=== PATIENT | female | born 1950 | race Caucasian/White ===

== ENCOUNTER 2024-01-27 11:14 | Outpatient (OUT) | payer MEDICARE, OTHER, SELFPAY ==
--- NOTE | 2024-01-27 11:30 | MM_ITS ---
Patient Name: SHANTLA DURAN MR#: [id number] : 1950 Exam Date: 01/27/2024 Ordering Doctor: DR Eddie Sandoval . RADIOLOGY REPORT PROCEDURE: MM TOMOSYNTHESIS SCREENING BI COMPARISON: MG MAMM SCREEN 3D VALERIANO CAD, 06/01/2021. MG MAMM SCREEN 3D VALERIANO CAD, 10/10/2022. INDICATIONS: screening Calculator Name NCI Breast Cancer Risk Assessment Tool 5 Year Breast Cancer Risk 2.40% Lifetime Breast Cancer Risk 5.50% Personal Breast Cancer No Personal Ovarian Cancer No Treatments None Family Cancers Father with hodgkins cancer at age 45; Brother with throat cancer at age 57. LOCATION: [facility] BREAST COMPOSITION: Heterogeneously dense,which may obscure small masses. FINDINGS: DIAGNOSTIC CATEGORY 2--BENIGN FINDING. NO CHANGE FROM COMPARISON. Scattered benign-appearing calcifications are present. Scattered benign-appearing lymph nodes are present. RIGHT BREAST: No significant suspicious finding. Microclip marker is stable LEFT BREAST: No significant suspicious finding. RECOMMENDATIONS: ROUTINE MAMMOGRAM AND CLINICAL EVALUATION IN 12 MONTHS. PLEASE NOTE: A NORMAL MAMMOGRAM DOES NOT EXCLUDE THE POSSIBILITY OF BREAST CANCER. A CLINICALLY SUSPICIOUS PALPABLE LUMP SHOULD BE BIOPSIED. Dictated by: Mathieu Combs MD on 01/27/2024 at 12:20 Approved by: Mathieu Combs MD on 01/27/2024 at 12:23
[2024-01-27 11:31] LABS: Basophils Absolute Auto 0.1 10^3/uL (0.0-0.1); Basophils Percent Auto 1.1 % (0.2-2.0); Eosinophils Absolute Auto 0.1 10^3/uL (0.0-0.7); Eosinophils Percent Auto 1.1 % (0.9-7.0); Hematocrit 44.8 % (36.0-48.0); Hemoglobin 14.1 g/dL (12.0-16.0); Immature Granulocytes Abs Auto 0.01 10^3/uL (0.00-0.03); Immature Granulocytes Pct Auto 0.1 % (0.0-0.5); Lymphocytes Absolute Auto 2.4 10^3/uL (1.2-3.8); Lymphocytes Percent Auto 32.7 % (20.5-60.0); Mean Corpuscular HGB Conc 31.5 g/dL (29.9-35.2); Mean Corpuscular Hemoglobin 28.3 pg (26.7-34.0); Mean Platelet Volume 9.6 fL (9.5-13.5); Monocytes Absolute Auto 0.5 10^3/uL (0.3-0.8); Monocytes Percent Auto 6.2 % (1.7-12.0); Neutrophils Absolute Auto 4.3 10^3/uL (1.4-6.5); Neutrophils Percent Auto 58.8 % (43.0-75.0); Platelet Count 329 10^3/uL (150-450); Red Blood Count 4.98 10^6/uL (4.20-5.40); Red Cell Distribution Width 14.6 % (11.0-15.0); White Blood Count 7.3 10^3/uL (4.0-11.0)
[2024-01-27 11:43] LABS: Estimated Average Glucose 134 mg/dL; Glycohemoglobin A1C 6.3 % (4.5-6.2)
[2024-01-27 11:48] LABS: Occult Blood Negative
[2024-01-27 12:09] LABS: Alanine Aminotransferase 37 U/L (14-59); Albumin Globulin Ratio 0.8; Albumin Level 3.4 g/dL (3.4-5.0); Alkaline Phosphatase 87 U/L (46-116); Anion Gap 11.8; Aspartate Amino Transferase 24 U/L (15-37); BUN Creatinine Ratio 11.8; Bilirubin Total 0.4 mg/dL (0.2-1.0); Calcium 9.3 mg/dL (8.5-10.1); Carbon Dioxide 30.3 mmol/L (21.0-32.0); Chloride 101 mmol/L (98-107); Cholesterol 173 mg/dL (<=200); Estimated GFR (African America >60 (>=60); Estimated GFR (Non-African Ame 53 (>=60); Free T3 3.02 pg/mL (2.18-3.98); Globulin 4.1 g/dL; Glucose 113 mg/dL (74-106); HDL Cholesterol 57 mg/dL (40-60); Potassium 4.1 mmol/L (3.5-5.1); Sodium 139 mmol/L (136-145); Thyroid Stimulating Hormone 0.634 uIU/mL (0.358-3.740); Total Protein 7.5 g/dL (6.4-8.2); Triglycerides 155 mg/dL (<=150)
== END 2024-01-27 11:15 | disposition home or self-care (01) ==
LOC: MAMMO 11:15
PROVIDERS: PCP Family Medicine; Visit Provider Family Medicine
DX: Z12.31 Encounter for screening mammogram for malignant neoplasm of breast (principal); J44.9 Chronic obstructive pulmonary disease, unspecified; E11.9 Type 2 diabetes mellitus without complications; E78.5 Hyperlipidemia, unspecified; R73.09 Other abnormal glucose; Z12.12 Encounter for screening for malignant neoplasm of rectum; D64.9 Anemia, unspecified; E55.9 Vitamin D deficiency, unspecified; Z80.7 Family history of other malignant neoplasms of lymphoid, hematopoietic and related tissues; Z80.8 Family history of malignant neoplasm of other organs or systems
CPT/HCPCS: 36415; 77063; 77067; 80053; 80061; 82306; 83036; 83540; 84436; 84443; 84481; 85025; G0328

== ENCOUNTER 2025-01-27 12:32 | Outpatient (OUT) | payer MEDICARE, OTHER, SELFPAY ==
--- NOTE | 2025-01-27 | MM_ITS ---
Patient Name: SHANTAL DURAN MR#: [id number] : 1950 Exam Date: 01/27/2025 Ordering Doctor: DR Eddie Sandoval . RADIOLOGY REPORT PROCEDURE: MM TOMOSYNTHESIS SCREENING BI COMPARISON: MM TOMOSYNTHESIS SCREENING BI, 01/27/2024. MG MAMM SCREEN 3D VALERIANO CAD, 10/10/2022. MG MAMM SCREEN 3D VALERIANO CAD, 06/01/2021. MG MAMM VALERIANO SCRN W CAD DIG, 06/02/2015. INDICATIONS: Screening Calculator Name NCI Breast Cancer Risk Assessment Tool 5 Year Breast Cancer Risk 2.40% Lifetime Breast Cancer Risk 5.10% Personal Breast Cancer No Personal Ovarian Cancer No Treatments None Family Cancers Father with hodgkins cancer at age 45; Brother with throat cancer at age 57. LOCATION: [facility] BREAST COMPOSITION: The breasts are heterogeneously dense,which may obscure small masses. FINDINGS: DIAGNOSTIC CATEGORY 1--NEGATIVE. LEFT BREAST: No significant suspicious finding. RIGHT BREAST: No significant suspicious finding. RECOMMENDATIONS: ROUTINE MAMMOGRAM AND CLINICAL EVALUATION IN 12 MONTHS. PLEASE NOTE: A NORMAL MAMMOGRAM DOES NOT EXCLUDE THE POSSIBILITY OF BREAST CANCER. A CLINICALLY SUSPICIOUS PALPABLE LUMP SHOULD BE BIOPSIED. Dictated by: Mook Wood DO on 01/27/2025 at 16:05 Approved by: Mook Wood DO on 01/27/2025 at 16:06
--- OUTSIDE RECORDS SUMMARY | 2025-01-27 12:38 | XMS_ITS | CCD ---
Author Organization [facility] Care Team Providers Care Ethical Hacker Name Role Phone ANGELAY ., DR HERRMANN Consulting Unavailable HOY ., DR HERRMANN Admitting Unavailable HOY ., DR HERRMANN Primary Care Unavailable HOY ., DR HERRMANN Attending Unavailable WEST, DR MJ Ames Consulting Unavailable HOY ., DR HERRMANN Consulting Unavailable HOY ., DR HERRMANN Attending Unavailable HOY ., DR HERRMANN Admitting Unavailable HOY ., DR HERRMANN Primary Care Unavailable HOY ., DR HERRMANN Attending Unavailable HOY ., DR HERRMANN Admitting Unavailable HOY ., DR HERRMANN Primary Care Unavailable HOY ., DR HERRMANN Consulting Unavailable WEST, DR MJ Ames Consulting Unavailable HOY ., DR HERRMANN Admitting Unavailable HOY ., DR HERRMANN Primary Care Unavailable HOY ., DR HERRMANN Attending Unavailable HOY ., DR HERRMANN Consulting Unavailable HOY ., DR HERRMANN Attending Unavailable HOY ., DR HERRMANN Admitting Unavailable HOY ., DR HERRMANN Primary Care Unavailable HOY ., DR HERRMANN Consulting Unavailable HOY ., DR HERRMANN Admitting Unavailable HOY ., DR HERRMANN Primary Care Unavailable HOY ., DR HERRMANN Attending Unavailable Al Shweiki, Bharat Attending Unavailable Al Shweiki, Bharat Referring Unavailable Al Shweiki, Bharat Attending Unavailable Al Shweiki, Bharat Referring Unavailable Al Shweiki, Bharat Attending Unavailable Al Shweiki, Bharat Referring Unavailable Al Shweiki, Bharat Attending Unavailable Al Shweiki, Bharat Referring Unavailable Al Shweiki, Bharat Attending Unavailable Al Shweiki, Bharat Referring Unavailable Allergies Allergy Classification Reported Allergen(s) Allergy Type Date of Onset Reaction(s) Facility (2 sources) Iodine (And Iodine Containting Drugs) Drug allergy (disorder) [facility] Repository Problems Active Problems Problem Classification Problem Date Documented Da te Episodic/Chronic Cataract (1 source) Combined forms of age-related cataract, bilateral; Translations: [Combined forms of age-related cataract of both eyes] Onset: 07-27-2024 Chronic Congestive heart failure; nonhypertensive (1 source) Heart failure, unspecified; Translations: [HEART FAILURE UNSPECIFIED] Onset: 01-19-2023 Chronic Diabetes mellitus without complication (1 source) Other abnormal glucose; Translations: [OTHER ABNORMAL GLUCOSE] Onset: 01-19-2023 Episodic Disorders of lipid metabolism (5 sources) Hyperlipidemia, unspecified; Translations: [HYPERLIPIDEMIA UNSPECIFIED] Onset: 01-14-2023 Chronic Essential hypertension (1 source) Essential (primary) hypertension; Translations: [Hypertension] Onset: 10-12-2024 Chronic Malaise and fatigue (1 source) Other fatigue; Translations: [OTHER FATIGUE] Onset: 01-17-2023 Episodic Menopausal disorders (4 sources) Other primary ovarian failure; Translations: [OTHER PRIMARY OVARIAN FAILURE] Onset: 10-10-2022 Chronic Nutritional deficiencies (1 source) Vitamin D deficiency, unspecified; Translations: [VITAMIN D DEFICIENCY UNSPECIFIED] Onset: 01-17-2023 Chronic Other eye disorders (1 source) Vitreous degeneration, bilateral; Translations: [PVD (posterior vitreous detachment), both eyes] Onset: 07-27-2024 Chronic Other screening for suspected conditions (not mental disorders or infectious disease) (6 sources) Encounter for screening for malignant neoplasm of rectum; Translations: [Encounter for screening mammogram for malignant neoplasm of breast] Onset: 10-14-2022 Episodic Retinal detachments; defects; vascular occlusion; and retinopathy (2 sources) Nonexudative age-related macular degeneration, bilateral, 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; Translations: [Exudative age-related macular degeneration, bilateral, with active choroidal neovascularization] Onset: 07-27-2024 Chronic Thyroid disorders (1 source) Nontoxic single thyroid nodule; Translations: [NONTOXIC SINGLE THYROID NODULE] Onset: 05-16-2022 Chronic Unclassified (3 sources) CONTACT W/AND (SUSP) EXPOS COVID-19; Translations: [CONTACT W/AND (SUSP) EXPOS COVID-19] Onset: 10-07-2022 Unclassified (1 source) COUGH, UNSPECIFIED; Translations: [COUGH, UNSPECIFIED] Onset: 10-07-2022 Past or Other Problems Problem Classification Problem Date Documented Date Episodic/Chronic Other eye disorders (1 source) Dry eye syndrome of bilateral lacrimal glands; Translations: [Dry eyes, bilateral] Onset: 07-27-2024 Episodic Other skin disorders (4 sources) Localized swelling, mass and lump, neck; Translations: [LOCALIZED SWELLING MASS AND LUMP NECK] Onset: 05-14-2022 Episodic Other upper respiratory disease (1 source) Nasal congestion; Translations: [NASAL CONGESTION] Onset: 10-07-2022 Episodic Residual codes; unclassified (1 source) Family history of malignant neoplasm of other respiratory and intrathoracic organs; Translations: [FAM HX MAL NEOPLSM OTH RESP AND IT ORGN] Onset: 10-14-2022 Episodic Residual codes; unclassified (1 source) Family history of other malignant neoplasms of lymphoid, hematopoietic and related tissues; Translations: [FAM HX OTH MAL GREGORIO LYMPH HEMATPOETC] Onset: 10-14-2022 Episodic Unclassified (1 source) CONTACT W/AND (SUSP) EXPOS COVID-19; Translations: [CONTACT W/AND (SUSP) EXPOS COVID-19] Onset: 10-04-2022 Results Test Name Value Interpretation Reference Range Facility OCC BLD IMMUNO SCREENon 12-26 OCCULT BLOOD Negative Normal NEGATIVE [facility] Comment on above: Performed By: #### O BSCRN #### [facility] [address] [address] [address] Pascual Pittman BNPon 01-14-2023 Natriuretic peptide B (Bld) [Mass/Vol] 44.0 pg/mL Normal <=900.0 [facility] Comment on above: Performed By: #### F T3, BNP, LIPID, TSH, T4, CMP ####[facility] [address] [place], [place] [address]YzDr. Pascual Pittman CBC AUTO DIFFon 01-14-2023 BASO # 0.0 103/ul Normal 0.0-0.1 [facility] Comment on above: Performed By: #### C BC #### [facility] [address] [place], [place] [address] Dr. Pascual Pittman Basophils/100 WBC (Bld) 0.6 % Normal 0.2-2.0 [facility] Comment on above: Performed By: #### C BC #### [facility] [address] [place] [address] Dr. Pascual Pittman EO # 0.1 103/ul Normal 0.0-0.7 [facility] Comment on above: Performed By: #### C BC #### [facility] [address] [place] [address] Dr. Pascual Pittman Eosinophils/100 WBC (Bld) 1.1 % Normal 0.9-7.0 [facility] Comment on above: Performed By: #### C BC #### [facility] [address] [place] [address] Dr. Pascual Pittman Erythrocyte distribution width (RBC) [Ratio] 14.8 % Normal 11.0-15.0 [facility] Comment on above: Performed By: #### C BC #### [facility] [address] [place] [address] Dr. Pascual Pittman Hematocrit (Bld) [Volume fraction] 43.4 % Normal 36.0-48.0 [facility] Comment on above: Performed By: #### C BC #### [facility] [address] [place] [address] Dr. Pascual Pittman Hemoglobin (Bld) [Mass/Vol] 13.8 g/dL Normal 12.0-16.0 [facility] Comment on above: Performed By: #### C BC #### [facility] [address] [place] [address] Dr. Pascual Pittman IG # 0.02 10e3/ul Normal 0.00-0.03 [facility] Comment on above: Performed By: #### C BC #### [facility] [address] [place] [address] Dr. Pascual Pittman IG % 0.3 % Normal 0.0-0.5 [facility] Comment on above: Performed By: #### C BC #### [facility] [address] [place] [address] Dr. Pascual Pittman LYMPH # 2.1 103/ul Normal 1.2-3.8 [facility] Comment on above: Performed By: #### C BC #### [facility] [address] [place] [address] Dr. Pascual Pittman Lymphocytes/100 WBC (Bld) 32.3 % Normal 20.5-60.0 [facility] Comment on above: Performed By: #### C BC #### [facility] [address] [place] [address] Dr. Pascual Pittman MANUAL DIFF REQ NO Normal [facility] Comment on above: Performed By: #### C BC #### [facility] [address] [place] [address] Dr. Pascual Pittman MCH (RBC) [Entitic mass] 28.0 pg Normal 26.7-34.0 [facility] Comment on above: Performed By: #### C BC #### [facility] [address] [place] [address] Dr. Pascual Pittman MCHC (RBC) [Mass/Vol] 31.8 g/dL Normal 29.9-35.2 [facility] Comment on above: Performed By: #### C BC #### [facility] [address] [place] [address] Dr. Pascual Pittman MCV (RBC) [Entitic vol] 88.0 fL Normal 81.0-99.0 [facility] Comment on above: Performed By: #### C BC #### [facility] [address] [place] [address] Dr. Pascual Pittman MONO # 0.5 103/ul Normal 0.3-0.8 [facility] Comment on above: Performed By: #### C BC #### [facility] [address] [place] [address] Dr. Pascual Pittman Monocytes/100 WBC (Bld) 7.0 % Normal 1.7-12.0 [facility] Comment on above: Performed By: #### C BC #### [facility] [address] [place] [address] Dr. Pascual Pittman NEUT # 3.8 103/ul Normal 1.4-6.5 [facility] Comment on above: Performed By: #### C BC #### [facility] [address] [address] [address] Pascual Pittman Neutrophils/100 WBC (Bld) 58.7 % Normal 43.0-75.0 [facility] Comment on above: Performed By: #### C BC #### [facility] [address] [address] [address] Pascual Pittman Platelet mean volume (Bld) [Entitic vol] 9.5 fL Normal 9.5-13.5 [facility] Comment on above: Performed By: #### C BC #### [facility] [address] [address] [address] Pascual Pittman PLT 318 103/ul Normal 150-450 [facility] Comment on above: Performed By: #### C BC #### [facility] [address] [address] [address] Pascual Pittman RBC 4.93 106/ul Normal 4.20-5.40 [facility] Comment on above: Performed By: #### C BC #### [facility] [address] [address] [address] Pascual Pittman WBC 6.5 103/ul Normal 4.0-11.0 [facility] Comment on above: Performed By: #### C BC #### [facility] [address] [address] [address] Pascual Pittman FREE T3on 01-14-2023 FREE T3 2.78 pg/mlL Normal 2.18-3.98 [facility] Comment on above: Performed By: #### F T3, BNP, LIPID, TSH, T4, CMP ####[facility] [address] [address]Dr. Pascual Pittman GLYCOHEMOGLOBIN A1Con 2022 ADA RECOMMENDATION SEE BELOW Normal [facility] Comment on above: Result Comment: ADA RECOMMENDED LIMIT 4.0 - 6.0 ADA THERAPEUTIC TARGET < 7.0 ACTION SUGGESTED > 7.0 Performed By: #### A 1C ####[facility] [address] [address]Dr. Pascual Pittman Glucose [Mass/Vol] 123 mg/dL Normal [facility] Comment on above: Performed By: #### A 1C ####[facility] [address] [id number][address] Pascual Pittman HbA1c (Bld) [Mass fraction] 5.9 % Normal 4.5-6.2 [facility] Comment on above: Performed By: #### A 1C ####[facility] [address] [id number]. Pascual Pittman LIPID PROFILEon 01-14-2023 CHOL-HDL RATIO NORM SEE BELOW Normal [facility] Comment on above: Result Comment: 3.3 - 4.4 LOW RISK 4.4 - 7.1 AVERAGE RISK 7.1 - 11.0 MODERATE RISK >11.0 HIGH RISK Performed By: #### F T3, BNP, LIPID, TSH, T4, CMP ####[facility] [address] [place], [place] [address]Dr. Pascual Pittman Cholesterol [Mass/Vol] 190 mg/dL Normal <=200 [facility] Comment on above: Performed By: #### F T3, BNP, LIPID, TSH, T4, CMP ####[facility] [address] [place], [place] [address]Dr. Pascual Pittman Cholesterol in HDL [Mass/Vol] 56 mg/dL Normal 40-60 [facility] Comment on above: Performed By: #### F T3, BNP, LIPID, TSH, T4, CMP ####[facility] [address] [id number][address] Pascual Pittman Cholesterol in LDL [Mass/Vol] 97.8 mg/dL Normal [facility] Comment on above: Performed By: #### F T3, BNP, LIPID, TSH, T4, CMP ####[facility] [address] [id number][address] Pascual Pittman Cholesterol.total/Cho lesterol in HDL [Mass ratio] 3.4 {ratio} Normal [facility] Comment on above: Performed By: #### F T3, BNP, LIPID, TSH, T4, CMP ####[facility] [address] [id number][address] Pascual Pittman HDL NORMAL > or = 60 mg/dl - LO W CARDIOVASCULAR RISK <40 mg/dl - HIGH CARDIOVASCULAR RISK Normal [facility] Comment on above: Performed By: #### F T3, BNP, LIPID, TSH, T4, CMP ####[facility] [address] [address]DrSharonda Pittman LDL CALC NORMAL SEE BELOW Normal [facility] Comment on above: Result Comment: <100 mg/dl OPTIMAL 100 - 129 mg/dl NEAR OR ABOVE OPTIMAL 130 - 159 mg/dl BORDERLINE HIGH 160 - 189 mg/dl HIGH >190 mg/dl VERY HIGH Performed By: #### F T3, BNP, LIPID, TSH, T4, CMP ####[facility] [address] [address]DrSharonda Pittman Triglyceride [Mass/Vol] 181 mg/dL Critically high <=150 [facility] Comment on above: Performed By: #### F T3, BNP, LIPID, TSH, T4, CMP ####[facility] [address] [address]DrSharonda Pittman VLDL CALC 36.2 mg/dL Normal [facility] Comment on above: Performed By: #### F T3, BNP, LIPID, TSH, T4, CMP ####[facility] [address] [address]Dr. Pascual Pittman PROF 14(COMP METB)on 023 Albumin [Mass/Vol] 3.8 g/dL Normal 3.4-5.0 [facility] Comment on above: Performed By: #### F T3, BNP, LIPID, TSH, T4, CMP #### [facility] [address] [place] [address] Dr. Pascual Pittman Albumin/Globulin [Mass ratio] 1.0 {ratio} Normal [facility] Comment on above: Performed By: #### F T3, BNP, LIPID, TSH, T4, CMP #### [facility] [address] [place] [address] Dr. Pascual Pittman ALP [Catalytic activity/Vol] 101 U/L Normal 46-116 [facility] Comment on above: Performed By: #### F T3, BNP, LIPID, TSH, T4, CMP #### [facility] [address] [place] [address] Dr. Pascual Pittman ALT [Catalytic activity/Vol] 28 U/L Normal 14-59 [facility] Comment on above: Performed By: #### F T3, BNP, LIPID, TSH, T4, CMP #### [facility] [address] [place] [address] Dr. Pascual Pittman Anion gap [Moles/Vol] 11.3 mmol/L Normal [facility] Comment on above: Performed By: #### F T3, BNP, LIPID, TSH, T4, CMP #### [facility] [address] [place] [address] Dr. Pascual Pittman AST [Catalytic activity/Vol] 19 U/L Normal 15-37 [facility] Comment on above: Performed By: #### F T3, BNP, LIPID, TSH, T4, CMP #### [facility] [address] [place] [address] Dr. Pascual Pittman Bilirubin [Mass/Vol] 0.3 mg/dL Normal 0.2-1.0 [facility] Comment on above: Performed By: #### F T3, BNP, LIPID, TSH, T4, CMP #### [facility] [address] [place] [address] Dr. Pascual Pittman Calcium [Mass/Vol] 10.0 mg/dL Normal 8.5-10.1 [facility] Comment on above: Performed By: #### F T3, BNP, LIPID, TSH, T4, CMP #### [facility] [address] [place] [address] Dr. Pascual Pittman Chloride [Moles/Vol] 102 mmol/L Normal 98-107 [facility] Comment on above: Performed By: #### F T3, BNP, LIPID, TSH, T4, CMP #### [facility] [address] [place] [address] Dr. Pascual Pittman CO2 [Moles/Vol] 30.0 mmol/L Normal 21.0-32.0 [facility] Comment on above: Performed By: #### F T3, BNP, LIPID, TSH, T4, CMP #### [facility] [address] [address] [address] Pascual Pittman Creatinine [Mass/Vol] 0.75 mg/dL Normal 0.55-1.02 [facility] Comment on above: Performed By: #### F T3, BNP, LIPID, TSH, T4, CMP #### [facility] [address] [address] [address] Pascual Pittman EGFR-AF SAUDI ARABIAN >60 Normal >=60 [facility] Comment on above: Performed By: #### F T3, BNP, LIPID, TSH, T4, CMP #### [facility] [address] [address] [address] Pascual Pittman EGFR-NON AF SAUDI ARABIAN >60 Normal >=60 [facility] Comment on above: Performed By: #### F T3, BNP, LIPID, TSH, T4, CMP #### [facility] [address] [place] [address] Dr. Pascual Pittman Globulin (S) [Mass/Vol] 3.8 g/dL Normal [facility] Comment on above: Performed By: #### F T3, BNP, LIPID, TSH, T4, CMP #### [facility] [address] [place] [address] Dr. Pascual Pittman Glucose [Mass/Vol] 115 mg/dL Critically high 74-106 [facility] Comment on above: Performed By: #### F T3, BNP, LIPID, TSH, T4, CMP #### [facility] [address] [place] [address] Dr. Pascual Pittman Potassium [Moles/Vol] 4.3 mmol/L Normal 3.5-5.1 [facility] Comment on above: Performed By: #### F T3, BNP, LIPID, TSH, T4, CMP #### [facility] [address] [place] [address] Dr. Pascual Pittman Protein [Mass/Vol] 7.6 g/dL Normal 6.4-8.2 [facility] Comment on above: Performed By: #### F T3, BNP, LIPID, TSH, T4, CMP #### [facility] [address] [place] [address] Dr. Pascual Pittman Sodium [Moles/Vol] 139 mmol/L Normal 136-145 [facility] Comment on above: Performed By: #### F T3, BNP, LIPID, TSH, T4, CMP #### [facility] [address] [address] [address] Pascual Pittman Urea nitrogen [Mass/Vol] 16.0 mg/dL Normal 7.0-18.0 [facility] Comment on above: Performed By: #### F T3, BNP, LIPID, TSH, T4, CMP #### [facility] [address] [address] [address] Pascual Pittman Urea nitrogen/Creatinine [Mass ratio] 21.3 mg/mg Normal [facility] Comment on above: Performed By: #### F T3, BNP, LIPID, TSH, T4, CMP #### [facility] [address] [address] [address] Pascual Pittman T4on 01-14-2023 T4 [Mass/Vol] 11.10 ug/dL Normal 4.80-13.90 [facility] Comment on above: Performed By: #### F T3, BNP, LIPID, TSH, T4, CMP #### [facility] [address] [address] [address] Pascual Pittman TSHon 01-14-2023 TSH 0.274 uIU/mL Critically low 0.358-3.740 [facility] Comment on above: Performed By: #### F T3, BNP, LIPID, TSH, T4, CMP ####[facility] [address] [address]Dr. Pascual Pittman VITAMIN D 25 OHon 01-14-2023 VIT D 25-OH 44.5 ng/mL Normal [facility] Comment on above: Performed By: #### V ITAD #### [facility] [address] [id number] Pascual Pittman VIT D RANGES SEE BELOW Normal [facility] Comment on above: Result Comment: <20 ng/mL Vit D deficient 20 - <30 ng/mL Vit D insufficient 30 - 100 ng/mL Vit D sufficient >100 ng/mL Potential Toxicity Performed By: #### V ITAD #### [facility] [address] [address] [address] Pascual Pittman MG MAMM SCREEN 3D VALERIANO CADon 10-10-2022 MG MAMM SCREEN 3D VALERIANO CAD Patient: ALBANIA DURAN Exam Date: 10/10/2022 : 1950 Gender:F Ordering : DR MONTEZ SHORT . Admission #: [id number] Family : Order #: [id number] CLICK HERE TO VIEW EXAM RADIOLOGY REPORT PROCEDURE: MAMMOGRAM SCREENING 3D BILATERAL CAD COMPARISON: MG MAMM SCREEN 3D VALERIANO CAD, 06/01/2021. MG MAMM SCREEN VALERIANO W CAD, 05/23/2020. INDICATIONS: Screening mammography Calculator Name NCI Breast Cancer Risk Assessment Tool 5 Year Breast Cancer Risk 2.40% Lifetime Breast Cancer Risk 6.10% Personal Breast Cancer No Personal Ovarian Cancer No Treatments None Family Cancers Father with hodgkins cancer at age 45; Brother with throat cancer at age 57. LOCATION: [facility] BREAST COMPOSITION: Heterogeneously dense,which may obscure small masses. FINDINGS: DIAGNOSTIC CATEGORY 1--NEGATIVE. NO CHANGE FROM COMPARISON ASSESSMENT. Scattered benign-appearing calcifications are present. Scattered benign-appearing lymph nodes are present. RIGHT BREAST: No significant suspicious finding. LEFT BREAST: No significant suspicious finding. RECOMMENDATIONS: ROUTINE MAMMOGRAM AND CLINICAL EVALUATION IN 12 MONTHS. PLEASE NOTE: A NORMAL MAMMOGRAM DOES NOT EXCLUDE THE POSSIBILITY OF BREAST CANCER. A CLINICALLY SUSPICIOUS PALPABLE LUMP SHOULD BE BIOPSIED. Dictated by: Mj Patterson MD on 10/10/2022 at 10:41 Approved by: Mj Patterson MD on 10/10/2022 at 10:44 Normal [facility] XR DEXA BONE DENSITYon 10-10 XR DEXA BONE DENSITY EXAMINATION: XR DEX A BONE DENSITY, 10/10/2022 9:45 AM EST HISTORY: Primary ovarian failure COMPARISON: 2008 TECHNIQUE: Dual-energy X-ray absorptiometry (DEXA) bone density study performed for the axial skeleton. FINDINGS: Bone mineral density AP spine L1-L4 measures 1.111 g/sq cm. T score -0.6. WHO classification: Normal. Bone mineral density in the femurs measures 1.011 g/sq cm. T score 0.1. WHO classification: Normal IMPRESSION: Normal bone mineral density. Low fracture risk Electronically authenticated by: MJ PATTERSON Date: 2022-10-10 12:58 Normal [facility] Covid-19 PCR (CVDTBH)on 09-24 SARS-CoV-2 (COVID-19) RNA MILTON+probe Ql (Unsp spec) Not detected Normal NOT DETECTED [facility] Comment on above: Result Comment: This test is not yet approved or cleared by the [place] FDA. When there are no FDA-approved or cleared tests available, and other criteria are met, FDA can make tests available under an emergency access mechanism called an Emergency Use Authorization (EUA). The EUA for this test is supported by the Appraiser Auditor of Health and Human Service's (HHS's) declaration that circumstances exist to justify the emergency use of in vitro diagnostics for the detection and/or diagnosis of the virus that causes COVID-19. This EUA will remain in effect (meaning this test can be used) for the duration of the COVID-19 declaration justifying emergency of IVDs, unless it is terminated or revoked by FDA (after which the test may no longer be used). When diagnostic testing is negative, the possibility of a false negative should be considered in the context of a patient's recent exposures and the presence of clinical signs and symptoms consistent with SARS-CoV-2. Performed By: #### C VDTBH #### [facility] [address] [place] [address] Dr. Pascual Pittman INFLUENZA A AND B AGon 10-04 [facility] SEE BELOW Normal [facility] Comment on above: Result Comment: Nega tive for Flu A protein angiten. Infection due to Flu A cannot be ruled out. Flu A angiten in the sample may be below the detection limit of the test. Performed By: #### I NFLUAB #### [facility] [address] [place] [address] Dr. Pascual Pittman [facility] SEE BELOW Normal [facility] Comment on above: Result Comment: Nega tive for Flu B protein antigen. Infection due to Flu B cannot be ruled out. Flu B antigen in the sample may be below the detection limit of the test. Performed By: #### I NFLUAB #### [facility] [address] [place] [address] Dr. Pascual Pittman INFLUENZA A AG Negative Normal NEGATIVE SEE COMMENT [facility] Comment on above: Performed By: #### I NFLUAB #### [facility] [address] [address] [address] Pascual Pittman INFLUENZA B AG Negative Normal NEGATIVE SEE COMMENT [facility] Comment on above: Performed By: #### I NFLUAB #### [facility] [address] [address] [address] Pascual Pittman INTERNAL CONTROLS Within Normal Limits Normal Wi thin Normal Limits [facility] Comment on above: Performed By: #### I NFLUAB #### [facility] [address] [address] [address] Pascual Pittman THYROIDon 05-14-2022 US THYROID EXAMINATION: US THYROID HISTORY: Mass of neck COMPARISON: No relevant comparison available. TECHNIQUE: Sonographic images of the thyroid gland were obtained. FINDINGS: The right thyroid lobe is normal in size, contour and homogeneous echotexture measuring 5.0 x 1.7 x 2.1 cm. Single 5 mm nodule The thyroid isthmus measures 2.8 mm, normal homogeneous echotexture. No nodule. The left thyroid lobe is normal in size, contour and echotexture measuring 4.8 x 2.1 x 2.1 cm. No focal nodules No ultrasound abnormality in the mid anterior neck in the area the patient's palpable abnormality IMPRESSION: Single 5 mm right thyroid nodule. No follow-up required No ultrasound abnormality to correspond to the patient's palpable abnormality Electronically authenticated by: MJ PATTERSON Date: 2022-05-14 16:18 Normal [facility] General Surgery Office/Clini c Noteon 07-06-2020 General Surgery Office/Clinic Note Chief Complaint post operative follow up HPI Staff 13 day post operative follow up post colonoscopy with ascending colon polypectomy. Denies abdominal or rectal pain. Denies rectal bleeding. History of Present Illness s/p colonoscopy for + Cologuard, found 1.5 cm sessile ascending colon polyp, pathology consistent with tubular adenoma; doing well, denies abdominal pain or blood in stools. Review of Systems ROS - Provider Constitutional: no fever, no sweats, no weight loss. Eyes: no glasses, no blurred vision, no visual loss. ENMT: no dentures, no hoarseness, no swallowing difficulties, no hearing loss, no ear infection(s), no nose bleeds. Cardiovascular: normal blood pressure, no chest pain, regular heartbeat, no heart murmur. Respiratory: no shortness of breath, no cough, no asthma, no wheezing. Gastrointestinal: no nausea, no vomiting, no diarrhea, no constipation, no blood in stool, no change in bowel habits, no abdominal pain, no hepatitis. Genitourinary: no kidney stones, no urine infection, no dysuria. Musculoskeletal: no pain, no weakness. Skin: no changing moles, no rash, no skin lumps. Neurologic: no seizures, no epilepsy, no headache. Psychiatric: no emotional or psychiatric problem. Heme/Lymph: no bleeding problems, no anemia, no blood clots, no transfusions. Allergy/Immunologic: no swollen lymph nodes/glands, no IV drug abuse. Other: Additional ROS info: Except as noted in the above Review of Systems and in the History of Present Illness, all other systems have been reviewed and are negative or noncontributory. Physical Exam Vitals & Measurements T: 36.5 ?C (Tympanic) abd: soft, nontender, nondistended Assessment/Plan 1. Tubular adenoma of colon (D12.6: Benign neoplasm of colon, unspecified) doing well, recommend follow up colonoscopy in 5 years for surveillance, call sooner if problems/questions. Follow-up No qualifying data available Problem List/Past Medical History Ongoing Controlled type 2 diabetes mellitus Emphysema/COPD HTN (hypertension) Macular degeneration Occult blood in stools Positive colorectal cancer screening using Cologuard test Tubular adenoma of colon Historical No qualifying data Procedure/Surgical History Colonoscopy (06/21/2020), Appendectomy, Tonsillectomy, Vaginal hysterectomy. Medications calcium-vitamin D 600 mg-200 intl units oral capsule, 1 cap(s), Oral, BID cetirizine 10 mg Tab, 10 mg= 1 tab(s), Oral, Daily fluticasone-salmetero l 113 mcg-14 mcg/inh inhalation powder, 1 inh, Inhalation, BID lisinopril 20 mg Tab, 20 mg= 1 tab(s), Oral, Daily One A Day Women 50 Plus, See Instructions PreserVision AREDS 2, 1 cap(s), Oral, Daily Allergies Contrast Dye (Unknown) Social History Alcohol - Denies Alcohol Use, 06/01/2020 Substance Abuse - Denies Substance Abuse, 06/01/2020 Tobacco Former smoker, quit more than 30 days ago Tobacco Use:., 06/01/2020 Family History Dementia: Mother. Hodgkin's disease: Father. Primary malignant neoplasm of colon: Mother. Normal [facility] Comment on above: Result Comment: Elec tronically Signed By: HANNAH TELLEZ, Kade Perez\Date and Time Signed: 07/06/20 10:41 EDT Reminderson 07-06-2020 Reminders - From: Kailyn Sultana LPN To: N - Clinical; Sent: 07/06/2020 10:53:19 EDT Show up: 05/22/2025 09:00:00 EDT Subject: colonoscopy recall Due Date/Time: 06/21/2025 09:00:00 EDT Reminder/Recall Patient is due for repeat colonoscopy in 5 years due to history of colon polyp. Normal [facility] Ambulatory Clinical Summaryo n 07-04-2020 Ambulatory Clinical Summary {[id number] [facility] Outside Colonoscopyon 2019 Outside Colonoscopy [id number] .00CD:127 Normal [facility] Pathology Noteon 06-26-2020 Pathology Note [id number]. 00CD:[address] [facility] Lab Reportson 06-14-2020 Lab Reports [id number] .00CD:[address] [facility] Lab Reports [id number]. 00CD:[address] [facility] Facesheeton 06-05-2020 Facesheet [id number] .00CD:127 Normal [facility] Ambulatory Clinical Summaryo n 06-01-2020 Ambulatory Clinical Summary {[id number]}CD:[id number] Normal [facility] Physician Referralon 020 Physician Referral [id number] .00CD:127 Normal [facility] Encounters Encounter Date Encounter Type Care Provider Facility Start: 12-28-2024 ambulatory [facility] Start: 10-19-2024 ambulatory [facility] Start: 10-12-2024 Office outpatient vi sit 15 minutes [facility] Start: 10-12-2024 ambulatory [facility] Start: 08-24-2024 ambulatory [facility] Start: 07-27-2024 Office outpatient vi sit 25 minutes [facility] Start: 07-27-2024 ambulatory [facility] Start: 01-16-2023 End: 01-16-[address] MONTEZ SHORT . Facility: Start: 01-14-2023 End: 01-15-[address] MONTEZ SHORT . Facility: Start: 10-10-2022 End: 10-11-[address] MONTEZ SHORT . Facility:[facility] Start: 10-04-2022 End: 10-04-[address] MONTEZ SHORT . Facility:[facility] Start: 09-04-[address] MONTEZ SHORT . Facili ty:[facility] Start: 05-14-2022 End: 05-15-[address] MONTEZ SHORT . Facility: Procedures Date Procedure Procedure Detail Performing Clinician Start: 12-28-2024 Computerized ophthal jay imaging retina Bharat Fabian Start: 12-28-2024 Eylea HD Bharat Zarate werafa Start: 12-28-2024 Intravitreal njx pharmacologic agt spx [facility] Start: 10-19-[facility] 10-19-2024 Eylea 1mg Pre-filled Syringe Bharat [facility] Start: 10-19-2024 [facility] Start: 10-12-2024 Complex e/m visit add on Bharat Zarate Start: 10-12-2024 Computerized ophthal jay imaging retina Bharat [facility] Start: 08-24-2024 Computerized ophthal jay imaging retina Bharat [facility] Start: 08-24-2024 Eylea 1mg Pre-filled Syringe [facility] Start: 08-24-2024 [facility] Start: 07-27-2024 Computerized ophthal jay imaging retina Bharat [facility] Start: 07-27-2024 Intravitreal njx pharmacologic agt spx [facility] Start: 07-27-2024 [facility] Payers Date Payer Category Payer Medicare [id number] 1959 Self-pay 1959 Unknown [id number] 1950 Unknown [id number] 2.16.84 [id number] 1950 Unknown [id number] 2.16.84 0.1.959000.3.579.2.593 1949 Unknown [id number] 2.16.84 0.1.527538.3.579.2.593 1949 Unknown [id number] 2.16.84 0.1.676726.3.579.2.593 1949 Unknown [id number] 2.16.84 0.1.660340.3.579.2.593 1949 Unknown [id number] 2.16.84 0.1.005259.3.579.2.593 1949 Unknown [id number] 2.16.84 0.1.686255.3.579.2.1347 1949 Unknown [id number] 2.16.84 0.1.512401.3.579.2.1347 1949 Unknown [id number] 2.16.84 0.1.798138.3.579.2.1347 1949 Unknown [id number] 2.16.840 .1.204255.3.579.2.1347 1949 Unknown [id number] 2.16.840 .[id number] Summary Purpose Family History No Family History Records FoundNo Family History Records FoundNo Family History Records Found Advance Directives No Advanced Directives Records FoundNo Advanced Directives Records FoundNo Advanced Directives Records Found Additional Source Comments INFORMATION SOURCE (unrecogn ized section and content) DATE CREATED AUTHOR 07/07/2020 [facility] DATE CREATED AUTHOR AUTHOR'S ORGANIZ ATION [facility]/2023 [facility] DATE CREATED AUTHOR AUTHOR'S ORGANIZ ATION 12/30/2024 [facility] nstitute FOR RECORDS PERTAINING TO PATIENTS WHO ARE OR HAVE BEEN ENROLLED IN A CHEMICAL DEPENDENCY/SUBSTANCEABUSE PROGRAM, SOME INFORMATION MAY BE OMITTED. This clinical summary was aggregated from multiple sources. Caution should be exercised in using it in the provision of clinical care. This summary normalizes information from multiple sources, and as a consequence, information in this document may materially change the coding, format and clinical context of patient data. In addition, data may be omitted in some cases. CLINICAL DECISIONS SHOULD BE BASED ON THE PRIMARY CLINICAL RECORDS. [facility] [employer] [facility]. provides no warranty or guarantee of the accuracy or completeness of information in this document.
[2025-01-27 12:54] LABS: Basophils Absolute Auto 0.1 10^3/uL (0.0-0.1); Eosinophils Absolute Auto 0.1 10^3/uL (0.0-0.7); Eosinophils Percent Auto 1.5 % (0.9-7.0); Hematocrit 44.1 % (36.0-48.0); Hemoglobin 13.9 g/dL (12.0-16.0); Immature Granulocytes Abs Auto 0.01 10^3/uL (0.00-0.03); Immature Granulocytes Pct Auto 0.2 % (0.0-0.5); Lymphocytes Absolute Auto 2.5 10^3/uL (1.2-3.8); Lymphocytes Percent Auto 42.7 % (20.5-60.0); Mean Corpuscular HGB Conc 31.5 g/dL (29.9-35.2); Mean Corpuscular Hemoglobin 28.6 pg (26.7-34.0); Mean Corpuscular Volume 90.7 fL (81.0-99.0); Mean Platelet Volume 10.1 fL (9.5-13.5); Monocytes Absolute Auto 0.5 10^3/uL (0.3-0.8); Monocytes Percent Auto 7.6 % (1.7-12.0); Neutrophils Absolute Auto 2.8 10^3/uL (1.4-6.5); Platelet Count 269 10^3/uL (150-450); Red Blood Count 4.86 10^6/uL (4.20-5.40); Red Cell Distribution Width 14.2 % (11.0-15.0); White Blood Count 5.9 10^3/uL (4.0-11.0)
[2025-01-27 13:52] LABS: Estimated Average Glucose 137 mg/dL; Glycohemoglobin A1C 6.4 % (4.5-6.2)
[2025-01-27 14:04] LABS: Alanine Aminotransferase 31 U/L (14-59); Albumin Globulin Ratio 1.1; Albumin Level 3.7 g/dL (3.4-5.0); Alkaline Phosphatase 87 U/L (46-116); Anion Gap 13.7; Aspartate Amino Transferase 22 U/L (15-37); BUN Creatinine Ratio 17.4; Bilirubin Total 0.4 mg/dL (0.2-1.0); Calcium 9.6 mg/dL (8.5-10.1); Carbon Dioxide 28.6 mmol/L (21.0-32.0); Chloride 103 mmol/L (98-107); Chol HDL Ratio 2.8; Cholesterol 179 mg/dL (<=200); Estimated GFR (African America >60 (>=60 mL/min/1.73m^2); Estimated GFR (Non-African Ame 60 (>=60 mL/min/1.73m^2); Free T3 2.86 pg/mL (2.18-3.98); Globulin 3.5 g/dL; Glucose 104 mg/dL (74-106); HDL Cholesterol 63 mg/dL (40-60); Potassium 4.3 mmol/L (3.5-5.1); Sodium 141 mmol/L (136-145); Thyroid Stimulating Hormone 0.457 uIU/mL (0.358-3.740); Total Protein 7.2 g/dL (6.4-8.2); Triglycerides 142 mg/dL (<=150); VLDL CHOLESTEROL 28.4 mg/dL
== END 2025-01-27 12:33 | disposition home or self-care (01) ==
LOC: MAMMO 12:33
PROVIDERS: PCP Family Medicine; Visit Provider Family Medicine
DX: Z12.31 Encounter for screening mammogram for malignant neoplasm of breast (principal); I10 Essential (primary) hypertension; E11.9 Type 2 diabetes mellitus without complications; H35.30 Unspecified macular degeneration; E78.5 Hyperlipidemia, unspecified; D64.9 Anemia, unspecified; Z80.7 Family history of other malignant neoplasms of lymphoid, hematopoietic and related tissues; Z80.8 Family history of malignant neoplasm of other organs or systems
CPT/HCPCS: 36415; 77063; 77067; 80053; 80061; 83036; 83540; 84436; 84443; 84481; 85025

== ENCOUNTER 2025-07-06 12:03 | Outpatient (OUT) | payer MEDICARE, OTHER, SELFPAY ==
--- OUTSIDE RECORDS SUMMARY | 2025-04-13 10:37 | XMS_ITS ---
Author Organization The [facility] [place] Address [address] [place] [address] Care Team Providers Care Audograph Operator Name Role Phone Selvin Sandoval Primary Care Provider REASON FOR VISIT refills Medications Medication SIG (Take, Route, Fr equency, Duration) Notes Start Date End Date Status Diclofenac Sodium 75 mg TAKE 1 TABLET BY MOUTH TWICE DAILY for 90 days Active Lisinopril 40 mg TAKE 1 TABLET BY ONEYDA TH DAILY for 90 days Active Encounters Encounter Location Date Provider Diagnosis [facility] [address] [place] [address] 04/13/2025 Selvin Sandoval Hypertension I10 and Radial styloid tenosynovitis [de Quervain] M65.4 Assessments Encounter Date Diagnosis (ICD Code) Assessment Notes Treatment Notes Treatment Clinical Notes Section Notes 04/13/2025 Hypertension (ICD-10 - I10) 04/13/2025 Radial styloid tenosynovitis [de Quervain] (ICD-10 - M65.4) Plan Of Treatment Medication Medication Name Sig Start Date Stop Date Notes Diclofenac Sodium 75 mg TAKE 1 TABLET BY MOUTH TWICE DAILY for 90 days Lisinopril 40 mg TAKE 1 TABLET BY ONEYDA TH DAILY for 90 days Next Appt Details Provider Name:Selvin Sandoval, 10:45:00 AM, [address] [place], [address], Progress Notes * [place] DURAN LDOB:[birth year] (74 yo F)Acc No.[id number]:04/13/2025 Patient: lAbania WERNER :1950 A ge:74 Y S ex:Female Address:[address] [place] [phone] * Refills Refill Lisinopril Tablet, 40 mg, 90 Tablet, TAKE 1 TABLET BY MOUTH DAILY, 90 days, Refills=3 Refill Diclofenac Sodium Tablet Delayed Release, 75 mg, 180, TAKE 1 TABLET BY MOUTH TWICE DAILY, 90 days, Refills=3 * true * Date: Generated for Gal lopez/Steffany/Nabeel on: 0 07/06/2025 12:05 PM EDT
--- OUTSIDE RECORDS SUMMARY | 2025-05-18 06:30 | XMS_ITS ---
Author Organization [facility] [place] Address [address] [place] [address] Care Team Providers Care Silo Painter Name Role Phone Selvin Sandoval Primary Care Provider [phone] REASON FOR VISIT 4mon Encounters Encounter Location Date Provider Diagnosis [facility] [address] [place] [address] 05/18/2025 Selvin Sandoval Plan Of Treatment Next Appt Details Provider Name:Selvin Sandoval, 10:45:00 AM, [address] [place], [address], Progress Notes * [place] LDOB:[birth year] (74 yo F)Acc No.[id number]:05/18/2025 UNLOCKED PROGRESS NOTE Progress Note Patient: [place] WERNER Provider: George Sandoval MD (TTC) :1950 A ge:74 Y S ex:Female Date:05/18/2025 Address:[address] [place], [place] [id number] Subjective: * Chief Complaints: * 1 . 4mon. * Medical History: Objective: * Vitals: Assessment: Plan: * Treatment: * * Electronic signature of Selvin Sandoval MD, [id number] on 07/06/2025 at 12:05 PM EDT Sign off status: Pending Visit Status: C ANC (Cancelled) * Provider: George Sandoval MD (TTC) Date: 0 05/18/2025 Generated for Gal lopez/Steffany/Naelitting on: 0 07/06/2025 12:05 PM EDT
--- OUTSIDE RECORDS SUMMARY | 2025-05-31 06:15 | XMS_ITS ---
Author Organization [facility] [place] Address [address] [place] [address] Care Team Providers Care Air Crew Member Name Role Phone Selvin Sandoval Primary Care Provider Allergies Allergen (clinical drug ingredient) Drug/Non Drug Allergy documented on EMR Reaction Allergy Type Onset Date Status Contract Dye (uncoded) hives Allergy Active REASON FOR VISIT 4mon Medications Medication SIG (Take, Route, Frequency, Duration) Notes Start Date End Date Status PreserVision AREDS 2 - as directed Orally bid Active One A Day Women 50 Plus - as directed Orally Active Lisinopril 40 mg TAKE 1 TABLET BY ONEYDA TH DAILY for 90 days Active Glucose Test Strips used to test blood s ugar daily DX E11.9 for 90 days 01/31/2025 Activ e Syfovre 15 MG/0.1ML as directed Intravit real every 8 weeks Active metFORMIN HCl 500 MG 1 tablet with a orly l Orally bid for 30 days 05/31/2025 Active Glucose Meter used to test blood s ugar daily dx: E11.9 for 365 days 01/31/2025 Active Glucose Lancets used to test blood g lucose daily dx E11.9 for 90 days 01/31/2025 Activ e Eylea 2 MG/0.05ML 0.05 mL Intravitreal 10 weeks Active Diclofenac Sodium 75 mg TAKE 1 TABLET BY MOUTH TWICE DAILY for 90 days Active Cetirizine HCl 10 MG 1 tablet Orally Once a day Active Calcium + D3 Active Blood Glucose Test - tid In Vitro tid fo r 30 days 09/15/2024 Active Social History Tobacco Use: Social History Observation Description Date Details (start date - stop date) Former Smoker NA - NA Tobacco Use/Smoking Question Answer Notes Patient is a former smoker Vital Signs Weight 175.8 lbs 05/31/2025 Height 64.75 in 05/31/2025 Blood pressure systolic 120 mm Hg 05/31/20 25 Blood pressure diastolic 88 mm Hg 025 BMI 29.48 kg/m2 05/31/2025 Encounters Encounter Location Date Provider Diagnosis [facility] [address] [place] [address] 05/31/2025 Selvin Sandoval Hypertension I10 ; C OPD, mild J44.9 and Diabetes mellitus, type 2 E11.9 Assessments Encounter Date Diagnosis (ICD Code) Assessment Notes Treatment Notes Treatment Clinical Notes Section Notes 05/31/2025 Hypertension (ICD-10 - I10) stabel here - at at home 05/31/2025 COPD, mild (ICD-10 - J44.9) off cigarettes for years 05/31/2025 Diabetes mellitus, type 2 (ICD-10 - E11.9) too sweet - adding metformin - reviewed diet Plan Of Treatment Medication Medication Name Sig Start Date Stop Date Notes metFORMIN HCl 500 MG 1 tablet with a orly l Orally bid for 30 days 05/31/2025 Treatment Notes Assessment Notes Hypertension stabel here - at at home COPD, mild off cigarettes for y ears Diabetes mellitus, type 2 too sweet - ad ding metformin - reviewed diet Next Appt Details Provider Name:Selvin Sandoval, 10:45:00 AM, [address] [place], [address], Progress Notes * [place] DURAN LDOB:[birth year] (74 yo F)Acc No.[id number]:05/31/2025 Progress Note Patient: Ebonie WERNERhai Lainez Provider: George Sandoval ([facility])MD :1950 A ge:74 Y S ex:Female Date:05/31/2025 Address:[address] [place], [place] [id number] Check In:10:01 AM ESTCheck O ut:11:05 AM EST Subjective: * Chief Complaints: * 4 mon * HPI: G eneral: DM -sugars runnign 140's - creaping back up - not wlking as [facility] not on meds for DM diussed HTN - stable - reviewee diet. * ROS: E ENT: hearing changes d enies. v isual changes d enies.?non-healing mouth sores d enies. s wollen glands or neck lumps d enies. h oarseness d enies. s ore throat d enies. d ifficulty swallowing d enies. n ose bleeds d enies. n fang congestion d enies. e ar ache d enies. e ar discharge?denies. r inging in ears d enies. l ight sensitivity d enies. e ye pain d enies. b lurring d enies. e ye irritation d enies. d ouble vision d enies.?vision loss d enies. G eneral/Constitutional: Sweats: D enies. F atigue d enies. S leep problems d enies. A norexia d enies. M alaise d enies. W eight loss d enies.?Fatigue or Weakness d enies. F ever or Chills d enies. C ardiovascular: Shortness of Breath w/lying flat d enies. L ightheadedness/dizziness d enies. C hest tightness/ heavy pressure d enies. S welling of legs, ankles, or feet d enies. W aking up with shortness of breath d enies. C hest pain denies. P alpitations d enies. W eight gain d enies. R espiratory: Chronic or frequent cough d enies. C oughing up blood?denies. D ifficulty breathing d enies. P roductive cough d enies. S noring?denies. S hortness of breath that awakens from sleep (PND) d enies. C hest pain d enies. S putum production d enies. W heezing d enies. M usculoskeletal: Joint pain d enies. J oint Fluid d enies. B ack pain d enies. K nee pain d enies. N sajan pain d enies. J oint Stiffness d enies. M uscle cramps d enies. W eakness of muscles d enies. A rthritis d enies. M uscle aches d enies. P ain in shoulder(s) d enies. S wollen joints d enies. * Active Problem List I10 Hypertension Modified On:09/12/2023 Status:confirmed Z00.00 Well adult Modified On:03/19/2023 Status:confirmed K52.9 Gastroenteritis Modified On:03/19/2023 Status:confirmed E66.3 Over weight Modified On:03/19/2023 Status:confirmed J44.9 COPD, mild Modified On:01/20/2024 Status:confirmed K57.30 Sigmoid diverticulos is Modified On:03/19/2023 Status:confirmed R22.1 Mass of neck Modified On:03/19/2023 Status:confirmed D12.2 Polyp of ascending c olon Modified On:03/19/2023 Status:confirmed E11.9 Diabetes mellitus, t ype 2 Modified On:01/20/2024 Status:confirmed U07.1 COVID-19 virus infec tion Modified On:03/19/2023 Status:confirmed L50.0 Allergic urticaria Modified On:03/19/2023 Status:confirmed M65.4 Radial styloid tenos ynovitis [de Quervain] Modified On:03/24/2023 Status:confirmed 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 M other: , colon ca, diagnosed with Other malignant neoplasm of unspecified site, Diabetes mellitus without mention of complication, type II or unspecified type, not stated as uncontrolled, Unspecified essential hypertension, Unspecified heart disease. B srinivas(s): alive, throat cancer, diagnosed with Other malignant neoplasm of unspecified site. 1 brother(s) . . * Social History: T obacco Use: T obacco Use/Smoking P atient is a f ormer smoker * Medications: T akingBlood Glucose Test - Strip tid In Vitro tid Calcium + D3 Cetirizine HCl 10 MG Tablet 1 tablet Orally Once a day Diclofenac Sodium 75 mg Tablet Delayed Release TAKE 1 TABLET BY MOUTH TWICE DAILY Eylea(Aflibercept) 2 MG/0.05ML Solution 0.05 mL Intravitreal 10 weeks Glucose Lancets used to test blood glucose daily dx E11.9 Glucose Meter used to test blood sugar daily dx: E11.9 Glucose Test Strips used to test blood sugar daily DX E11.9 Lisinopril 40 mg Tablet TAKE 1 TABLET BY MOUTH DAILY One A Day Women 50 Plus(Multiple Vitamins-Minerals) - Tablet Chewable as directed Orally PreserVision AREDS 2(Multiple Vitamins-Minerals) - Capsule as directed Orally bid Syfovre(Pegcetacoplan (Ophthalmic)) 15 MG/0.1ML Solution as directed Intravitreal every 8 weeks Medication List reviewed and reconciled with the patientTaking Blood Glucose Test - Strip tid In Vitro tid Taking Calcium + D3 Taking Cetirizine HCl 10 MG Tablet 1 tablet Orally Once a day Taking Diclofenac Sodium 75 mg Tablet Delayed Release TAKE 1 TABLET BY MOUTH TWICE DAILY Taking Eylea(Aflibercept) 2 MG/0.05ML Solution 0.05 mL Intravitreal 10 weeks Taking Glucose Lancets used to test blood glucose daily dx E11.9 Taking Glucose Meter used to test blood sugar daily dx: E11.9 Taking Glucose Test Strips used to test blood sugar daily DX E11.9 Taking Lisinopril 40 mg Tablet TAKE 1 TABLET BY MOUTH DAILY Taking One A Day Women 50 Plus(Multiple Vitamins-Minerals) - Tablet Chewable as directed Orally Taking PreserVision AREDS 2(Multiple Vitamins-Minerals) - Capsule as directed Orally bid Taking Syfovre(Pegcetacoplan (Ophthalmic)) 15 MG/0.1ML Solution as directed Intravitreal every 8 weeks Medication List reviewed and reconciled with the patient * Allergies: C ontract Dye: hives - Allergyno[Allergies Verified] Objective: * Vitals: W t:175.8lbs, Ht: 64.75 in, BP:120/88mm Hg, BMI:29.48Index, Ht-cm: 164.47 cm, Wt- k.74 kg. * Examination: P hysical Exam: GENERAL: w ell developed, well nourished, in no acute distress. HEAD: n ormocephalic/atraumatic. EYES: p upils equal, round and reactive to light, conjunctivae and sclerae normal. EARS: n o deformity or lesion of external ear, canals and TM appear normal bilaterally, TM's intact, not inflamed with normal light reflex, hearing grossly normal to conversational speech. NOSE: n o deformity, discharge, inflammation, or lesions.? MOUTH: m ucous membranes moist, normal oropharynx and posterior pharynx without lesions or exudates, tongue normal, dentition normal. NECK: n sajan supple, no masses or palpable cervical nodes, trachea midline, thyroid without nodules, masses, tenderness, or enlargement. CHEST: n o chest wall deformity, no chest wall tenderness.? LUNGS: n ormal respiratory effort and clear to auscultation, no wheezes, rales, or rhonchi, good air exchange. CARDIO: r egular rate and rhythm, normal S1 and S2, nor murmur, rub, or gallop. PULSES: n ormal capillary refill. ABDOMEN: s oft, non-distended, non-tender, no masses. MUSCULOSKELETAL: n o deformity or scoliosis noted, normal range of motion, joints normal, no erythema, edema, effusion, or ecchymosis. EXTREMITY: n o clubbing, cyanosis, edema, or deformity with normal ROM in both upper and lower bilateral extremities. NEUROLOGIC: g rossly normal. SKIN: n o rashes, ulcerations, or suspicious lesions. LYMPH NODES: n o cervical adenopathy, nodes normal. MENTAL STATUS: a lert and oriented x3, normal mood and affect. Assessment: * Assessment: 1. H ypertension - I10 (Primary) 2 . C OPD, mild - J44.9 3 . D iabetes mellitus, type 2 - E11.9 Plan: * Treatment: 2. C OPD, mild Notes: off cigarettes for years 3. D iabetes mellitus, type 2 Notes: too sweet - adding metformin - reviewed diet * Procedure Codes: * Preventive Medicine: Screenings/Counseling: B FL ACTION PLAN Above Normal BMI Follow-up D ietary management education, guidance, and counseling * * Sign off status: Completed Visit Status: C HK (Check Out) true * Provider: George Sandoval ([facility])MD Date: 0 05/31/2025 Generated for Printi ng/Faxing/eTransmitting on: 0 07/06/2025 12:04 PM EDT History and Physical Notes * HPI (History of Present Illness) Category Sub-Category Detail Notes Category Not es General DM -sugars runnign 140's - creaping back up - not wlking as [facility] not on meds for DM diussed HTN - stable - reviewee diet Examination Category Sub-Category Detail Notes Category Not es Physical Exam GENERAL: well developed, well nourished, in no acute distress HEAD: normocephalic/atraum atic EYES: pupils equal, round and reactive to light, conjunctivae and sclerae normal EARS: no deformity or lesi on of external ear, canals and TM appear normal bilaterally, TM's intact, not inflamed with normal light reflex, hearing grossly normal to conversational speech NOSE: no deformity, discha rge, inflammation, or lesions MOUTH: mucous membranes [address], normal oropharynx and posterior pharynx without lesions or exudates, tongue normal, dentition normal NECK: neck supple, no mass es or palpable cervical nodes, trachea midline, thyroid without nodules, masses, tenderness, or enlargement CHEST: no chest wall deform ity, no chest wall tenderness LUNGS: normal respiratory e ffort and clear to auscultation, no wheezes, rales, or rhonchi, good air exchange CARDIO: regular rate and rhy thm, normal S1 and S2, nor murmur, rub, or gallop PULSES: normal capillary ref ill ABDOMEN: soft, non-distended, non-tender, no masses RECTAL: MUSCULOSKELETAL: no deformity or scol iosis noted, normal range of motion, joints normal, no erythema, edema, effusion, or ecchymosis EXTREMITY: no clubbing, cyanosi s, edema, or deformity with normal ROM in both upper and lower bilateral extremities NEUROLOGIC: grossly normal SKIN: no rashes, ulceratio ns, or suspicious lesions LYMPH NODES: no cervical adenopat hy, nodes normal MENTAL STATUS: alert and oriented x 3, normal mood and affect
--- OUTSIDE RECORDS SUMMARY | 2025-06-21 23:59 | XMS_ITS | Continuity of Care Document ---
Author Organization [facility] Address [address] [place] [address] [place] [address] Care Team Providers Care Architectural Drafting Instructor Name Role Phone Eddie Sandoval Primary Care Physician Encounter FT_ANNABELLA [id number] Date(s): 06/21/25 - 06/21/25 [facility] [address], [address], [place], [place] [address] Encounter Diagnosis Personal history of adenomatous and serrated colon polyps(Discharge Diagnosis) - 06/21/25 Family history of colon cancer in mother(Discharge Diagnosis) - 06/21/25 Discharge Disposition: Home (Routine DC) Attending Physician: Kade YOUNG MD Encounter Type: Clinic Allergies, Adverse Reactions, Alerts Substance Criticality Severity Reaction Reaction Severity Status Contrast Dye Unknown Active Immunizations Given and Recorded Vaccine Date Status Refusal Reason SARS-CoV-2 (COVID-19) Ad26 vaccine 10/11/21 Record ed Medications calcium-vitamin D 600 mg-200 intl units oral capsule 1 cap(s), Oral, BID, Refill(s) 0 Start Date: 05/31/20 Status: Ordered Repeat number: 1 cetirizine 10 mg Tab 10 mg = 1 tab(s), Oral, Daily, Refills(s) 0 Start Date: 05/31/20 Status: Ordered Repeat number: 1 diclofenac sodium 75 mg Oral EC Tab 75 mg = 1 tab(s), Oral, Daily, Refills(s) 0 Start Date: 06/21/25 Status: Ordered Repeat number: 1 Fish Oil 1200 mg oral capsule 1,200 mg = 1 cap(s), Oral, BID, Refills(s) 0 Start Date: 06/21/25 Status: Ordered Repeat number: 1 lisinopril 40 mg Tab 40 mg = 1 tab(s), Oral, Daily, Refills(s) 0 Start Date: 06/09/25 Status: Ordered Repeat number: 1 metformin 500 mg Tab 500 mg = 1 tab(s), Oral, BID, Refills(s) 0 Start Date: 06/09/25 Status: Ordered Repeat number: 1 One A Day Women 50 Plus See Instructions, Refill(s) 0, one po daily Start Date: 05/31/20 Status: Ordered Repeat number: 1 PreserVision AREDS 2 1 cap(s), Oral, Daily, Refill(s) 0 Start Date: 05/31/20 Status: Ordered Repeat number: 1 Problem List Condition Confirmation Course Effective Dates Status Health St atus Informant Chronic obstructive pulmonary disease Confirmed Active Macular degeneration Confirmed Active Family history of colon cancer in mother Confirmed Active Personal history of adenomatous and serrated colon polyps Confirmed Active HTN (hypertension) Confirmed Active Occult blood in stools Confirmed Active Overweight Confirmed Active BMI 29.0-29.9,adult Confirmed Active Positive colorectal cancer screening using Cologuard test Confirmed Active Tubular adenoma of colon Confirmed Active Type 2 diabetes mellitus Confirmed Active Procedures Procedure Date Related Diagnosis Body Site Status Colonoscopy 06/21/20 Completed Appendectomy 1 Completed Tonsillectomy Completed Vaginal hysterectomy 2 Co mpleted 1as 15 year old [id number] Social History Social History Type Response Smoking Status Former smoker, quit more than 30 days ago;Never; Type: Cigarettes; Tobacco use per day: 0.5; Started at age: 13.0; Stopped at age: 68; 1 entered on: 06/21/25 Sex Female Sex Representation Female (finding) 1quit 09/23/2019, smoked roughly 56 years Patient Care team information Care Team Personnel Name: Eddie Sandoval MD Position: FT Physician Member Role: Primary Care Physician Address: [address] [place] [address] Telecom: Care Team Related Persons Name: AZEEM HATCH Insurance Providers Guarantor name: DEVORAH Health Plan Information #: 1 Payer: NA Payer Identifier: [id number] Member Number: [id number] Group Number: [id number] Subscriber Identifier: [id number] Relationship to Subscriber: Self Coverage Type: MEDICARE Coverage Verification Date: 25 Telecom: NA Address: Health Plan Information #: 2 Payer: AYANNA Payer Identifier: [id number] Member Number: [id number] Group Number: [id number] Subscriber Identifier: [id number] Relationship to Subscriber: Self Coverage Type: PRIVATE HEALTH INSURANCE Coverage Verification Date: 25 Telecom: AYANNA Address: [place]
--- OUTSIDE RECORDS SUMMARY | 2025-07-06 12:05 | XMS_ITS | Patient Health Record ---
Author Organization [facility] in [place] Address [address] [place] [address] Care Team Providers Care Business Agent Name Role Phone Selvin Sandoval Primary Care Provider [phone] Allergies Allergen (clinical drug ingredient) Drug/Non Drug Allergy documented on EMR Reaction Allergy Type Onset Date Status Contract Dye (uncoded) hives Allergy Active Results Component Value Reference Range Notes GLYCOHEMOGLOBIN A1C Reviewed date:01/27/2025 08:55:35 PM Interpretation: Performing Lab: Notes/Report: [facility] , Glycohemoglobin A1C 6.4 4.5-6.2 % ADA RECOMMENDED LIMIT 4.0 - 6.0 ADA THERAPEUTIC TARGET < 7.0 ACTION SUGGESTED > 7.0 Estimated Average Glucose 137 Performing Lab: see note ML - [facility] LB IRON Reviewed date:01/27/2025 08:55:35 PM Interpretation: Performing Lab: Notes/Report: [facility] , Iron 72.0 50.0-170.0 ug/dL Performing Lab: see note ML - [facility] MM tomosynthesis screening B I Reviewed date:01/27/2025 08:55:35 PM Interpretation: Performing Lab: Notes/Report: Source Facility: [facility]-[address] [place] [address] [place] [address] Mammography Report Signed Patient: ALBANIA DURAN MR#: [id number] : 1950 Acct:[id number] Age/Sex: 74 / F ADM Date: 01/27/25 Loc: MAMMO Attending Dr: Eddie Sandoval M.D. Ordering Physician: Eddie Sandoval M.D. Results: Date of Service: 01/27/25 Follow Up: Procedure(s): MM tomosynthesis screening BI Accession Number(s): [id number] cc: Eddie Sandoval M.D. Patient Name: ALBANIA DURAN MR#: [id number] : 1950 Exam Date: 01/27/2025 Ordering Doctor: DR Eddie Sandoval . RADIOLOGY REPORT PROCEDURE: MM TOMOSYNTHESIS SCREENING BI COMPARISON: MM TOMOSYNTHESIS SCREENING BI, 01/27/2024. MG MAMM SCREEN 3D VALERIANO CAD, 10/10/2022. MG MAMM SCREEN 3D VALERIANO CAD, 06/01/2021. MG MAMM VALERIANO SCRN W CAD DIG, 06/02/2015. INDICATIONS: Screening Calculator Name NCI Breast Cancer Risk Assessment Tool 5 Year Breast Cancer Risk 2.40% Lifetime Breast Cancer Risk 5.10% Personal Breast Cancer No Personal Ovarian Cancer No Treatments None Family Cancers Father with hodgkins cancer at age 45; Brother with throat cancer at age 57. LOCATION: The [facility] BREAST COMPOSITION: The breasts are heterogeneously dense,which may obscure small masses. FINDINGS: DIAGNOSTIC CATEGORY 1--NEGATIVE. LEFT BREAST: No significant suspicious finding. RIGHT BREAST: No significant suspicious finding. RECOMMENDATIONS: ROUTINE MAMMOGRAM AND CLINICAL EVALUATION IN 12 MONTHS. PLEASE NOTE: A NORMAL MAMMOGRAM DOES NOT EXCLUDE THE POSSIBILITY OF BREAST CANCER. A CLINICALLY SUSPICIOUS PALPABLE LUMP SHOULD BE BIOPSIED. Dictated by: Mook Wood DO on 01/27/2025 at 16:05 Approved by: Mook Wood DO on 01/27/2025 at 16:06 Dictated By: Mook Wood M.D. Signed By: 01/27/25 1607 DD/ 1606 TD/TT: Pickle Pumper: [place] [address] Mammography Report Signed Patient: DASIA DURAN MR#: [id number] : 1950 Acct:[id number] Age/Sex: 74 / F ADM Date: 01/27/25 Loc: MAMMO Attending Dr: Ran Sadnoval M.D. Ordering Physician: Eddie Sandoval M.D. Results: Date of Service: 01/27/25 Follow Up: Procedure(s): MM tomosynthesis screening BI Accession Number(s): [id number] cc: Eddie Sandoval M.D. Patient Name: ALBANIA DURAN MR#: [id number] : 1950 Exam Date: 01/27/2025 Ordering Doctor: DR Eddie Sandoval . RADIOLOGY REPORT PROCEDURE: MM TOMOSYNTHESIS SCREENING BI COMPARISON: MM TOMOSYNTHESIS SCREENING BI, 01/27/2024. MG MAMM SCREEN 3D VALERIANO CAD, 10/10/2022. MG MAMM SCREEN 3D VALERIANO CAD, 06/01/2021. MG MAMM VALERIANO SCRN W CAD DIG, 06/02/2015. INDICATIONS: Screening Calculator Name NCI Breast Cancer Risk Assessment Tool 5 Year Breast Cancer Risk 2.40% Lifetime Breast Canc er Risk 5.10% Personal Breast Canc er No Personal Ovarian Can cer No Treatments None Family Cancers Fathe r with hodgkins cancer at age 45; Brother with throat cancer at age 57. LOCATION: The [facility] BREAST COMPOSITION: The breasts are heterogeneously dense,which may obscure small masses. FINDINGS: DIAGNOSTIC CATEGORY 1--NEGATIVE. LEFT BREAST: No significant suspicious finding. RIGHT BREAST: No significant suspicious finding. RECOMMENDATIONS: ROUTINE MAMMOGRAM AN D CLINICAL EVALUATION IN 12 MONTHS. PLEASE NOTE: A GISELA L MAMMOGRAM DOES NOT EXCLUDE THE POSSIBILITY OF BREAST CANCER. A CLINICALLY SUSPICIOUS PALPABLE LUMP SHOULD BE BIOPSIED. Dictated by: Mook Wood DO on 01/27/2025 at 16:05 Approved by: Mook Wood DO on 01/27/2025 at 16:06 Dictated By: Mook Wood M.D. Signed By: 01/27/25 1607 DD/ 1606 TD/TT: Pickle Pumper: TSH Reviewed date:01/27/2025 08:55:35 PM Interpretation: Performing Lab: Notes/Report: [facility] , Thyroid Stimulating Hormone 0.457 0.358-3.740 uIU/mL Performing Lab: see note ML - [facility] LB T4 Reviewed date:01/27/2025 08:55:35 PM Interpretation: Performing Lab: Notes/Report: [facility] , T4 Thyroxine 11.40 4.80-13.90 ug/dL Performing Lab: see note ML - [facility] LB PROF 14(COMP METB) Reviewed date:01/27/2025 08:55:35 PM Interpretation: Performing Lab: Notes/Report: [facility] , Sodium 141 136-145 mmol/L Potassium 4.3 3.5-5.1 mmol/L Chloride 103 98-107 mmol/L Carbon Dioxide 28.6 21.0-32.0 mmol/L Anion Gap 13.7 Glucose 104 74-106 mg/dL Blood Urea Nitrogen 16.0 7.0-18.0 mg/dL Creatinine 0.92 0.55-1.02 mg/dL Estimated GFR ( Esperanza >60 >=60 mL/min/1.73m 2 Estimated GFR (Non- Ramya 60 >=60 mL/min/1.73m 2 BUN Creatinine Ratio 17.4 Calcium 9.6 8.5-10.1 mg/dL Bilirubin Total 0.4 0.2-1.0 mg/dL Aspartate Amino Transferase 22 15-37 U/L Alanine Aminotransferase 31 14-59 U/L Alkaline Phosphatase 87 46-116 U/L Total Protein 7.2 6.4-8.2 g/dL Albumin Level 3.7 3.4-5.0 g/dL Globulin 3.5 Albumin Globulin Ratio 1.1 Performing Lab: see note ML - [facility] LB LIPID PROFILE Reviewed date:01/27/2025 08:55:35 PM Interpretation: Performing Lab: Notes/Report: [facility] , Triglycerides 142 <=150 mg/dL Cholesterol 179 <=200 mg/dL HDL Cholesterol 63 40-60 mg/dL > or =60 mg/dl - LOW CARDIOVASCULAR RISK <40 mg/dl - HIGH CARDIOVASCULAR RISK LDL Cholesterol Calculated 88.0 <100 mg/dl OPTIMAL 100-129 mg/dl NEAR OR ABOVE OPTIMAL 130-159 mg/dl BORDERLINE HIGH 160-189 mg/dl HIGH >190 mg/dl VERY HIGH VLDL CHOLESTEROL 28.4 Chol HDL Ratio 2.8 3.3 - 4.4 LOW RISK 4.4 - 7.1 AVERAGE RISK 7.1 - 11.0 MODERATE RISK >11.0 HIGH RISK Performing Lab: see note ML - [facility] LB FREE T3 Reviewed date:01/27/2025 08:55:35 PM Interpretation: Performing Lab: Notes/Report: [facility] , Free T3 2.86 2.18-3.98 pg/mL Performing Lab: see note ML - [facility] LB CBC AUTO DIFF Reviewed date:01/27/2025 08:55:35 PM Interpretation: Performing Lab: Notes/Report: [facility] , White Blood Count 5.9 4.0-11.0 10 3/uL Red Blood Count 4.86 4.20-5.40 10 6/uL Hemoglobin 13.9 12.0-16.0 g/dL Hematocrit 44.1 36.0-48.0 % Mean Corpuscular Volume 90.7 81.0-99.0 fL Mean Corpuscular Hemoglobin 28.6 26.7-34.0 pg Mean Corpuscular HGB Conc 31.5 29.9-35.2 g/dL Red Cell Distribution Width 14.2 11.0-15.0 % Platelet Count 269 150-450 10 3/uL Mean Platelet Volume 10.1 9.5-13.5 fL Neutrophils Percent Auto 47.0 43.0-75.0 % Lymphocytes Percent Auto 42.7 20.5-60.0 % Monocytes Percent Auto 7.6 1.7-12.0 % Eosinophils Percent Auto 1.5 0.9-7.0 % Basophils Percent Auto 1.0 0.2-2.0 % Immature Granulocytes Pct Auto 0.2 0.0-0.5 % Neutrophils Absolute Auto 2.8 1.4-6.5 10 3/uL Lymphocytes Absolute Auto 2.5 1.2-3.8 10 3/uL Monocytes Absolute Auto 0.5 0.3-0.8 10 3/uL Eosinophils Absolute Auto 0.1 0.0-0.7 10 3/uL Basophils Absolute Auto 0.1 0.0-0.1 10 3/uL Immature Granulocytes Abs Auto 0.01 0.00-0.03 10 3/uL Performing Lab: see note ML - [facility] LB Reason For Referral No Information Medications Medication SIG (Take, Route, Frequency, Duration) Notes Start Date End Date Status Cetirizine HCl 10 MG 1 tablet Orally Once a day Active metFORMIN HCl 500 MG 1 tablet [...] MOUTH TWICE DAILY for 90 days Active PreserVision AREDS 2 - as directed Orally bid Active One A Day Women 50 Plus - as directed Orally Active Lisinopril 40 mg TAKE 1 TABLET BY ONEYDA TH DAILY for 90 days Active Glucose Test Strips used to test blood s ugar daily DX E11.9 for 90 days 01/31/2025 Activ e Calcium + D3 Active Blood Glucose Test - tid In Vitro tid fo r 30 days 09/15/2024 Active Syfovre 15 MG/0.1ML as directed Intravit real every 8 weeks Active Social History Tobacco Use: Social History Observation Description Date Details (start date - stop date) Former Smoker NA - NA Tobacco Use/Smoking Question Answer Notes Patient is a former smoker Alcohol Screen (Audit-C) Question Answer Notes Did you have a drink contain ing alcohol in the past year? Yes How often did you have 6 or more drinks on one occasion in the past year? Never (0 point) How many drinks did you have on a typical day when you were drinking in the past year? 1 or 2 drinks (0 point) How often did you have a dri nk containing alcohol in the past year? Never (0 point) Points 0 Interpretation Negative AUDIT-C (Standard) Question Answer Notes Did you have a drink containing alcohol in the p ast year? 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) Active confirmed Problem 24221267 Radial styloid tenosynovitis [de Quervain] (M65.4) Active confirmed Problem Age-related macular degeneration (disorder) (998769967) Macular degeneration (H35.30) Active confirmed Problem Hypertension (87322235) Hypertension (I10) Active confirmed Problem Arthritis (3455864) Arthritis (M19.90) Active confirmed Problem Well adult (654732281) Well adult (Z00.00) Active confirmed Problem Gastroenteritis (31868646) Gastroenteritis (K52.9) Active confirmed Problem Overweight (821840637) Over weight (E66.3) Active confirmed Problem Chronic obstructive pulmonary disease (62422849) COPD, mild (J44.9) Active confirmed Problem Diverticular disease of colon (863291119) Sigmoid diverticulosis (K57.30) Active confirmed Problem Mass of neck (786237294) Mass of neck (R22.1) Active confirmed Problem Polyp of ascending colon (406070928) Polyp of ascending colon (D12.2) Active confirmed Problem Diabetes mellitus type 2 (88023989) Diabetes mellitus, type 2 (E11.9) Active confirmed Problem 881995510 Exudative age-related macular degeneration, bilateral, 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) Active confirmed Problem Disease caused by Severe acute respiratory syndrome coronavirus 2 (disorder) (991417969) COVID-19 virus infection (U07.1) Active confirmed Vital Signs Blood pressure diastolic 88 mm Hg 05/31/2025 Height 64.75 in 05/31/2025 Blood pressure systolic 120 mm Hg 05/31/2025 Weight 175.8 lbs 05/31/2025 BMI 29.48 kg/m2 05/31/2025 Encounters Encounter Location Date Provider Diagnosis [facility] [address] [facility] [place] [address] 11/05/2024 Selvin Chasey Radial styloid tenosynovitis [de Quervain] M65.4 [facility] [address] [place] [address] 01/27/2025 Selvin Hoy [facility] [address] [place] [facility] [place] [address] 01/31/2025 Selvin Chasey [place] [address] [place] [address] 04/13/2025 Selvin Sandoval Hypertension I10 and Radial styloid tenosynovitis [de Quervain] M65.4 [facility] [address] [place] [address] 09/15/2024 Selvin Sandoval Diabetes mellitus, t ype 2 E11.9 ; Hypertension I10 ; COPD, mild J44.9 and Macular degeneration H35.[address] [address] 01/20/2025 Selvin Hoy Hypertension I10 ; Diabetes mellitus, type 2 E11.9 ; Macular degeneration H35.30 and Arthritis M19.[address] [address] 05/31/2025 Selvin Chasey Hypertension I10 ; C OPD, mild J44.9 and Diabetes mellitus, type 2 E11.9 Assessments Encounter Date Diagnosis (ICD Code) Assessment Notes Treatment Notes Treatment Clinical Notes Section Notes 09/15/2024 Diabetes mellitus, type 2 (ICD-10 - E11.9) 09/15/2024 Hypertension (ICD-10 - I10) 01/20/2025 Hypertension (ICD-10 - I10) good control 01/20/2025 Diabetes mellitus, type 2 (ICD-10 - E11.9) god contrl 05/31/2025 Hypertension (ICD-10 - I10) stabel here - at at home 05/31/2025 COPD, mild (ICD-10 - J44.9) off cigarettes for years 11/05/2024 Radial styloid tenosynovitis [de Quervain] (ICD-10 - M65.4) 04/13/2025 Hypertension (ICD-10 - I10) 04/13/2025 Radial styloid tenosynovitis [de Quervain] (ICD-10 - M65.4) 05/31/2025 Diabetes mellitus, type 2 (ICD-10 - E11.9) too sweet - adding metformin - reviewed diet 01/20/2025 Macular degeneration (ICD-10 - H35.30) 09/15/2024 COPD, mild (ICD-10 - J44.9) 09/15/2024 Macular degeneration (ICD-10 - H35.30) 01/20/2025 Arthritis (ICD-10 - M19.90) Plan Of Treatment Pending Test Test Name Order Date CMP (COMPLETE METABOLIC PANEL) HEMOGLOBIN A1C (GLYCO) 01/20/2025 HEMOGLOBIN A1C (GLYCO) 01/20/2024 IRON, TOTAL 01/20/2025 IRON, TOTAL 01/20/2024 LIPID PANEL (CHOL/TRIG/HDL/LDL) 01/20/20 24 LIPID PANEL (CHOL/TRIG/HDL/LDL) 01/20/20 25 CBC WITH DIFF 01/20/2025 CBC WITH DIFF 01/20/2024 VITAMIN D, 25 LEVEL (TOTAL) 01/20/2024 MAMM Mammograms CAD 01/20/2024 STOOL OCCULT BLOOD 01/20/2024 THYROID PANEL (T4/TSH/FREE T3) 4 THYROID PANEL (T4/TSH/FREE T3) 5 CMP (COMP MET GARCIA) w/eGFR CKD-EPI 2024 Next Appt Details Provider Name:Selvin Sandoval, 10:45:00 AM, [address] [place], [address], Insurance Providers Payer Name Payer Address Payer Phone Subscriber Number Group Number Insured Name Patient Relationship to Insured Coverage Start Date Coverage End Date [place] [place] [address] [id number] [place]ia Duran Self - patient is the insured 4 [facility] [address] [place] [address] [id number] Albania Duran Self - patient is the insured 9 Medications Administered Medication Instructions Date of Administration Dosage Notes Kenalog-40 03/24/2023 80 mg 80 Ketorolac Tromethamine 03/24/2023 60 mg 60 Medical (General) History Medical History History ICD Code Over weight E66.3 COVID-19 virus infection U07.1 Well adult Z00.00 Allergic urticaria L50.0 Polyp of ascending colon D12.2 Sigmoid diverticulosis K57.30 Hypertension I10 Diabetes mellitus, type 2 E11.9 COPD, mild J44.9 Surgical History Surgery Date(Month/Year) Tonsillectomy Appendectomy Hysterectomy
--- OUTSIDE RECORDS SUMMARY | 2025-07-06 12:11 | XMS_ITS | CCD ---
Author Organization [facility] CliniSynh Care Team Providers Care Municipal Services Manager Name Role Phone HAN ., DR HERRMANN Consulting Unavailable HOY ., [...] HERRMANN Primary Care Unavailable HOY ., DR HERRAMNN Attending Unavailable SalvatoreyMontez Primary Care Physician Kade YOUNG Attending Unavailable Al Shweiki, Bharat Attending Unavailable Al Shweiki, Bharat Referring Unavailable Al Shweiki, Bharat Attending Unavailable Al Shweiki, Bharat Referring Unavailable Al Shweiki, Bharat Attending Unavailable Al Shweiki, Bharat Referring Unavailable Al Shweiki, Bharat Attending Unavailable Al Shweiki, Bharat Referring Unavailable Al Shweiki, Bharat Attending Unavailable Al Shweiki, Bharat Referring Unavailable Al Shweiki, Bharat Attending Unavailable Al Shweiki, Bharat Referring Unavailable Bigg Johnston Jr Attending Unavailable Preston Jr, Bigg T Referring Unavailable Al Shweiki MD, Bharat Unavailable Unavailabl e Allergies Allergy Classification Reported Allergen(s) Allergy Type Date of Onset Reaction(s) Facility (2 sources) Iodine (And Iodine Containting Drugs) Drug allergy (disorder) [facility] Repository (1 source) Contrast media; Translations: [Contrast Dye] Propensity to adverse reactions (disorder) [facility] Repository (1 source) Contrast media; Translations: [DYE] drug allergy 9 hives CVP Physicians Medications Current Medications Medication Drug Class(es) Dates Sig (Normalized) Sig (Original) Ascorbic Acid / Beta Carotene / cuprous oxide / Vitamin E / Zinc Oxide (1 source) Vitamin C take 1 capsule by mouth twice daily PreserVision AREDS-2 250 mg-200 unit-40 mg-1 mg capsule take 1 capsule by oral route 2 times every day - Active calcium carbonate 1500 mg oral tablet (1 source) Start: 0 calcium carbonate 600 MG / ergocalciferol 200 UNT Oral Capsule (1 source) Provitamin D2 Compound Start: 0 take 1 capsule by mouth twice daily calcium-vitamin D 600 mg-200 intl units oral capsule 1 cap(s), Oral, BID, Refill(s) 0 Start Date: 05/31/20 Status: Ordered Repeat number: 1 carboxymethylcellulose sodium 10 mg/ml ophthalmic solution (1 source) Artificial Tears (carboxymethylce llulose) 1 % eye drops - Active cetirizine hydrochloride 10 mg oral tablet (2 sources) Histamine-1 Receptor Antagonist Start: 0 take 1 tablet by mouth once daily cetirizine 10 mg Tab 10 mg = 1 tab(s), Oral, Daily, Refills(s) 0 Start Date: 05/31/20 Status: Ordered Repeat number: 1 diclofenac sodium 75 mg delayed release oral tablet (2 sources) Nonsteroidal Anti-inflammatory Drug Start: 5 take 1 tablet by mouth once daily diclofenac sodium 75 mg Oral EC Tab 75 mg = 1 tab(s), Oral, Daily, Refills(s) 0 Start Date: 06/21/25 Status: Ordered Repeat number: 1 take 1 tablet by skinny th every twelve hours diclofenac sodium 75 mg tablet,delayed release take 1 tablet by oral route 2 times every day 75 MG - Active Fish Oils (2 sources) Start: 06-21-2025 take 1 capsule by [facility] twice daily Fish Oil 1200 mg oral capsule 1,200 mg = 1 cap(s), Oral, BID, Refills(s) 0 Start Date: 06/21/25 Status: Ordered Repeat number: 1 Fish Oil 1,600 m g-500 mg-800 mg/5 mL oral liquid - Active 30 actuat fluticasone furoate 0.1 mg/actuat / vilanterol 0.025 mg/actuat dry powder inhaler (1 source) Corticosteroid, beta2-Adrenergic Agonist Start: 11-01-2019 take 1 puff(s) by inhalation once daily Breo Ellipta 100 mcg-25 mcg/dose powder for inhalation inhale 1 puff by inhalation route every day at the same time each day 1.00 puff - Active lisinopril 40 mg oral tablet (2 sources) Angiotensin Converting Enzyme Inhibitor Start: 06-09-2025 take 1 tablet by mouth once daily lisinopril 40 mg Tab 40 mg = 1 tab(s), Oral, Daily, Refills(s) 0 Start Date: 06/09/25 Status: Ordered Repeat number: 1 metFORMIN hydrochloride 500 mg oral tablet (2 sources) Biguanide Start: 06-09-2025 take 1 tablet by mouth twice daily metformin 500 mg Tab 500 mg = 1 tab(s), Oral, BID, Refills(s) 0 Start Date: 06/09/25 Status: Ordered Repeat number: 1 Multivitamin preparation (1 source) take 1 tablet by mouth once daily at mealtime multivitamin tablet take 1 tablet by oral route every day with food - Active One A Day Women 50 Plus (1 source) Start: 05-31-2020 One A Day Women 50 Plus See Instructions, Refill(s) 0, one po daily Start Date: 05/31/20 Status: Ordered Repeat number: 1 PreserVision AREDS 2 (1 source) Start: 05-31-2020 take 1 capsule by mouth once daily PreserVision AREDS 2 1 cap(s), Oral, Daily, Refill(s) 0 Start Date: 05/31/20 Status: Ordered Repeat number: 1 Problems Active Problems Problem Classification Problem Date Documented Da te Episodic/Chronic Cataract (20 sources) Combined forms of age-related cataract, bilateral; Translations: [Bilateral senile combined form cataracts of eyes] Onset: 07-27-2024 Chronic Chronic obstructive pulmonary disease and bronchiectasis (1 source) Chronic obstructive lung disease 06-09-2025 Chronic Congestive heart failure; nonhypertensive (1 source) Heart failure, unspecified; Translations: [HEART FAILURE UNSPECIFIED] Onset: 01-19-2023 Chronic Diabetes mellitus without complication (1 source) Type 2 diabetes mellitus 06-09-2025 Chronic Diabetes mellitus without complication (1 source) Other abnormal glucose; Translations: [OTHER ABNORMAL GLUCOSE] Onset: 01-19-2023 Episodic Disorders of lipid metabolism (5 sources) Hyperlipidemia, unspecified; Translations: [HYPERLIPIDEMIA UNSPECIFIED] Onset: 01-14-2023 Chronic Essential hypertension (10 sources) Hypertensive disorder; Translations: [Essential (primary) hypertension] Onset: 10-12-2024 06-01-2020 Chronic Malaise and fatigue (1 source) Other fatigue; Translations: [OTHER FATIGUE] Onset: 01-17-2023 Episodic Menopausal disorders (4 sources) Other primary ovarian failure; Translations: [OTHER PRIMARY OVARIAN FAILURE] Onset: 10-10-2022 Chronic Nutritional deficiencies (1 source) Vitamin D deficiency, unspecified; Translations: [VITAMIN D DEFICIENCY UNSPECIFIED] Onset: 01-17-2023 Chronic Other and unspecified benign neoplasm (2 sources) History of polyp of colon; Translations: [Personal history of adenomatous and serrated colon polyps] Onset: 06-21-2025 Episodic Other and unspecified benign neoplasm (1 source) Tubular adenoma of colon 07-06-2020 Episodic Other eye disorders (7 sources) Vitreous degeneration, bilateral; Translations: [PVD (posterior vitreous detachment), both eyes] Onset: 07-27-2024 Chronic Other eye disorders (7 sources) Vitreous degeneration, right eye Chronic Other eye disorders (3 sources) Dry eye syndrome of bilateral lacrimal glands; Translations: [Dry eyes, bilateral] Onset: 07-27-2024 Episodic Other gastrointestinal disorders (1 source) Occult blood in stools 06-01-2020 Episodic Other nutritional; endocrine; and metabolic disorders (1 source) Overweight 06-21-2025 Episodic Other nutritional; endocrine; and metabolic disorders (1 source) Overweight in adulthood with body mass index of 25 or more but less than 30 06-21-2025 Episodic Other screening for suspected conditions (not mental disorders or infectious disease) (7 sources) Encounter for screening for malignant neoplasm of rectum; Translations: [Encounter for screening mammogram for malignant neoplasm of breast] Onset: 10-14-2022 Episodic Residual codes; unclassified (1 source) Family history of malignant neoplasm of digestive organ; Translations: [Family history of malignant neoplasm of digestive organs] Onset: 06-21-2025 Episodic Residual codes; unclassified (1 source) Family history of cancer of colon 06-21-2025 Episodic Retinal detachments; defects; vascular occlusion; and retinopathy (20 sources) Degenerative disorder of macula ; Translations: [Nonexudative age-related macular degeneration, bilateral, 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] Onset: 04-05-2019 Resolved: 01-01-2023 05-31-2020 Chronic Thyroid disorders (1 source) Nontoxic single thyroid nodule; Translations: [NONTOXIC SINGLE THYROID NODULE] Onset: 05-16-2022 Chronic Unclassified (3 sources) CONTACT W/AND (SUSP) EXPOS COVID-19; Translations: [CONTACT W/AND (SUSP) EXPOS COVID-19] Onset: 10-07-2022 Unclassified (1 source) COUGH, UNSPECIFIED; Translations: [COUGH, UNSPECIFIED] Onset: 10-07-2022 Unclassified (9 sources) macular degeneration followup (chief complaint) Onset: 09-13-2019 Resolved: 04-16-2023 Unclassified (5 sources) macular degeneration (chief complaint) stable vision (chief complaint) Onset: 06-21-2019 Resolved: 09-05-2020 Unclassified (3 sources) Injection Only of Eylea for AMD (chief complaint) Onset: 03-20-2020 Resolved: 07-11-2020 Unclassified (1 source) macular degeneration (chief complaint) floater (chief complaint) Onset: 01-10-2020 Unclassified (1 source) macular degeneration (chief complaint) grittiness in eyes (chief complaint) Onset: 03-29-2019 Unclassified (1 source) Macular degeneration (chief complaint) decrease in vision (chief complaint) Onset: 02-22-2019 Past or Other Problems Problem Classification Problem Date Documented Date Episodic/Chronic Other skin disorders (4 sources) Localized swelling, [...] [CONTACT W/AND (SUSP) EXPOS COVID-19] Onset: 10-04-2022 Unclassified (2 sources) Non Exudative ARMD (chief complaint) Onset: 05-06-2024 Resolved: 06-21-2025 Unclassified (18 sources) AMD (chief complaint) Onset: 12-20-2020 Resolved: 03-29-2025 Unclassified (10 sources) Exudative ARMD (chief complaint) Onset: 06-19-2022 Resolved: 10-12-2024 Unclassified (1 source) IO- Eylea OS for AMD (chief complaint) Onset: 03-20-2022 Unclassified (1 source) macular degeneration (chief complaint) near vision fluctuates (chief complaint) Onset: 03-13-2022 Unclassified (3 sources) AMD (chief complaint) stable vision (chief complaint) Onset: 02-21-2020 Resolved: 12-12-2021 Unclassified (1 source) 3 mo INJ EYL due to exdtve AMD w/ actv chrdl neovas (chief complaint) Onset: 03-21-2021 Unclassified (1 source) AMD (chief complaint) vision fluctuates (chief complaint) Onset: 03-07-2021 Unclassified (1 source) 2 week IO EYL INJ for AMD (chief complaint) Onset: 09-19-2020 Unclassified (1 source) macular degeneration (chief complaint) denies vision changes (chief complaint) Onset: 03-01-2019 Results Test Name Value Interpretation Reference Range Facility Ambulatory Visit Summaryon 0 06-21-2025 Ambulatory Visit Summary Ambulatory Visit Summary [place] Fatou :1950 Visit Date:06/21/2025 Ambulatory Visit Instructions Your Diagnosis Personal history of adenomatous and serrated colon polyps Family history of colon cancer in mother Your Care Team Attending Physician - HANNAH TELLEZ, Kade Vora Primary Care Physician - Montez Sandoval MD This Is Your Medications List Contact prescribing physician if questions or concerns calcium-vitamin D (calcium-vitamin D 600 mg-200 intl units oral capsule) cetirizine (cetirizine 10 mg Tab) diclofenac (diclofenac sodium 75 mg Oral EC Tab) lisinopril (lisinopril 40 mg Tab) metformin (metformin 500 mg Tab) multivitamin with minerals (One A Day Women 50 Plus) multivitamin with minerals (PreserVision AREDS 2) omega-3 polyunsaturated fatty acids (Fish Oil 1200 mg oral capsule) Procedures Performed Colonoscopy (06/21/2020), Appendectomy, Tonsillectomy, Vaginal hysterectomy. Discharge Vitals Heart Rate (Peripheral) 72 Respiratory Rate 16 Blood Pressure 110/62 Height 164.4 cm Height 65 in Weight 79.8 kg Weight 175.929 lb BMI 29.53 Medications What How Much When Instructions Unchanged calcium-vitamin D (calcium-vitamin D 600 mg-200 intl units oral capsule) 1 Capsules By Mouth 2 times a day Contact prescribing physician if questions or concerns Unchanged cetirizine (cetirizine 10 mg Tab) 1 Tablets By Mouth Every day Contact prescribing physician if questions or concerns Unchanged diclofenac (diclofenac sodium 75 mg Oral EC Tab) 1 Tablets By Mouth Every day Contact prescribing physician if questions or concerns Unchanged lisinopril (lisinopril 40 mg Tab) 1 Tablets By Mouth Every day Contact prescribing physician if questions or concerns Unchanged metformin (metformin 500 mg Tab) 1 Tablets By Mouth 2 times a day Contact prescribing physician if questions or concerns Unchanged multivitamin with minerals (One A Day Women 50 Plus) See instructions one po daily Contact prescribing physician if questions or concerns Unchanged multivitamin with minerals (PreserVision AREDS 2) 1 Capsules By Mouth Every day Contact prescribing physician if questions or concerns Unchanged omega-3 polyunsaturated fatty acids (Fish Oil 1200 mg oral capsule) 1 Capsules By Mouth 2 times a day Contact prescribing physician if questions or concerns Allergies Contrast Dye (Unknown) Problems Ongoing - Any problem that you are currently receiving treatment for. BMI 29.0-29.9,adult Chronic obstructive pulmonary disease Family history of colon cancer in mother HTN (hypertension) Macular degeneration Occult blood in stools Overweight Personal history of adenomatous and serrated colon polyps Positive colorectal cancer screening using Cologuard test Tubular adenoma of colon Type 2 diabetes mellitus Patient Survey You may receive a survey via text or e-mail asking about your office visit. Please share your experience with us by completing your survey. We appreciate your feedback and thank you for choosing us for your care. Patient Portal You may access all of your results and other medical record information on our secure patient portal. If you are not signed up for this yet, please contact Health Information Management at [phone] to get signed up today. Language Information Language assistance services are available as needed. Normal [facility] Result Letter Officeon 05-25 Result Letter Office Result Letter Offic e May 25, 2025 [place] DURAN [address] [place] [address] : 1950 Dear [place], Our records show you are due to repeat a colonoscopy due to polyp found during colonoscopy completed in 2019. Please call our office to schedule consultation. Sincerely, [facility] General Surgery [phone] Normal [facility] OCC BLD IMMUNO SCREENon 12-26 OCCULT BLOOD Negative Normal NEGATIVE [facility] Comment on above: Performed By: #### O BSCRN #### [facility] [address] [place] [address] Dr. Pascual Pittman BNPon 01-14-2023 Natriuretic peptide B (Bld) [Mass/Vol] 44.0 pg/mL Normal <=900.0 [facility] Comment on above: Performed By: #### F T3, BNP, LIPID, TSH, T4, CMP ####[facility] [id number] [place], [place] [address]SgDr. Pascual Pittman CBC AUTO DIFFon 01-14-2023 BASO # 0.0 103/ul Normal 0.0-0.1 [facility] Comment on above: Performed By: #### C BC #### [facility] [address] [address] [address] Pascual Pittman Basophils/100 WBC (Bld) 0.6 % Normal 0.2-2.0 [facility] Comment on above: Performed By: #### C BC #### [facility] [address] [place] [address] Dr. Pascual Pittman EO # 0.1 103/ul Normal 0.0-0.7 [facility] Comment on above: Performed By: #### C BC #### [facility] [address] [place] [address] Dr. Pascual Pittman Eosinophils/100 WBC (Bld) 1.1 % Normal 0.9-7.0 [facility] Comment on above: Performed By: #### C BC #### [facility] [address] [place] [address] Dr. Pascual Pittman Erythrocyte distribution width (RBC) [Ratio] 14.8 % Normal 11.0-15.0 [facility] Comment on above: Performed By: #### C BC #### [facility] [address] [place] [address] Dr. Pascual Pittman Hematocrit (Bld) [Volume fraction] 43.4 % Normal 36.0-48.0 [facility] Comment on above: Performed By: #### C BC #### [facility] [address] [place] [address] Dr. Pascual Pittman Hemoglobin (Bld) [Mass/Vol] 13.8 g/dL Normal 12.0-16.0 [facility] Comment on above: Performed By: #### C BC #### [facility] [address] [place] [address] Dr. Pascual Pittman IG # 0.02 10e3/ul Normal 0.00-0.03 [facility] Comment on above: Performed By: #### C BC #### [facility] [address] [place] [address] Dr. Pascual Pittman IG % 0.3 % Normal 0.0-0.5 [facility] Comment on above: Performed By: #### C BC #### [facility] [address] [place] [address] Dr. Pascual Pittman LYMPH # 2.1 103/ul Normal 1.2-3.8 [facility] Comment on above: Performed By: #### C BC #### [facility] [address] [place] [address] Dr. Pascual Pittman Lymphocytes/100 WBC (Bld) 32.3 % Normal 20.5-60.0 [facility] Comment on above: Performed By: #### C BC #### [facility] [address] [place] [address] Dr. Pascual Pittman MANUAL DIFF REQ NO Normal [facility] Comment on above: Performed By: #### C BC #### [facility] [address] [place] [address] Dr. Pascual Pittman MCH (RBC) [Entitic mass] 28.0 pg Normal 26.7-34.0 [facility] Comment on above: Performed By: #### C BC #### [facility] [address] [place] [address] Dr. Pascual Pittman MCHC (RBC) [Mass/Vol] 31.8 g/dL Normal 29.9-35.2 [facility] Comment on above: Performed By: #### C BC #### [facility] [address] [place] [address] Dr. Pascual Pittman MCV (RBC) [Entitic vol] 88.0 fL Normal 81.0-99.0 [facility] Comment on above: Performed By: #### C BC #### [facility] [address] [place] [address] Dr. Pascual Pittman MONO # 0.5 103/ul Normal 0.3-0.8 [facility] Comment on above: Performed By: #### C BC #### [facility] [address] [place] [address] Dr. Pascual Pittman Monocytes/100 WBC (Bld) 7.0 % Normal 1.7-12.0 [facility] Comment on above: Performed By: #### C BC #### [facility] [address] [place] [address] Dr. Pascual Pittman NEUT # 3.8 103/ul Normal 1.4-6.5 [facility] Comment on above: Performed By: #### C BC #### [facility] [address] [address] [address] Pascual Pittman Neutrophils/100 WBC (Bld) 58.7 % Normal 43.0-75.0 [facility] Comment on above: Performed By: #### C BC #### [facility] [address] [address] [address] Pascual Pittman Platelet mean volume (Bld) [Entitic vol] 9.5 fL Normal 9.5-13.5 [facility] Comment on above: Performed By: #### C BC #### [facility] [address] [address] [address] Pascual Pittman PLT 318 103/ul Normal 150-450 [facility] Comment on above: Performed By: #### C BC #### [facility] [address] [address] [address] Pascual Pittman RBC 4.93 106/ul Normal 4.20-5.40 [facility] Comment on above: Performed By: #### C BC #### [facility] [address] [address] [address] Pascual Pittman WBC 6.5 103/ul Normal 4.0-11.0 [facility] Comment on above: Performed By: #### C BC #### [facility] [address] [address] [address] Pascual Pittman FREE T3on 01-14-2023 FREE T3 2.78 pg/mlL Normal 2.18-3.98 [facility] Comment on above: Performed By: #### F T3, BNP, LIPID, TSH, T4, CMP ####[facility] [id number] [address]Dr. Pascual Pittman GLYCOHEMOGLOBIN A1Con 2022 ADA RECOMMENDATION SEE BELOW Normal [facility] Comment on above: Result Comment: ADA RECOMMENDED LIMIT 4.0 - 6.0 ADA THERAPEUTIC TARGET < 7.0 ACTION SUGGESTED > 7.0 Performed By: #### A 1C ####[facility] [id number] [address]Dr. Pascual Pittman Glucose [Mass/Vol] 123 mg/dL Normal [facility] Comment on above: Performed By: #### A 1C ####[facility] [id number] [place] [id number]. Pascual Pittman HbA1c (Bld) [Mass fraction] 5.9 % Normal 4.5-6.2 [facility] Comment on above: Performed By: #### A 1C ####[facility] [id number] [place] [id number][address] Pascual Pittman LIPID PROFILEon 01-14-2023 CHOL-HDL RATIO NORM SEE BELOW Normal [facility] Comment on above: Result Comment: 3.3 - 4.4 LOW RISK 4.4 - 7.1 AVERAGE RISK 7.1 - 11.0 MODERATE RISK >11.0 HIGH RISK Performed By: #### F T3, BNP, LIPID, TSH, T4, CMP ####[facility] [id number] [address]Dr. Pascual Pittman Cholesterol [Mass/Vol] 190 mg/dL Normal <=200 [facility] Comment on above: Performed By: #### F T3, BNP, LIPID, TSH, T4, CMP ####[facility] [id number] [address]Dr. Pascual Pittman Cholesterol in HDL [Mass/Vol] 56 mg/dL Normal 40-60 [facility] Comment on above: Performed By: #### F T3, BNP, LIPID, TSH, T4, CMP ####[facility] [id number] [place] [id number]. Pascual Pittman Cholesterol in LDL [Mass/Vol] 97.8 mg/dL Normal [facility] Comment on above: Performed By: #### F T3, BNP, LIPID, TSH, T4, CMP ####[facility] [id number] [place] [id number][address] Pascual Pittman Cholesterol.total/Cho lesterol in HDL [Mass ratio] 3.4 {ratio} Normal [facility] Comment on above: Performed By: #### F T3, BNP, LIPID, TSH, T4, CMP ####[facility] [id number] [place] [id number]. Pascual Pittman HDL NORMAL > or = 60 mg/dl - LO W CARDIOVASCULAR RISK <40 mg/dl - HIGH CARDIOVASCULAR RISK Normal [facility] Comment on above: Performed By: #### F T3, BNP, LIPID, TSH, T4, CMP ####[facility] [id number] [address]DrSharonda Pittman LDL CALC NORMAL SEE BELOW Normal [facility] Comment on above: Result Comment: <100 mg/dl OPTIMAL 100 - 129 mg/dl NEAR OR ABOVE OPTIMAL 130 - 159 mg/dl BORDERLINE HIGH 160 - 189 mg/dl HIGH >190 mg/dl VERY HIGH Performed By: #### F T3, BNP, LIPID, TSH, T4, CMP ####[facility] [id number] [address]DrSharonda Pittman Triglyceride [Mass/Vol] 181 mg/dL Critically high <=150 [facility] Comment on above: Performed By: #### F T3, BNP, LIPID, TSH, T4, CMP ####[facility] [id number] [address]DrSharonda Pittman VLDL CALC 36.2 mg/dL Normal [facility] Comment on above: Performed By: #### F T3, BNP, LIPID, TSH, T4, CMP ####[facility] [id number] [address]Dr. Pascual Pittman PROF 14(COMP METB)on 023 Albumin [Mass/Vol] 3.8 g/dL Normal 3.4-5.0 [facility] Comment on above: Performed By: #### F T3, BNP, LIPID, TSH, T4, CMP #### [facility] [address] [place] [address] Dr. Pascual Pittman Albumin/Globulin [Mass ratio] 1.0 {ratio} Normal [facility] Comment on above: Performed By: #### F T3, BNP, LIPID, TSH, T4, CMP #### [facility] [address] [address] [address] Pascual Pittman ALP [Catalytic activity/Vol] 101 U/L Normal 46-116 [facility] Comment on above: Performed By: #### F T3, BNP, LIPID, TSH, T4, CMP #### [facility] [address] [place] [address] Dr. Pascual Pittman ALT [Catalytic activity/Vol] 28 U/L Normal 14-59 [facility] Comment on above: Performed By: #### F T3, BNP, LIPID, TSH, T4, CMP #### [facility] [address] [place] [address] Dr. Pascual Pittman Anion gap [Moles/Vol] 11.3 mmol/L Normal [facility] Comment on above: Performed By: #### F T3, BNP, LIPID, TSH, T4, CMP #### [facility] [address] [place] [address] Dr. Pascual Pittman AST [Catalytic activity/Vol] 19 U/L Normal 15-37 [facility] Comment on above: Performed By: #### F T3, BNP, LIPID, TSH, T4, CMP #### [facility] [address] [place] [address] Dr. Pascual Pittman Bilirubin [Mass/Vol] 0.3 mg/dL Normal 0.2-1.0 [facility] Comment on above: Performed By: #### F T3, BNP, LIPID, TSH, T4, CMP #### [facility] [address] [place] [address] Dr. Pascual Pittman Calcium [Mass/Vol] 10.0 mg/dL Normal 8.5-10.1 [facility] Comment on above: Performed By: #### F T3, BNP, LIPID, TSH, T4, CMP #### [facility] [address] [place] [address] Dr. Pascual Pittman Chloride [Moles/Vol] 102 mmol/L Normal 98-107 [facility] Comment on above: Performed By: #### F T3, BNP, LIPID, TSH, T4, CMP #### [facility] [address] [place] [address] Dr. Pascual Pittman CO2 [Moles/Vol] 30.0 mmol/L Normal 21.0-32.0 [facility] Comment on above: Performed By: #### F T3, BNP, LIPID, TSH, T4, CMP #### [facility] [address] [address] [address] Pascual Pittman Creatinine [Mass/Vol] 0.75 mg/dL Normal 0.55-1.02 [facility] Comment on above: Performed By: #### F T3, BNP, LIPID, TSH, T4, CMP #### [facility] [address] [address] [address] Pascual Pittman EGFR-AF CANADIAN >60 Normal >=60 [facility] Comment on above: Performed By: #### F T3, BNP, LIPID, TSH, T4, CMP #### [facility] [address] [address] [address] Pascual Pittman EGFR-NON AF CANADIAN >60 Normal >=60 [facility] Comment on above: Performed By: #### F T3, BNP, LIPID, TSH, T4, CMP #### [facility] [address] [place] [address] Dr. Pascual Pittman Globulin (S) [Mass/Vol] 3.8 g/dL Normal [facility] Comment on above: Performed By: #### F T3, BNP, LIPID, TSH, T4, CMP #### [facility] [address] [place] [address] Dr. Pascual Pittman Glucose [Mass/Vol] 115 mg/dL Critically high 74-106 [facility] Comment on above: Performed By: #### F T3, BNP, LIPID, TSH, T4, CMP #### [facility] [address] [place] [address] Dr. Pascual Pittman Potassium [Moles/Vol] 4.3 mmol/L Normal 3.5-5.1 [facility] Comment on above: Performed By: #### F T3, BNP, LIPID, TSH, T4, CMP #### [facility] [address] [place] [address] Dr. Pascual Pittman Protein [Mass/Vol] 7.6 g/dL Normal 6.4-8.2 [facility] Comment on above: Performed By: #### F T3, BNP, LIPID, TSH, T4, CMP #### [facility] [address] [place] [address] Dr. Pascual Pittman Sodium [Moles/Vol] 139 mmol/L Normal 136-145 [facility] Comment on above: Performed By: #### F T3, BNP, LIPID, TSH, T4, CMP #### [facility] [id number] Pascual Pittman Urea nitrogen [Mass/Vol] 16.0 mg/dL Normal 7.0-18.0 [facility] Comment on above: Performed By: #### F T3, BNP, LIPID, TSH, T4, CMP #### [facility] [address] [address] [address] Pascual Pittman Urea nitrogen/Creatinine [Mass ratio] 21.3 mg/mg Normal [facility] Comment on above: Performed By: #### F T3, BNP, LIPID, TSH, T4, CMP #### [facility] [address] [address] [address] Pascual Pittman T4on 01-14-2023 T4 [Mass/Vol] 11.10 ug/dL Normal 4.80-13.90 [facility] Comment on above: Performed By: #### F T3, BNP, LIPID, TSH, T4, CMP #### [facility] [id number] Pascual Pittman TSHon 01-14-2023 TSH 0.274 uIU/mL Critically low 0.358-3.740 [facility] Comment on above: Performed By: #### F T3, BNP, LIPID, TSH, T4, CMP ####[facility] [id number] [place], [place] [id number]. Pascual Pittman VITAMIN D 25 OHon 01-14-2023 VIT D 25-OH 44.5 ng/mL Normal [facility] Comment on above: Performed By: #### V ITAD #### [facility] [id number] Pascual Pittman VIT D RANGES SEE BELOW Normal [facility] Comment on above: Result Comment: <20 ng/mL Vit D deficient 20 - <30 ng/mL Vit D insufficient 30 - 100 ng/mL Vit D sufficient >100 ng/mL Potential Toxicity Performed By: #### V ITAD #### [facility] [address] [address] [address] Pascual Pittman MG MAMM SCREEN 3D VALERIANO CADon 10-10-2022 MG MAMM SCREEN 3D VALERIANO CAD Patient: ALBANIA DURAN Exam Date: 10/10/2022 : 1950 Gender:F Ordering : DR MONTEZ SANDOVAL . Admission #: [id number] Family : Order #: [id number] CLICK HERE TO VIEW EXAM RADIOLOGY REPORT [...] throat cancer at age 56. LOCATION: [facility] BREAST COMPOSITION: Heterogeneously dense,which may obscure small [...] MD on 10/10/2022 at 10:44 Normal [facility] XR DEXA BONE DENSITYon 10-10 XR DEXA [...] MJ PATTERSON Date: 2022-10-10 12:58 Normal [facility] Covid-19 PCR (CVDTBH)on 09-24 SARS-CoV-2 (COVID-19) RNA MILTON+probe Ql (Unsp spec) Not detected Normal NOT DETECTED [facility] Comment on above: Result Comment: This test is not yet approved or cleared by the [place] FDA. When there are no FDA-approved or cleared tests available, and other criteria are met, FDA can make tests available under an emergency access mechanism called an Emergency Use Authorization (EUA). The EUA for this test is supported by the Medical Office Scheduler of Health and Human Service's (HHS's) declaration [...] SARS-CoV-2. Performed By: #### C VDTBH #### [facility] [address] [place] [address] Dr. Pascual Pittman INFLUENZA A AND B AGon 10-04 [facility] SEE BELOW Normal [facility] Comment on above: Result Comment: Nega tive for Flu A protein angiten. Infection due to Flu A cannot be ruled out. Flu A angiten in the sample may be below the detection limit of the test. Performed By: #### I NFLUAB #### [facility] [address] [place] [address] Dr. Pascual Pitt[facility] Normal [facility] Comment on above: Result Comment: Nega tive for Flu B protein antigen. Infection due to Flu B cannot be ruled out. Flu B antigen in the sample may be below the detection limit of the test. Performed By: #### I NFLUAB #### [facility] [address] [place] [address] Dr. Pascual Pittman INFLUENZA A AG Negative Normal NEGATIVE SEE COMMENT [facility] Comment on above: Performed By: #### I NFLUAB #### [facility] [address] [place] [address] Dr. Pascual Pittman INFLUENZA B AG Negative Normal NEGATIVE SEE COMMENT [facility] Comment on above: Performed By: #### I NFLUAB #### [facility] [address] [place] [address] Dr. Pascual Pittman INTERNAL CONTROLS Within Normal Limits Normal Wi thin Normal Limits [facility] Comment on above: Performed By: #### I NFLUAB #### [facility] [address] [place] [address] Dr. Pascual Pittman THYROIDon 05-14-2022 US THYROID [...] by: MJ PATTERSON Date: 2022-05-14 16:18 Normal [facility] Vital Signs Date Time Vital Sign Value Performing Clinician Faci lity 06-21-2025 11:20-0400 Diastolic blood pressure 60 mm[Hg] Bharat Fabian MD [facility] 06-21-2025 11:20-0400 Systolic blood pressure 89 mm[Hg] Bharat MARINOP [facility] Encounters Encounter Date Encounter Type Care Provider Facility Start: 06-21-2025 End: 06-21-2025 ambulatory Kade YOUNG Facility:[facility] Start: 06-21-2025 End: 06-21-2025 Patient encounter procedure Kade YOUNG [facility] Start: 06-21-2025 End: 06-21-2025 Encounter identifier Bharat Al Shweiki Work Phone: [facility] Start: 06-21-2025 ambulatory Bharat Al Shweiki [facility] Start: 03-29-2025 End: 03-29-2025 Encounter identifier Bigg Steve Johnston Jr Work Phone: [facility] Start: 03-29-2025 ambulatory Bigg Johnston Jr [facility] Start: 12-28-2024 End: 12-28-2024 Encounter identifier Bharat Al Shweiki Work Phone: [facility] Start: 12-28-2024 ambulatory Bharat Al Shweiki [facility] Start: 10-19-2024 End: 10-19-2024 Encounter identifier Bharat Al Shweiki Work Phone: [facility] Start: 10-19-2024 ambulatory Bharat Al Shweiki [facility] Start: 10-12-2024 End: 10-12-2024 Office outpatient visit 15 minutes Bharat Al Shweiki Work Phone: [facility] Start: 10-12-2024 ambulatory Bharat Al Shweiki [facility] Start: 08-24-2024 End: 08-24-2024 Encounter identifier Bharat Al Shweiki Work Phone: [facility] Start: 08-24-2024 ambulatory Bharat Al Shweiki [facility] Start: 07-27-2024 End: 07-27-2024 Office outpatient visit 25 minutes Bharat Al Shweiki Work Phone: [facility] Start: 07-27-2024 ambulatory Bharat Al Shweiki [facility] Start: 05-18-2024 End: 05-18-2024 Office outpatient visit 25 minutes May El Rashedy Work Phone: [facility] Start: 05-06-2024 End: 05-06-2024 Office outpatient visit 25 minutes May El Rashedy Work Phone: [facility] Start: 03-18-2024 End: 03-18-2024 Encounter identifier May El Rashedy Work Phone: [facility] Start: 02-26-2024 End: 02-26-2024 Encounter identifier May El Rashedy Work Phone: [facility] Start: 01-22-2024 End: 01-22-2024 Encounter identifier May El Rashedy Work Phone: [facility] Start: 12-25-2023 End: 12-25-2023 Encounter identifier May El Rashedy Work Phone: [facility] Start: 11-27-2023 End: 11-27-2023 Encounter identifier May El Rashedy Work Phone: [facility] Start: 10-22-2023 End: 10-22-2023 Office outpatient visit 25 minutes Daxamed M Alkaliby Work Phone: [facility] Start: 09-24-2023 End: 09-24-2023 Encounter identifier Ahmed M Alkaliby Work Phone: [facility] Start: 08-27-2023 End: 08-27-2023 Encounter identifier Ahmed M Alkaliby Work Phone: [facility] Start: 07-30-2023 End: 07-30-2023 Encounter identifier Ahmed M Alkaliby Work Phone: [facility] Start: 07-02-2023 End: 07-02-2023 Office outpatient visit 25 minutes Ahmed M Alkaliby Work Phone: [facility] Start: 06-11-2023 End: 06-11-2023 Encounter identifier Ahmed M Alkaliby Work Phone: [facility] Start: 04-16-2023 End: 04-16-2023 Encounter identifier Kemar Carty Alkaliby Work Phone: [facility] Start: 04-02-2023 End: 04-02-2023 Encounter identifier Kemar Carty Alkaliby Work Phone: [facility] Start: 03-05-2023 End: 03-05-2023 Encounter identifier Kemar Carty Alkaliby Work Phone: [facility] Start: 01-22-2023 End: 01-22-2023 Encounter identifier Kemar Carty Alkaliby Work Phone: [facility] Start: 01-16-2023 End: 01-16-[address] MONTEZ SANDOVAL . Facility:[facility] Start: 01-14-2023 End: 01-15-[address] MONTEZ SANDOVAL . Facility:[facility] Start: 01-01-2023 End: 01-01-2023 Encounter identifier Kemar Carty [facility]kal[facility]y Work Phone: [facility] Start: 12-11-2022 End: 12-11-2022 Encounter identifier Kemar Carty Alkal[facility]y Work Phone: [facility] Start: 10-30-2022 End: 10-30-2022 Encounter identifier Kemar Ahmadiby Work Phone: [facility] Start: 10-10-2022 End: 10-11-[address] MONTEZ SANDOVAL . Facility:[facility] Start: 10-04-2022 End: 10-04-[address] MONTEZ SANDOVAL . Facility:[facility] Start: 09-25-2022 End: 09-25-2022 Encounter identifier Kemar Carty Alkaliby Work Phone: [facility] Start: 09-19-2022 End: 09-19-2022 Encounter identifier Kemar Carty Alkaliby Work Phone: [facility] Start: 09-04-[address] MONTEZ SANDOVAL . Facili ty:[facility] Start: 06-19-2022 End: 06-19-2022 Encounter identifier Kemar Ahmadiby Work Phone: [facility] Start: 06-12-2022 End: 06-12-2022 Encounter identifier Kemar Leos Work Phone: [facility] Start: 05-14-2022 End: 05-15-[address] MONTEZ SANDOVAL . Facility: Start: 03-20-2022 End: 03-20-2022 Encounter identifier Kemar Leos Work Phone: [facility] Start: 03-13-2022 End: 03-13-2022 Encounter identifier Kemar Ahmadiby Work Phone: [facility] Start: 12-19-2021 End: 12-19-2021 Encounter identifier Kemar Leos Work Phone: [facility] Start: 12-12-2021 End: 12-12-2021 Office outpatient visit 25 minutes Kemar Leos Work Phone: [facility] Start: 09-26-2021 End: 09-26-2021 Encounter identifier Jose Manuel Coreas Work Phone: [facility] Start: 09-19-2021 End: 09-19-2021 Encounter identifier Jose Manuel Coreas Work Phone: [facility] Start: 06-20-2021 End: 06-20-2021 Encounter identifier Jose Manuel Moralesbs Work Phone: [facility] Start: 05-30-2021 End: 05-30-2021 Office outpatient visit 25 minutes Jose Manuel Coreas Work Phone: [facility] Start: 03-21-2021 End: 03-21-2021 Encounter identifier Jose Manuel Pizano Joss Work Phone: [facility] Start: 03-07-2021 End: 03-07-2021 Encounter identifier Jose Manuel Pizano Joss Work Phone: [facility] Start: 12-20-2020 End: 12-20-2020 Encounter identifier Jose Manuel Coreas Work Phone: [facility] Start: 12-06-2020 End: 12-06-2020 Encounter identifier Jose Manuel Coreas Work Phone: [facility] Start: 09-19-2020 End: 09-19-2020 Encounter identifier Jose Manuel Coreas Work Phone: [facility] Start: 09-05-2020 End: 09-05-2020 Office outpatient visit 15 minutes Jose Manuel Coreas Work Phone: [facility] Start: 07-11-2020 End: 07-11-2020 Encounter identifier Jose Manuel Coreas Work Phone: [facility] Start: 05-30-2020 End: 05-30-2020 Encounter identifier Jose Manuel Coreas Work Phone: [facility] Start: 05-03-2020 End: 05-03-2020 Office outpatient visit 15 minutes Jose Manuel Coreas Work Phone: [facility] Start: 03-20-2020 End: 03-20-2020 Encounter identifier Jose Manuel Coreas Work Phone: [facility] Start: 02-21-2020 End: 02-21-2020 Encounter identifier Jose Manuel Coreas Work Phone: [facility] Start: 01-10-2020 End: 01-10-2020 Encounter identifier Valery Pizano Orgel Work Phone: [facility] Start: 12-27-2019 End: 12-27-2019 Encounter identifier Valery Jerica [place]gel Work Phone: [facility] Start: 11-08-2019 End: 11-08-2019 Encounter identifier Valery K Orgel Work Phone: [facility] Start: 11-01-2019 End: 11-01-2019 Encounter identifier Valery Jerica Orgel Work Phone: [facility] Start: 09-20-2019 End: 09-20-2019 Encounter identifier Valery K Orgel Work Phone: [facility] Start: 09-13-2019 End: 09-13-2019 Encounter identifier Valery Jerica Orgel Work Phone: [facility] Start: 08-09-2019 End: 08-09-2019 Encounter identifier Valery Jerica Orgel Work Phone: [facility] Start: 07-12-2019 End: 07-12-2019 Encounter identifier Valery Jerica Orgel Work Phone: [facility] Start: 06-21-2019 End: 06-21-2019 Encounter identifier Valery K Orgel Work Phone: [facility] Start: 05-31-2019 End: 05-31-2019 Encounter identifier Valery Jerica Orgel Work Phone: [facility] Start: 05-10-2019 End: 05-10-2019 Encounter identifier Valery Jerica Orgel Work Phone: [facility] Start: 04-26-2019 End: 04-26-2019 Encounter identifier Valery Jerica Orgel Work Phone: [facility] Start: 04-05-2019 End: 04-05-2019 Encounter identifier Valery Jerica Orgel Work Phone: [facility] Start: 03-29-2019 End: 03-29-2019 Encounter identifier Valery Jerica [place]gel Work Phone: [facility] Start: 03-01-2019 End: 03-01-2019 Encounter identifier Valery Jerica [place]gel Work Phone: [facility] Start: 02-22-2019 End: 02-22-2019 Office outpatient new 45 minutes Valery Jerica [place]gel Work Phone: [facility] Procedures Date Procedure Procedure Detail Performing Clinician Start: 06-21-2025 End: 06-21-2025 Computerized ophthalmic imaging retina Bharat Fabian Start: 06-21-2025 End: 06-21-2025 Eylea HD Bharat Fabian Start: 06-21-2025 End: 06-21-2025 Intravitreal njx pharmacologic agt spx Bharat Fabian Start: 03-29-2025 End: 03-29-2025 Computerized ophthalmic imaging retina Bharat Fabian Start: 03-29-2025 End: 03-29-2025 Eylea HD Bharat Griffinweiki Start: 03-29-2025 End: 03-29-2025 Intravitreal njx pharmacologic agt spx Bharat Bacaiki Start: 12-28-2024 End: 12-28-2024 Computerized ophthalmic imaging retina Bharat Fabian Start: 12-28-2024 End: 12-28-2024 Eylea HD Bharat Griffinrafa Start: 12-28-2024 End: 12-28-2024 Intravitreal njx pharmacologic agt spx Bharat Fabian Start: 10-19-2024 End: 10-19-2024 Computerized ophthalmic imaging retina Bharat Fabian Start: 10-19-2024 Eylea 1mg Pre-filled Syringe Bharat Fabian Start: 10-19-2024 End: 10-19-2024 Eylea 1mg Pre-filled Syringe Bharat Fabian MD Start: 10-19-2024 End: 10-19-2024 Intravitreal njx pharmacologic agt spx Bharat Fabian Start: 10-12-2024 End: 10-12-2024 Complex e/m visit add on Bharat Og Start: 10-12-2024 End: 10-12-2024 Computerized ophthalmic imaging retina Bharat Fabian Start: 08-24-2024 End: 08-24-2024 Computerized ophthalmic imaging retina Bharat Fabian Start: 08-24-2024 Eylea 1mg Pre-filled Syringe Bharat Fabian Start: 08-24-2024 End: 08-24-2024 Eylea 1mg Pre-filled Syringe Bharat Fabian MD Start: 08-24-2024 End: 08-24-2024 Intravitreal njx pharmacologic agt spx Bharat Fabian Start: 07-27-2024 End: 07-27-2024 Computerized ophthalmic imaging retina Bharat Fabian Start: 07-27-2024 End: 07-27-2024 Intravitreal njx pharmacologic agt [place] Bharat Fabian Start: 07-27-2024 End: 07-27-2024 Ricardofodisha Fabian Start: 05-18-2024 End: 05-18-2024 Computerized ophthalmic imaging retina Bharat Fabian MD Start: 05-18-2024 End: 05-18-2024 Intravitreal njx pharmacologic agt spx Bharat Fabian MD Start: 05-18-2024 End: 05-18-2024 Ricardofodisha Fabian MD Start: 05-06-2024 End: 05-06-2024 Computerized ophthalmic imaging retina Bharat Fabian MD Start: 05-06-2024 End: 05-06-2024 Eylea 1mg Pre-filled Syringe Bharat Fabian MD Start: 05-06-2024 End: 05-06-2024 Intravitreal Injection Of Phamacologic Agent Bharat Fabian MD Start: 03-18-2024 End: 03-18-2024 Computerized ophthalmic imaging retina Bharat Fabian MD Start: 03-18-2024 End: 03-18-2024 Intravitreal Injection Of Phamacologic Agent Bharat Fabian MD Start: 03-18-2024 End: 03-18-2024 Dee Fabian MD Start: 02-26-2024 End: 02-26-2024 Computerized ophthalmic imaging retina Bharat Fabian MD Start: 02-26-2024 End: 02-26-2024 Eylea 1mg Pre-filled Syringe Bharat Fabian MD Start: 02-26-2024 End: 02-26-2024 Intravitreal Injection Of Phamacologic Agent Bharat Fabian MD Start: 01-22-2024 End: 01-22-2024 Computerized ophthalmic imaging retina Bharat Fabian MD Start: 01-22-2024 End: 01-22-2024 Intravitreal Injection Of Phamacologic Agent Bharat Fabian MD Start: 01-22-2024 End: 01-22-2024 Dee Fabian MD Start: 12-25-2023 End: 12-25-2023 Computerized ophthalmic imaging retina Bharat Fabian MD Start: 12-25-2023 End: 12-25-2023 Eylea 1mg Pre-filled Syringe Bharat Fabian MD Start: 12-25-2023 End: 12-25-2023 Intravitreal Injection Of Phamacologic Agent Bharat Fabian MD Start: 11-27-2023 End: 11-27-2023 Computerized ophthalmic imaging retina Bharat Fabian MD Start: 11-27-2023 End: 11-27-2023 Fundus Photos No Charge Bilateral Bharat Fabian MD Start: 11-27-2023 End: 11-27-2023 Intravitreal Injection Of Phamacologic Agent Bharat Fabian MD Start: 11-27-2023 End: 11-27-2023 Syfodisha Fabian MD Start: 10-22-2023 End: 10-22-2023 Computerized ophthalmic imaging retina Bharat Fabian MD Start: 10-22-2023 End: 10-22-2023 Eylea 1mg Pre-filled Syringe Bharat Fabian MD Start: 10-22-2023 End: 10-22-2023 Intravitreal Injection Of Phamacologic Agent Bharat Fabian MD Start: 09-24-2023 End: 09-24-2023 Computerized ophthalmic imaging retina Bharat Fabian MD Start: 09-24-2023 End: 09-24-2023 Intravitreal Injection Of Phamacologic Agent Bharat Fabian MD Start: 09-24-2023 End: 09-24-2023 Syfovre Bharat Fabian MD Start: 08-27-2023 End: 08-27-2023 Computerized ophthalmic imaging retina Bharat Fabian MD Start: 08-27-2023 End: 08-27-2023 Eylea 1mg Pre-filled Syringe Bharat Fabian MD Start: 08-27-2023 End: 08-27-2023 Intravitreal Injection Of Phamacologic Agent Bharat Fabian MD Start: 07-30-2023 End: 07-30-2023 Computerized ophthalmic imaging retina Bharat Fabian MD Start: 07-30-2023 End: 07-30-2023 Intravitreal Injection Of Phamacologic Agent Bharat Fabian MD Start: 07-30-2023 End: 07-30-2023 Syfovre Bharat Fabian MD Start: 07-02-2023 End: 07-02-2023 Computerized ophthalmic imaging retina Bharat Fabian MD Start: 07-02-2023 End: 07-02-2023 Eylea 1mg Pre-filled Syringe Bharat Fabian MD Start: 07-02-2023 End: 07-02-2023 Intravitreal njx pharmacologic agt spx Bharat Fabian MD Start: 06-11-2023 End: 06-11-2023 Computerized ophthalmic imaging retina Bharat Fabian MD Start: 06-11-2023 End: 06-11-2023 Eylea 1mg Pre-filled Syringe Bharat Fabian MD Start: 06-11-2023 End: 06-11-2023 Intravitreal njx pharmacologic agt spx Bharat Fabian MD Start: 04-16-2023 End: 04-16-2023 Computerized ophthalmic imaging retina Bharat Fabian MD Start: 04-16-2023 End: 04-16-2023 Eylea 1mg Pre-filled Syringe Bharat Fabian MD Start: 04-16-2023 End: 04-16-2023 Intravitreal njx pharmacologic agt spx Bharat Fabian MD Start: 04-02-2023 End: 04-02-2023 Computerized ophthalmic imaging retina Bharat Fabian MD Start: 04-02-2023 End: 04-02-2023 Eylea 1mg Pre-filled Syringe Bharat Fabian MD Start: 04-02-2023 End: 04-02-2023 Intravitreal njx pharmacologic agt spx Bharat Fabian MD Start: 03-05-2023 End: 03-05-2023 Computerized ophthalmic imaging retina Bharat Fabian MD Start: 03-05-2023 End: 03-05-2023 Eylea 1mg Pre-filled Syringe Bharat Fabian MD Start: 03-05-2023 End: 03-05-2023 Intravitreal njx pharmacologic agt spx Bharat Fabian MD Start: 01-22-2023 End: 01-22-2023 Computerized ophthalmic imaging retina Bharat Fabian MD Start: 01-22-2023 End: 01-22-2023 Eylea 1mg Pre-filled Syringe Bharat Fabian MD Start: 01-22-2023 End: 01-22-2023 Intravitreal njx pharmacologic agt spx Bharat Fabian MD Start: 01-01-2023 End: 01-01-2023 Computerized ophthalmic imaging retina Bharat Fabian MD Start: 01-01-2023 End: 01-01-2023 Eylea 1mg Pre-filled Syringe Bharat Fabian MD Start: 01-01-2023 End: 01-01-2023 Intravitreal njx pharmacologic agt spx Bharat Fabian MD Start: 12-11-2022 End: 12-11-2022 Computerized ophthalmic imaging retina Bharat Fabian MD Start: 12-11-2022 End: 12-11-2022 Eylea 1mg Pre-filled Syringe Bharat Fabian MD Start: 12-11-2022 End: 12-11-2022 Intravitreal njx pharmacologic agt spx Bharat Fabian MD Start: 10-30-2022 End: 10-30-2022 Computerized ophthalmic imaging retina Bharat Fabian MD Start: 10-30-2022 End: 10-30-2022 Eylea 1mg Pre-filled Syringe Bharat Fabian MD Start: 10-30-2022 End: 10-30-2022 Intravitreal njx pharmacologic agt spx Bharat Fabian MD Start: 09-25-2022 End: 09-25-2022 Eylea 1mg Pre-filled Syringe Bharat Fabian MD Start: 09-25-2022 End: 09-25-2022 Intravitreal njx pharmacologic agt spx Bharat Fabian MD Start: 09-19-2022 End: 09-19-2022 Computerized ophthalmic imaging retina Bharat Fabian MD Start: 09-19-2022 End: 09-19-2022 Eylea 1mg Pre-filled Syringe Bharat Fabian MD Start: 09-19-2022 End: 09-19-2022 Intravitreal njx pharmacologic agt spx Bharat Fabian MD Start: 06-19-2022 End: 06-19-2022 Eylea 1mg Pre-filled Syringe Bharat Fabian MD Start: 06-19-2022 End: 06-19-2022 Intravitreal njx pharmacologic agt spx Bharat Fabian MD Start: 06-12-2022 End: 06-12-2022 Computerized ophthalmic imaging retina Bharat Fabian MD Start: 06-12-2022 End: 06-12-2022 Eylea 1mg Pre-filled Syringe Bharat Fabian MD Start: 06-12-2022 End: 06-12-2022 Intravitreal njx pharmacologic agt spx Bharat Fabian MD Start: 03-20-2022 End: 03-20-2022 Eylea 1mg Pre-filled Syringe Bharat Fabian MD Start: 03-20-2022 End: 03-20-2022 Intravitreal njx pharmacologic agt spx Bharat Fabian MD Start: 03-13-2022 End: 03-13-2022 Computerized ophthalmic imaging retina Bharat Fabian MD Start: 03-13-2022 End: 03-13-2022 Eylea 1mg Pre-filled Syringe Bharat Fabian MD Start: 03-13-2022 End: 03-13-2022 Intravitreal njx pharmacologic agt spx Bharat Fabian MD Start: 12-19-2021 End: 12-19-2021 Eylea 1mg Pre-filled Syringe Bharat Fabian MD Start: 12-19-2021 End: 12-19-2021 Intravitreal njx pharmacologic agt spx Bharat Fabian MD Start: 12-12-2021 End: 12-12-2021 Computerized ophthalmic imaging retina Bharat Fabian MD Start: 12-12-2021 End: 12-12-2021 Eylea 1mg Pre-filled Syringe Bharat Fabian MD Start: 12-12-2021 End: 12-12-2021 Intravitreal njx pharmacologic agt spx Bharat Fabian MD Start: 09-26-2021 End: 09-26-2021 Eylea 1mg Pre-filled Syringe Bharat Fabian MD Start: 09-26-2021 End: 09-26-2021 Intravitreal njx pharmacologic agt spx Bharat Fabian MD Start: 09-19-2021 End: 09-19-2021 Computerized ophthalmic imaging retina Bharat Fabian MD Start: 09-19-2021 End: 09-19-2021 Eylea 1mg Pre-filled Syringe Bharat Fabian MD Start: 09-19-2021 End: 09-19-2021 Intravitreal njx pharmacologic agt spx Bharat Fabian MD Start: 06-20-2021 End: 06-20-2021 Computerized ophthalmic imaging retina Bharat Fabian MD Start: 06-20-2021 End: 06-20-2021 Eylea 1mg Pre-filled Syringe Bharat Fabian MD Start: 06-20-2021 End: 06-20-2021 Intravitreal njx pharmacologic agt spx Bharat Fabian MD Start: 05-30-2021 End: 05-30-2021 Computerized ophthalmic imaging retina Bharat Fabian MD Start: 05-30-2021 End: 05-30-2021 Eylea 1mg Pre-filled Syringe Bharat Fabian MD Start: 05-30-2021 End: 05-30-2021 Intravitreal njx pharmacologic agt spx Bharat Fabian MD Start: 03-21-2021 End: 03-21-2021 Eylea 1mg Pre-filled Syringe Bharat Fabian MD Start: 03-21-2021 End: 03-21-2021 Intravitreal njx pharmacologic agt spx Bharat Fabian MD Start: 03-07-2021 End: 03-07-2021 Computerized ophthalmic imaging retina Bharat Fabian MD Start: 03-07-2021 End: 03-07-2021 Eylea 1mg Pre-filled Syringe Bharat Fabian MD Start: 03-07-2021 End: 03-07-2021 Intravitreal njx pharmacologic agt spx Bharat Fabian MD Start: 12-20-2020 End: 12-20-2020 Computerized ophthalmic imaging retina Bharat Fabian MD Start: 12-20-2020 End: 12-20-2020 Eylea 1mg Pre-filled Syringe Bharat Fabian MD Start: 12-20-2020 End: 12-20-2020 Intravitreal njx pharmacologic agt spx Bharatrobbi Fabian MD Start: 12-06-2020 End: 12-06-2020 Computerized ophthalmic imaging retina Bharat Fabian MD Start: 12-06-2020 End: 12-06-2020 Eylea 1mg Pre-filled Syringe Bharat Fabian MD Start: 12-06-2020 End: 12-06-2020 Intravitreal njx pharmacologic agt spx Bharat Fabian MD Start: 09-19-2020 End: 09-19-2020 Aflibercept injection Bharat Fabian MD Start: 09-19-2020 End: 09-19-2020 Computerized ophthalmic imaging retina Bharat Fabian MD Start: 09-19-2020 End: 09-19-2020 Intravitreal njx pharmacologic agt spx Bharat Fabian MD Start: 09-05-2020 End: 09-05-2020 Computerized ophthalmic imaging retina Bharat Fabian MD Start: 09-05-2020 End: 09-05-2020 Eylea 1mg Pre-filled Syringe Bharat Fabian MD Start: 09-05-2020 End: 09-05-2020 Intravitreal njx pharmacologic agt spx Bharat Fabian MD Start: 07-11-2020 End: 07-11-2020 Computerized ophthalmic imaging retina Bharat Fabian MD Start: 07-11-2020 End: 07-11-2020 Eylea 1mg Pre-filled Syringe Bharat Fabian MD Start: 07-11-2020 End: 07-11-2020 Intravitreal njx pharmacologic agt spx Bharat Fabian MD Start: 06-21-2020 Christina BEYER Start: 05-30-2020 End: 05-30-2020 Computerized ophthalmic imaging retina Bharat Fabian MD Start: 05-30-2020 End: 05-30-2020 Eylea 1mg Pre-filled Syringe Bharat Fabian MD Start: 05-30-2020 End: 05-30-2020 Intravitreal njx pharmacologic agt spx Bharat Fabian MD Start: 05-03-2020 End: 05-03-2020 Computerized ophthalmic imaging retina Bharat Fabian MD Start: 05-03-2020 End: 05-03-2020 Eylea 1mg Pre-filled Syringe Bharat Fabian MD Start: 05-03-2020 End: 05-03-2020 Intravitreal njx pharmacologic agt spx Bharat Fabian MD Start: 03-20-2020 End: 03-20-2020 Computerized ophthalmic imaging retina Bharat Fabian MD Start: 03-20-2020 End: 03-20-2020 Eylea 1mg Pre-filled Syringe Bharat Fabian MD Start: 03-20-2020 End: 03-20-2020 Intravitreal njx pharmacologic agt spx Bharat Fabian MD Start: 02-21-2020 End: 02-21-2020 Aflibercept injection Bharat Fabian MD Start: 02-21-2020 End: 02-21-2020 Computerized ophthalmic imaging retina Bharat Fabian MD Start: 02-21-2020 End: 02-21-2020 Intravitreal njx pharmacologic agt spx Bharat Fabian MD Start: 01-10-2020 End: 01-10-2020 Computerized ophthalmic imaging retina Bharat Fabian MD Start: 01-10-2020 End: 01-10-2020 Eylea 1mg Pre-filled Syringe Bharat Fabian MD Start: 01-10-2020 End: 01-10-2020 Intravitreal njx pharmacologic agt spx Bharat Fabian MD Start: 01-10-2020 End: 01-10-2020 Opscpy extnd rta drawing & scl deprsn i&r uni/bi Bharat Fabian MD Start: 12-27-2019 End: 12-27-2019 Aflibercept injection Bharat Fabian MD Start: 12-27-2019 End: 12-27-2019 Computerized ophthalmic imaging retina Bharat Fabian MD Start: 12-27-2019 End: 12-27-2019 Intravitreal njx pharmacologic agt spx Bharat Fabian MD Start: 12-27-2019 End: 12-27-2019 Opscpy extnd rta drawing & scl deprsn i&r uni/bi Bharat Fabian MD Start: 11-08-2019 End: 11-08-2019 Aflibercept injection Bharat Fabian MD Start: 11-08-2019 End: 11-08-2019 Computerized ophthalmic imaging retina Bharat Fabian MD Start: 11-08-2019 End: 11-08-2019 Intravitreal njx pharmacologic agt spx Bharat Fabian MD Start: 11-01-2019 End: 11-01-2019 Aflibercept injection Bharatrobbi Fabian MD Start: 11-01-2019 End: 11-01-2019 Computerized ophthalmic imaging retina Bharat Fabian MD Start: 11-01-2019 End: 11-01-2019 Intravitreal njx pharmacologic agt spx Bharat Elliot Doe MD Start: 09-20-2019 End: 09-20-2019 Aflibercept injection Bharat Elliot Doe MD Start: 09-20-2019 End: 09-20-2019 Computerized ophthalmic imaging retina Bharatrobbi Fabian MD Start: 09-20-2019 End: 09-20-2019 Intravitreal njx pharmacologic agt spx Bharat Elliot Doe MD Start: 09-13-2019 End: 09-13-2019 Aflibercept injection Bharat Elliot Doe MD Start: 09-13-2019 End: 09-13-2019 Computerized ophthalmic imaging retina Bharat Fabian MD Start: 09-13-2019 End: 09-13-2019 Intravitreal njx pharmacologic agt spx Bharat Elliot Doe MD Start: 08-09-2019 End: 08-09-2019 Aflibercept injection Bharat Elliot Doe MD Start: 08-09-2019 End: 08-09-2019 Computerized ophthalmic imaging retina Bharat Fabian MD Start: 08-09-2019 End: 08-09-2019 Intravitreal njx pharmacologic agt spx Bharat Fabian MD Start: 07-12-2019 End: 07-12-2019 Aflibercept injection Bharat Fabian MD Start: 07-12-2019 End: 07-12-2019 Computerized ophthalmic imaging retina Bharat Fabian MD Start: 07-12-2019 End: 07-12-2019 Intravitreal njx pharmacologic agt spx Bharat Elliot Doe MD Start: 06-21-2019 End: 06-21-2019 Aflibercept injection Bharat Elliot Doe MD Start: 06-21-2019 End: 06-21-2019 Computerized ophthalmic imaging retina Bharat Fabian MD Start: 06-21-2019 End: 06-21-2019 Intravitreal njx pharmacologic agt spx Bharat Elliot Doe MD Start: 05-31-2019 End: 05-31-2019 Aflibercept injection Bharat Elliot Doe MD Start: 05-31-2019 End: 05-31-2019 Computerized ophthalmic imaging retina Bharat Elliot Doe MD Start: 05-31-2019 End: 05-31-2019 Intravitreal njx pharmacologic agt spx Bharat Elliot Doe MD Start: 05-10-2019 End: 05-10-2019 Aflibercept injection Bharat Elliot Doe MD Start: 05-10-2019 End: 05-10-2019 Computerized ophthalmic imaging retina Bharat Fabian MD Start: 05-10-2019 End: 05-10-2019 Intravitreal njx pharmacologic agt spx Bharat Elliot Doe MD Start: 04-26-2019 End: 04-26-2019 Aflibercept injection Bharat Fabian MD Start: 04-26-2019 End: 04-26-2019 Computerized ophthalmic imaging retina Bharat Elliot Doe MD Start: 04-26-2019 End: 04-26-2019 Intravitreal njx pharmacologic agt spx Bharat Elliot Doe MD Start: 04-05-2019 End: 04-05-2019 Aflibercept injection Bharat Elliot Doe MD Start: 04-05-2019 End: 04-05-2019 Computerized ophthalmic imaging retina Bharat Elliot Doe MD Start: 04-05-2019 End: 04-05-2019 Intravitreal njx pharmacologic agt spx Bharat Fabian MD Start: 03-29-2019 End: 03-29-2019 Aflibercept injection Bharat Fabian MD Start: 03-29-2019 End: 03-29-2019 Computerized ophthalmic imaging retina Bharat Fabian MD Start: 03-29-2019 End: 03-29-2019 Intravitreal njx pharmacologic agt spx Bharat Fabian MD Start: 03-01-2019 End: 03-01-2019 Aflibercept injection Bharat Fabian MD Start: 03-01-2019 End: 03-01-2019 Computerized ophthalmic imaging retina Bharat Fabian MD Start: 03-01-2019 End: 03-01-2019 Intravitreal njx pharmacologic agt spx Bharat Elliot Doe MD Start: 02-22-2019 End: 02-22-2019 Aflibercept injection Bharat Fabian MD Start: 02-22-2019 End: 02-22-2019 Fluorescein angrph w/multiframe i&r uni/bi Bharat Fabian MD Start: 02-22-2019 End: 02-22-2019 Intravitreal njx pharmacologic agt spx Bharat [place] TELLEZ Appendectomy Kade HANNAH Comment on above: as 15 year old Tonsillectomy Kade HANNAH Vaginal hysterectomy Kade HANNAH Comment on above: [id number] Plan of Treatment Date Care Activity Detail Author Start: 09-06-2025 [place] / 12wk DFE OCT EYl HD OS (11) [facility] Work Phone: Start: 06-21-2025 Counseling about tobacco use Tobacco cessation counseling [facility] Start: 03-29-2025 Counseling about tobacco use Tobacco cessation counseling [facility] Start: 08-24-2024 Referral to tobacco use cessation clinic Tobacco cessation counseling [facility] Start: 05-18-2024 Referral to tobacco use cessation clinic Tobacco cessation counseling [facility] Start: 05-18-2024 Referral to tobacco use cessation counseling program Tobacco cessation counseling [facility] Start: 02-26-2024 Smoking cessation education Tobacco cessation counseling [facility] Start: 12-25-2023 Smoking effects education Tobacco cessation counseling [facility] Start: 11-27-2023 Smoking cessation education Tobacco cessation counseling [facility] Start: 12-12-2021 Smoking cessation education Tobacco cessation counseling [facility] Start: 05-30-2021 Smoking cessation education Tobacco cessation counseling [facility] Start: 09-19-2020 Smoking cessation education Tobacco cessation counseling [facility] Start: 07-11-2020 Smoking cessation education Tobacco cessation counseling [facility] Start: 05-30-2020 Smoking cessation education Tobacco cessation counseling [facility] Start: 05-03-2020 Smoking cessation education Tobacco cessation counseling [facility] Start: 03-20-2020 Smoking cessation education Tobacco cessation counseling [facility] Start: 02-21-2020 Smoking cessation education Tobacco cessation counseling [facility] Start: 02-21-2020 Patient Education Health Infor mation for You: [employer]~ [facility] Work Phone: Start: 01-10-2020 Smoking cessation education Tobacco cessation counseling [facility] Start: 08-09-2019 Smoking cessation education Tobacco cessation counseling [facility] Start: 07-12-2019 Smoking cessation education Tobacco cessation counseling [facility] Start: 06-21-2019 Smoking cessation education Tobacco cessation counseling [facility] Start: 03-29-2019 Smoking cessation education Tobacco cessation counseling [facility] Start: 02-22-2019 Smoking cessation education Tobacco cessation counseling [facility] Immunizations Immunization Date Immunization Notes Care Provider Bravo escobedo 10-11-2021 SARS-CoV-2 (COVID-19 ) Ad26 vaccine, recombinant Kade GERRIFatou [facility] [place] Payers Date Payer Category Payer Medicare [id number] 1960 Medicare [id number] 1960 Self-pay 1960 Unknown [id number] 1949 Unknown [id number] 2.16.84 [id number] 1949 Unknown [id number] 2.16.84 [id number] 1949 Unknown [id number] 2.16.84 [id number] 1949 Unknown [id number] 2.16.84 [id number] 1949 Unknown [id number] 2.16.84 [id number] 1949 Unknown [id number] 2.16.84 [id number] 1949 Unknown [id number] 2.16.8 [id number] 1949 Unknown [id number] 2.16.84 [id number] 1949 Unknown [id number] 2.16.84 [id number] 1949 Unknown [id number] 2.16.84 [id number] 1949 Unknown [id number] 2.16.84 [id number] 1949 Unknown [id number] 2.16.84 [id number] 1949 Unknown [id number] 2.16.840 .[id number] 1949 Unknown [id number] [id number] .[id number] Private Health Insurance 6ed [id number] Social History Date Type Detail Facility Start: 06-21-2025 Tobacco smoking status Ex-smoker (finding) [facility] Comment on above: quit 09/23/2019, smo ked roughly 56 years Tobacco smoking status Never [facility] Comment on above: quit 09/23/2019, smo ked roughly 56 years Sexual Orientation [facility] Sex Assigned At Female [facility] Sex Female (finding) [facility] Start: 06-21-2025 Tobacco smoking status NHIS Unknown if ever smoked [facility] Start: 06-21-2025 Health-related behavior (observable entity) Caffeine Use Details [facility] Start: 06-21-2025 Tobacco use and exposure Smoking Tobacco Use Details [facility] Sex Assigned At Female [facility] Work Phone: Start: 12-09-2022 Sexual Orientation Straight or heterosexual [facility] NEGATED: Highlighted row Alcohol intake Alcohol Use Details [facility] NEGATED: Highlighted rowStart: 06-21-2025 History of tobacco use Ex-cigarette smoker [facility] Clinical Notes 06-21-2025 Note Date & Type Note Facility 06-21-2025 Note General Surgery Offi ce/Clinic Note Chief Complaint consultation for colonoscopy HPI Staff 74 year old female presents on consultation for surveillance colonoscopy. Last colonoscopy completed 05/2020 with ascending tubular adenoma. Mother with history of colon cancer, diagnosed age late 70's-early 80's. Denies abdominal or rectal pain. No rectal bleeding or change in bowel habits. Denies nausea, vomiting or weight loss. History of Present Illness 74 yo female with h/o htn, COPD, DMII, presents for surveillance colonoscopy; last colonoscopy 2019 with removal of 1.5 cm ascending colon tubular adenoma; denies change in bms or blood in stools, no abd complaints; abd operations significant for appendectomy and vaginal hysterectomy; on Diclofenac, no asa; former smoker; fmhx of colon cancer in patient's mother, no fmhx of IBD. Review of Systems PHQ Score Initial Depression Screen Score: 0 SCORE ROS - Provider Constitutional: no fever, no sweats, no weight loss. Eyes: yes glasses, no blurred vision, no visual loss. [...] or noncontributory. Physical Exam Vitals & Measurements HR: 72(Peripheral) RR: 16 BP: 110/62 HT: 164.4 cm HT: 65 in WT: 79.8 kg WT: 175.929 lb BMI: 29.53 HEENT: normal conjunctiva, sclera clear, no scleral icterus, EOM intact, PERRLA, oral mucosa moist without lesions. Neck: trachea midline, no mass, symmetric, no thyromegaly or nodules, no adenopathy Respiratory: lungs CTA, respirations non labored. Cardiovascular: regular rate and rhythm, no murmur, no pedal edema or varicosities. Gastrointestinal: obese, soft, non distended, no tenderness, no masses, no palpable hernias, diastasis recti no, no hepatosplenomegaly; normal bs Musculoskeletal: normal gait, digits and nails without infection, nodes, cyanosis, clubbing. Skin: no rashes, no lesions, no ulcers, no subcutaneous nodules, induration. Psychiatric/Neuro: oriented to time, place, person, judgement normal, affect appropriate for age, insight intact, no focal deficits. Tests: , review of old records completed , Discussed surgical options, risks, and possible complications with patient. Assessment/Plan 1. Personal history of adenomatous and serrated colon polyps (Z86.0101: Personal history of adenomatous and serrated colon polyps) plan colonoscopy under anesthesia, informed consent obtained. 2. Family history of colon cancer in mother (Z80.0: Family history of malignant neoplasm of digestive organs) see # 1 Follow-up No qualifying data available Problem List/Past Medical History Ongoing BMI 29.0-29.9,adult Chronic obstructive pulmonary disease Family history of colon cancer in mother HTN (hypertension) Macular degeneration Occult blood in stools Overweight Personal history of adenomatous and serrated colon polyps Positive colorectal cancer screening using Cologuard test Tubular adenoma of colon Type 2 diabetes mellitus Historical No qualifying data Procedure/Surgical History Colonoscopy (06/21/2020), Appendectomy, Tonsillectomy, Vaginal hysterectomy. Medications calcium-vitamin D 600 mg-200 intl units oral capsule, 1 cap(s), Oral, BID cetirizine 10 mg Tab, 10 mg= 1 tab(s), Oral, Daily diclofenac sodium 75 mg Oral EC Tab, 75 mg= 1 tab(s), Oral, Daily Fish Oil 1200 mg oral capsule, 1200 mg= 1 cap(s), Oral, BID lisinopril 40 mg Tab, 40 mg= 1 tab(s), Oral, Daily metformin 500 mg Tab, 500 mg= 1 tab(s), Oral, BID One A Day Women 50 Plus, See Instructions PreserVision AREDS 2, 1 cap(s), Oral, Daily Allergies Contrast Dye (Unknown) Social History Alcohol - Denies Alcohol Use, 06/01/2020 Substance Abuse - Denies Substance Abuse, 06/01/2020 Tobacco Former smoker, quit more than 30 days ago Tobacco Use:. Never Smokeless Tobacco Use:. Cigarettes, 0.5 per day. Started age 14.0 Years. Stopped age 68 Years., 06/21/2025 Family History Dementia: Mother. Hodgkin's disease: Father. Primary malignant neoplasm of colon: Mother. (more content not included)... 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 patient states that she does have a appointment with the cataract surgeon for the left eye. patient denies any floaters or flashes of light. AMD The 74 year old female presents for treatment of AMD in the left eye. Patient reports vision stable. No new floaters, flashes, or discomfort. Patient uses Equate Clear Eyes daily. AMD The 74 year old female presents for treatment of AMD in the left eye. (Three of three) Patient reports vision is stable with glasses. Denies current flashes of light or floaters. Ocular pain OD with dry eyes and inner corner nasally can feel scratchy. Patient is using equate clear eyes QAM primarily but will use them throughout the day if eyes are feeling irritated. AMD The 73 year old female presents for management of AMD in the left eye. Patient receiving 2 of 3 Eylea injection at 8 weeks into the left eye today. Patient reports stable vision. Exudative ARMD The 73 year old female presents for evaluation of ARMD in the right and left eyes. Patient denies any vision issues at this time. patient denies any flashes or floaters. Patient denies any ocular pain. AMD The 73 year old patient presents for evaluation of AMD in the right and left eyes. Patient states stable vision since last visit. Patient reports sharp pain with extreme watering and also blood shot. Patient denies floaters, flashes of light and ocular pain. Patient is using dry eye eyedrops and clear eyes. AMD The 73 year old female presents for treatment of AMD in the left eye. Patient states vision stable, patient does states that after last treatment she had a film and discharge in the eye. Patient denies any new onset of flashes, floaters, or ocular pain since last treatment. AMD The 73 year old female presents for treatment of AMD in the right eye and left eye. Patient reports stable vision, no new floaters, flashes of light or eye pain. 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 Patient denies any vision changes at this time. Patient denies any floaters r flashes of light. Patient states that her regular eye doctor told her to use fish oil pills. Patient recently received new glasses. Exudative ARMD The 73 year old female presents for 8 week evaluation of Exudative ARMD in the right and left eyes. Patient denies any vision changes at this time. Patient states no floaters or flashes of light. AMD The 73 year old patient presents for treatment of AMD in the right and left eyes. Patient reports no new visual changes or concerns since her last appointment. Patient denies flashes, floaters, and eye pain. Patient complains of dry eye in both eyes. 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 Patient denies any vision changes . Patient denies any flashes of light. Patient states she does have a occasional floater. AMD The 73 year old patient presents for evaluation of AMD in the right and left eyes. Patient reports no new visual changes or concerns since her last appointment. Patient denies flashes, floaters, and eye pain. AMD The 73 year old female presents for management of AMD in the right and left eyes. PT reports stable vision and no flashes , floaters or ocular pains since last exam. AMD The 72 year old patient presents for treatment of AMD in the right and left eyes. Patient states stable vision since her last visit. No changes or concerns at this time. 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 Patient denies any vision issues at this time. Patient denies any floaters or flashes of light. AMd The 72 year old female presents for evaluation of AMD in the right and left eyes. Pt reports having congestion and a headache after over right eye since last injection. She states she is not taking any thing for it. She states her vision is about the same since last exam, no flashes, floaters or ocular pain reported. 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 Patient states that the vision is stable. Patient states that she has a small little floater since her last injection. Patient denies any flashes of light. Patient states the floater comes and goes. Exudative ARMD The 72 year old female presents for evaluation of Exudative ARMD in the right and left eyes. Patient denies any vision changes at this time. Patient denies any floaters or flashes of light. AMD The 72 year old female presents for evaluation of AMD in the right eye and left eye. Patient reports stable vision. No complaints at this time. macular degeneration followup Th e 72 year old female presents for treatment and management of macular degeneration in the right eye. macular degeneration followup Th e 72 year old female presents for treatment and management of macular degeneration in both eyes. AMD The 72 year old female presents for management of AMD in the right eye. AMD The 72 year old female presents for treatment of AMD in the right eye. IO Eylea OD Pt denies vision changes, flashes of light, floaters and ocular pain. macular degeneration The 72 year old female presents for evaluation of macular degeneration in the right eye and left eye. Patient reports stable vision in both eyes since her last visit. Patient denies ocular pain, flashes of light, or floaters in both eyes. Exudative ARMD The 72 year old female presents for 6 week evaluation of Exudative ARMD in the right and left eyes. Patient states vision is stable. Patient denies any floaters or flashes of light. Exudative ARMD The 71 year old female presents for 6 week evaluation . Patient states that the vision is the same. Patient denies any floaters or flashes of light. macular degeneration The 71 year old female presents for evaluation of macular degeneration in the right eye and left eye with treatment of Eylea. Exudative ARMD The 71 year old female presents for 3 month evaluation . Patient states she got new glasses about 2 weeks ago and believes her vision is better. Exudative ARMD The 71 year old female presents for evaluation of Exudative ARMD in the right and left eyes. macular degeneration The 71 year old female presents for evaluation of macular degeneration in the right eye and left eye. Patient reports no notable changes to her vision since her last visit about 3 months ago. Patient notes she has dryness in the right eye only, but denies ocular pain, flashes of light, or floaters in both eyes. IO- Eylea OS for AMD The 71 year old female presents for IO- Eylea OS for AMD macular degeneration The 71 year old female presents for evaluation of macular degeneration in the right and left eyes. near vision fluctuates The patie nt complains of her near vision fluctuates in the right and left eyes off and on since last visit 3-4 months ago. AMD The 71 year old female presents for evaluation of AMD in both eyes. Injection only Eylea left eye. AMD The 71 year old female presents for evaluation of AMD in both eyes. stable vision The patient stat es stable vision in both eyes, since last visit. It affects both near and distance vision. The symptom is all of the time. In addition, the condition is associated with daily activities and chores. AMD The 70 year old female presents for evaluation of AMD in both eyes. Injection Only, Eylea OS. macular degeneration followup Th e 70 year old female presents for evaluation of macular degeneration followup in both eyes. The patient reports stable vision since last exam 3 months ago. The patient denies flashes and eye pain. AMD The 70 year old female presents for evaluation of AMD in both eyes. Injection Eylea OS stable vision The patient stat es stable vision in both eyes since last visit about 2 months ago.. It affects both near and distance vision. Patient denies eye pain, flashes and floaters. AMD The 70 year old female presents for evaluation of AMD in both eyes. Possible Eylea Injection OD. 3 mo INJ EYL due to exdtve AMD w/ actv chrdl neovas The 70 year old female is present for her 3 mo INJ EYL due to exdtve AMD w/ actv chrdl neovas OS. vision fluctuates The patient st ates vision fluctuates in both eyes. It affects both near and distance vision. The symptom is frequently. Patient denies eye pain and floaters and flashes. AMD The 70 year old female presents for evaluation of AMD in both eyes. Injection only Eylea right eye. AMD The 70 year old female presents for IO Eylea for AMD in the left eye. macular degeneration followup Th e 70 year old female presents for evaluation of macular degeneration followup in the both eyes. The patient reports stable vision since last exam 10 weeks ago. The patient denies eye pain and flashes. 2 week IO EYL INJ for AMD The 69 year old female presents for evaluation of 2 week IO EYL INJ for AMD. Patient reports no visual changes in either eye since last visit. stable vision The patient repo rts stable vision in both eyes since last visit 8 weeks ago. It occurs constantly. It affects both near and distance vision. The symptom is all of the time. The condition is mild. In addition, the condition is associated with daily activities and chores. Patient denies flashes and floaters. macular degeneration The 69 year old female presents for macular degeneration in both eyes. Injection Only of Eylea for AMD The 69 year old female presents for an Injection Only of Eylea for AMD in the left eye. Patient reports no visual changes in either eye. Injection Only of Eylea for AMD The 69 year old female presents for an Injection Only of Eylea for AMD in the right eye. Patient reports no visual changes in either eye since last visit. stable vision The patient repo rts stable vision in both eyes since last visit 6 months ago. It occurs constantly. It affects both near and distance vision. The symptom is all of the time. The condition is mild. In addition, the condition is associated with daily activities. Patient denies flashes. Patient reports an intermittent floater in the right eye x months (unchanged) not affecting the vision. macular degeneration The 69 year old female presents for macular degeneration in both eyes. Injection Only of Eylea for AMD The 69 year old female presents for an Injection Only of Eylea for AMD in the right eye. Patient reports no visual changes in either eye since last visit 4 weeks ago. AMD The 69 year old female presents for AMD in both eyes. stable vision The patient repo rts stable vision in both eyes since last visit about 6 week(s) ago. It occurs constantly. It affects both near and distance vision. In addition, the condition is associated with daily activities and chores. Patient reports intermittent floater (right eye) not affecting the vision. Patient denies flashes. floater The patient repo rts a floater in the right eye x 1 month (unchanged). The onset was sudden. Vision is not affected. The symptom is intermittently. The condition is mild. In addition, the condition is associated with daily activities and chores. Patient denies flashes. Patient reports no visual changes in the left eye. macular degeneration The 69 year old female presents for evaluation of macular degeneration in both eyes. Also, vitreous degeneration in the right eye. macular degeneration followup Th e 69 year old female presents for evaluation of macular degeneration followup in both eyes. The patient reports a 3 week history of new floaters in the right eye which she notices when her eye feels dry. The patient denies eye pain and flashes. macular degeneration followup Th e 68 year old female presents for evaluation of macular degeneration followup in both eyes. The patient reports stable vision since last exam one week ago. The patient denies eye pain and flashes. macular degeneration followup Th e 68 year old female presents for evaluation of macular degeneration followup in both eyes. The patient reports stable vision since last exam 6 weeks ago. The patient denies eye pain and flashes. macular degeneration followup Th e 68 year old female presents for evaluation of macular degeneration in both eyes. The patient reports stable vision since last exam one week ago. The patient denies eye pain and flashes. macular degeneration followup Th e 68 year old female presents for evaluation of macular degeneration followup in both eyes The patient is unaware of any vision changes since last exam one month ago. The patient denies eye pain and flashes. macular degeneration The 68 year old female presents for evaluation of macular degeneration in both eyes. stable vision The patient repo rts stable vision in both eyes since her last visit 4 weeks ago. It occurs constantly. It affects both near and distance vision. The symptom is all of the time. In addition, the condition is associated with daily activities and chores. Patient denies flashes and floaters. macular degeneration The 68 year old female presents for evaluation of macular degeneration in both eyes. stable vision The patient repo rts stable vision in both eyes since her last visit 3 weeks ago. It occurs constantly. It affects both near and distance vision. The symptom is all of the time. In addition, the condition is associated with daily activities and chores. Patient denies flashes and floaters. stable vision The patient repo rts stable vision in both eyes since her last visit 3 weeks ago. It occurs all the time. It affects both near and far vision. The symptom is constant. In addition, the condition is associated with daily activity and chores. Patient denies flashes and floaters. macular degeneration The 68 year old female presents for evaluation of macular degeneration in both eyes. macular degeneration The 68 year old female presents for evaluation of macular degeneration in both eyes. The patient reports stable vision since last exam 3 weeks ago. It affects both near and far vision. The symptom is constant. In addition, the condition is associated with daily activity and chores. Patient denies eye pain and flashes. macular degeneration The 68 year old female presents for evaluation of macular degeneration in both eyes. The patient reports stable vision since last exam 2 weeks ago. It affects both near and far vision. The symptom is constant. In addition, the condition is associated with daily activity and chores. Patient denies eye pain and flashes. macular degeneration The 68 year old female presents for evaluation of macular degeneration in both eyes. The patient is unaware of any vision changes since last exam 3 weeks ago. It affects both near and far vision. The symptom is constant. In addition, the condition is associated with daily activity and chores. Patient denies eye pain and flashes. macular degeneration The 68 year old female presents for evaluation of macular degeneration in both eyes. The patient is unaware of any vision changes since last exam one week ago. It affects both near and far vision. The symptom is constant. In addition, the condition is associated with daily activity and chores. Patient denies eye pain and flashes. grittiness in eyes The patient r eports grittiness in eyes in both eyes x 10 days. The onset was gradual. Vision is not affected. The symptom is intermittent. The condition is mild. In addition, the condition is associated with daily activity and chores. Patient denies flashes and floaters. macular degeneration The 68 year old female presents for evaluation of macular degeneration in both eyes. denies vision changes The patien t on of denies vision changes in the right eye and left eye since last visit about 1 week ago. It affects both near and far vision. In addition, the condition is associated with daily activity and chores. Patient denies flashes, eye pain and floaters. Patient states that it is harder to see when it is cloudy outside. macular degeneration The 68 year old female presents for evaluation of macular degeneration OU. decrease in vision The patient r eports a decrease in vision in the right eye. It started about 3 months ago. The onset was gradual. It affects both near and far vision. The symptom is constant. The condition is severe. In addition, the condition is associated with daily activity and chores. Patient denies flashes and floaters. Patient noticed on Friday during her eye exam that when looking through the right eye she noticed a blank spot when reading the eye chart. Patient reports no visual changes in the left eye. Macular degeneration The 68 year old female referred by Dr. David for possible macular degeneration in the right eye. 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, bi, with actv chrdl neovas Impression/Plan Related to PVD ( posterior vitreous detachment), both eyes Impression/Plan Related 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 Impression/Plan Related to Dry e yes, bilateral Impression/Plan 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, bi, with actv chrdl neovas Impression/Plan Related to Hyper tension Impression/Plan Related to 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, bi, 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 Impression/Plan 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, bi, with actv chrdl neovas Impression/Plan Related to 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, bi, 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 Impression/Plan 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, bi, with actv chrdl neovas Impression/Plan Related to PVD ( posterior vitreous detachment), both eyes Impression/Plan Related to 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, bi, 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 Impression/Plan Related to Dry e yes, bilateral Impression/Plan Related 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 Impression/Plan 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, bi, with actv chrdl neovas Impression/Plan Related to 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, bi, 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 Impression/Plan 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, bi, with actv chrdl neovas Impression/Plan Related to 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, bi, 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 Impression/Plan 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, bi, with actv chrdl neovas Impression/Plan Related to 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, bi, 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 Impression/Plan Related to 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, bi, 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 Impression/Plan 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, bi, with actv chrdl neovas Impression/Plan Related to 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, bi, 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 Impression/Plan Related to Vitre ous degeneration, bilateral Impression/Plan Related to Age-r elated nuclear cataract, bilateral Impression/Plan Related to Hyper tension Impression/Plan Related to 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, bi, 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 Impression/Plan 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, bi, with actv chrdl neovas Impression/Plan 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, bi, with actv chrdl neovas Impression/Plan Related to 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, bi, 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 Impression/Plan 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, bi, with actv chrdl neovas Impression/Plan Related to 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, bi, 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 Impression/Plan Related to 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, bi, 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 Impression/Plan 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, bi, with actv chrdl neovas Impression/Plan Related to 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, bi, 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 Impression/Plan Related to Hyper tension Impression/Plan Related to Age-r elated nuclear cataract, bilateral Impression/Plan Related to Vitre ous degeneration, bilateral Impression/Plan 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, bi, with actv chrdl neovas Impression/Plan 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, bi, with actv chrdl neovas Return in 6 week(s) with Kemar Leos MD for IO EYL OD/OCT OU 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, bi, with actv chrdl neovas Impression/Plan 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, bi, with actv chrdl neovas Return in 2 week(s) with Kemar Leos MD for IO EYL OD/OCT OU 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, bi, with actv chrdl neovas Impression/Plan 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, bi, with actv chrdl neovas Return 6 weeks OCT/I O EYL OD/ No dilation 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, bi, with actv chrdl neovas Impression/Plan 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, bi, with actv chrdl neovas Return in 6 week(s) with Kemar Leos MD for IO EYL OD/OCT OU 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, bi, with actv chrdl neovas Impression/Plan 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, bi, with actv chrdl neovas Return in 3 week(s) with Kemar Leos MD form IO OD/ OCT OU 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, bi, with actv chrdl neovas Impression/Plan 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, bi, with actv chrdl neovas Return in 2 week(s) with Kemar Leos MD for IO EYL OS/OCT OU 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, bi, with actv chrdl neovas Impression/Plan 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, bi, with actv chrdl neovas Impression/Plan 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, bi, with actv chrdl neovas Return in 3 months f or IO EYL OS w/ OCT 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, bi, with actv chrdl neovas Impression/Plan 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, bi, with actv chrdl neovas Impression/Plan 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, bi, with actv chrdl neovas Return in 3 months w ith Kemar Leos MD for follow up, OCT, possible Eylea OD 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, bi, with actv chrdl neovas Impression/Plan 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, bi, with actv chrdl neovas Impression/Plan 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, bi, with actv chrdl neovas Impression/Plan Related to Vitre ous degeneration, bilateral Return in 6 week(s) with Kemar Leos MD for IO Eylea OD / OCT OU Related to Vitreous degeneration, bilateral Return in 3 months w christian Kemar Leos MD for follow up, OCT, possible Eylea OD 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, bi, with actv chrdl neovas Impression/Plan 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, bi, with actv chrdl neovas Return 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, bi, with actv chrdl neovas Impression/Plan 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, bi, with actv chrdl neovas Return in 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, bi, with actv chrdl neovas Impression/Plan 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, bi, with actv chrdl neovas Impression/Plan Related to Essen tial (primary) hypertension Impression/Plan Related to Age-r elated nuclear cataract, bilateral Impression/Plan Related to Vitre ous degeneration, bilateral Impression/Plan 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, bi, with actv chrdl neovas Return in 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, bi, with actv chrdl neovas Impression/Plan 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, bi, with actv chrdl neovas Return in 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, bi, with actv chrdl neovas Impression/Plan Related to Essen tial (primary) hypertension Impression/Plan Related to Age-r elated nuclear cataract, bilateral Impression/Plan Related to Vitre ous degeneration, right eye Impression/Plan 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, bi, with actv chrdl neovas Return in 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, bi, with actv chrdl neovas Impression/Plan 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, bi, with actv chrdl neovas Return in 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, bi, with actv chrdl neovas Impression/Plan Related to Age-r elated nuclear cataract, bilateral Impression/Plan Related to Vitre ous degeneration, right eye Impression/Plan 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, bi, with actv chrdl neovas Impression/Plan Related to Essen tial (primary) hypertension Keep 05/30/21 appt fo r fu, OCT, poss EYL OS, 3 wks later for INJ EYL OD w/OCT 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, bi, with actv chrdl neovas Impression/Plan 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, bi, with actv chrdl neovas Return in 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, bi, with actv chrdl neovas Impression/Plan 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, bi, with actv chrdl neovas Return in 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, bi, with actv chrdl neovas Impression/Plan 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, bi, with actv chrdl neovas Return in 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, bi, with actv chrdl neovas Impression/Plan Related to Essen tial (primary) hypertension Impression/Plan Related to Age-r elated nuclear cataract, bilateral Impression/Plan Related to Vitre ous degeneration, right eye Impression/Plan 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, bi, with actv chrdl neovas Return 12/05/19 for f u, OCT, poss EYL OD (3 mo interval), 3 mo for fu, OCT, poss EYL OS w/OCT 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, bi, with actv chrdl neovas Impression/Plan 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, bi, with actv chrdl neovas Return in 2 week(s) with Jose Manuel Coreas MD for INJ EYL OOS w/OCT, 3 mo for fu, OCT, poss EYL OD 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, bi, with actv chrdl neovas Impression/Plan 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, bi, with actv chrdl neovas Impression/Plan Related to Essen tial (primary) hypertension Impression/Plan Related to Age-r elated nuclear cataract, bilateral Impression/Plan Related to Vitre ous degeneration, right eye Keep 10- for eval/ OCT, poss Eylea OD and 10 weeks for IO/OCT, Eylea OS 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, bi, with actv chrdl neovas - Keep 10- for leonidas l/OCT, poss Eyl OD and 10 weeks IO/Eylea OS/OCT Impression/Plan 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, bi, with actv chrdl neovas 07-11 for IO/Eylea OS /OCT and 3 months for eval/OCT, poss Eylea OD 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, bi, with actv chrdl neovas - Keep 07-11 for IO/O S and 3 months for eval/OCT, poss Eylea OD Impression/Plan 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, bi, with actv chrdl neovas 05-30-2020 for IO/Eyle a OD/OCT and 10 weeks for IO/Eylea OS/OCT 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, bi, with actv chrdl neovas Impression/Plan 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, bi, with actv chrdl neovas Impression/Plan Related to Age-r elated nuclear cataract, bilateral Impression/Plan Related to Vitre ous degeneration, right eye Keep 05-03-[address], Eylea OS and 10 weeks for IO/Eylea OD/OCT Related to 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 - Keep 05-03-2020 for OCT, Eylea OS and 10 weeks for IO/Eylea OD/OCT Impression/Plan Related to Bilat eral exudative age-related 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 Impression/Plan Related to Bilat eral exudative age-related 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 - 03-20 for OD, and t hen 8 weeks for eval/OCT, Eylea OS Impression/Plan Related to Age-r elated nuclear cataract, bilateral Impression/Plan Related to Bilat eral exudative age-related 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 Impression/Plan Related to Vitre ous degeneration, right eye Impression/Plan Related to Vitre ous degeneration, right eye Impression/Plan Related to Bilat eral exudative age-related 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 Impression/Plan Related to Age-r elated nuclear cataract, bilateral Impression/Plan Related to Age-r elated nuclear cataract, bilateral Impression/Plan Related to Bilat eral exudative age-related 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 Impression/Plan Related to Age-r elated nuclear cataract, bilateral Impression/Plan Related to Bilat eral exudative age-related 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 Impression/Plan Related to Age-r elated nuclear cataract, bilateral Impression/Plan Related to Bilat eral exudative age-related 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 Impression/Plan Related to Bilat eral exudative age-related 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 Impression/Plan Related to Age-r elated nuclear cataract, bilateral Impression/Plan Related to Age-r elated nuclear cataract, bilateral Impression/Plan Related to Bilat eral exudative age-related 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 Impression/Plan Related to Bilat eral exudative age-related 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 Impression/Plan Related to Age-r elated nuclear cataract, bilateral Impression/Plan Related to Bilat eral exudative age-related 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 Impression/Plan Related to Age-r elated nuclear cataract, bilateral Impression/Plan Related to Age-r elated nuclear cataract, bilateral Impression/Plan Related to Bilat eral exudative age-related 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 Impression/Plan Related to Age-r elated nuclear cataract, bilateral Impression/Plan Related to Bilat eral exudative age-related 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 Impression/Plan Related to Age-r elated nuclear cataract, bilateral Impression/Plan Related to Retin al hemorrhage, bilateral Impression/Plan Related to Bilat eral exudative age-related 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 Impression/Plan Related to Age-r elated nuclear cataract, bilateral Impression/Plan Related to Retin al hemorrhage, bilateral Impression/Plan Related to Bilat eral exudative age-related 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 Impression/Plan Related to Age-r elated nuclear cataract, bilateral Impression/Plan Related to Retin al hemorrhage, bilateral Impression/Plan Related to Bilat eral exudative age-related 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 Impression/Plan Related to Age-r elated nuclear cataract, bilateral Impression/Plan Related to Bilat eral exudative age-related 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 Impression/Plan Related to Retin al hemorrhage, bilateral [facility] Work Phone: Consult note* Clinical Note Date No Information [facility] Work Phone: Discharge summary* Clinical Note Date No Information [facility] Work Phone: Evaluation + Plan note No data available for this section [facility] [place] History and physical note* Clinical Note Date No Information [facility] Work Phone: Hospital Discharge instructions No data available for this section [facility] [place] Progress note No data available for this section [facility] [place] Progress note* Clinical Note Date No Information [facility] Work Phone: Reason for referral (narrative)* Reason For Referral No Information [facility] Work Phone: Summary Purpose Family History Family Member Type Diagnosis Age At Onset Problem (finding) Family history of Diabe ness mellitus Problem (finding) Family history of hyper tension Problem (finding) Family history of catar act Advance Directives Directive Yes / No Effective Date File Name No Information Chief Complaint and Reason for Visit From encounter dated '06/21/2025 10:40'. Non Exudative ARMD (chief complaint). 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 patient states that she does have a appointment with the cataract surgeon for the left eye. patient denies any floaters or flashes of light. Additional Source Comments INFORMATION SOURCE (unrecogn ized section and content) DATE CREATED AUTHOR 01/19/2023 [facility] DATE CREATED AUTHOR AUTHOR'S ORGANIZ ATION 06/23/2025 [facility] DATE CREATED AUTHOR AUTHOR'S ORGANIZ ATION 06/26/2025 [facility] Patient Care team informatio n (unrecognized section and content) Name Effective Dates (start - stop) S tatus No Information FOR RECORDS PERTAINING TO PATIENTS WHO ARE [...] BE BASED ON THE PRIMARY CLINICAL RECORDS. [facility] [facility]. provides no warranty or guarantee of the accuracy or completeness of information in this document.
== END 2025-07-06 12:04 | disposition home or self-care (01) ==
LOC: PST 12:03
PROVIDERS: PCP Family Medicine; Visit Provider Surgery
DX: Z01.818 Encounter for other preprocedural examination (principal); Z80.0 Family history of malignant neoplasm of digestive organs

== ENCOUNTER 2025-07-20 07:21 | Day surgery (SDC) | payer MEDICARE, OTHER, SELFPAY ==
--- NOTE | 2025-07-20 | OP_ITS ---
OPERATION DATE: 07/20/2025 PREOPERATIVE DIAGNOSIS: Personal history of colon polyps. POSTOPERATIVE DIAGNOSIS: 8 mm sessile polyp in the proximal sigmoid, lower descending colon at 55 cm, severe sigmoid diverticulosis. PROCEDURE: Colonoscopy to cecum with cold snare polypectomy x1. SURGEON: Kade Valverde M.D. ANESTHESIA: Monitored anesthesia care. ESTIMATED BLOOD LOSS: Less than 1 mL. INDICATIONS AND CONSENT: Patient is a 74-year-old female with a personal history of colon polyps. She did have a 1.5 cm tubular adenoma removed in 2019 from the ascending colon. She now presents for surveillance colonoscopy. Indications, risks, benefits, alternatives of proceeding with colonoscopy were explained extensively to the patient, including the risks of bleeding, colon perforation or anesthetic complications. All of her questions were answered. Informed consent was obtained. PROCEDURE: Patient brought to the operating room, placed in the left lateral decubitus position. Monitored anesthesia care was provided. Rectal exam was performed which showed no masses or blood. The scope was inserted into the anal canal. Under direct visualization was advanced. With the aid of abdominal compression, it was advanced to the cecum where cecal markings were clearly identified. There was noted to be a good prep with some liquid stool throughout the colon that was irrigated clear. Upon withdrawal of the scope, mucosal surfaces were carefully examined. There were no mass lesions or inflammatory changes. Within the distal descending colon, proximal sigmoid colon at 55 cm from the anal verge, there was noted to be a flat, 8 mm polyp with some superficial irritation. It was around a colonic fold. This was removed in a piecemeal fashion with cold snare with good hemostasis. There were no other polyps noted. There was severe sigmoid diverticulosis, without inflammatory changes or scarring. The scope was retroflexed in the anal canal. There was no significant hemorrhoidal disease. The scope was then withdrawn. Patient tolerated procedure well, was sent to recovery room in good condition. Follow up surveillance colonoscopy will likely be in 1-3 years, depending on the pathology report. CC: Eddie Sandoval M.D. SAYRA
--- OUTSIDE RECORDS SUMMARY | 2025-07-20 07:24 | XMS_ITS | CCD ---
Author Organization [facility] CliniSyde Care Team Providers Care Nightclub Manager Name Role Phone HAN ., DR [...] Unavailable HOY ., DR HERRMANN Attending Unavailable SalvatoreyMontez Primary Care Physician Kade [...] Iodine Containting Drugs) Drug allergy (disorder) [facility] Repository (1 source) Contrast media; Translations: [Contrast Dye] Propensity to adverse reactions (disorder) [facility] Repository (1 source) Contrast media; Translations: [DYE] [...] sources) Start: 06-21-2025 take 1 capsule by [facility] twice daily Fish Oil 1200 mg oral [...] yet, please contact Health Information Management at [phone] to get signed up today. Language Information Language assistance services are available as needed. Normal [facility] Result Letter Officeon 05-25 Result Letter Office Result Letter Offic e May 25, 2025 ALBANIA DURAN [address] [place] [address] : 1950 Dear [place], Our records show you are due to repeat a colonoscopy due to polyp found during colonoscopy completed in 2019. Please call our office to schedule consultation. Sincerely, [facility] General Surgery [phone] Normal [facility] OCC BLD IMMUNO SCREENon 12-26 OCCULT BLOOD Negative Normal NEGATIVE [facility] Comment on above: Performed By: #### O BSCRN #### [facility] [address] [place] [address] Dr. Pascual Pittman BNPon 01-14-2023 Natriuretic peptide B (Bld) [Mass/Vol] 44.0 pg/mL Normal <=900.0 [facility] Comment on above: Performed By: #### F T3, BNP, LIPID, TSH, T4, CMP ####[facility] [address] [place], [place] [address]YhDr. Pascual Pittman CBC AUTO DIFFon 01-14-2023 BASO # 0.0 103/ul Normal 0.0-0.1 [facility] Comment on above: Performed By: #### C BC #### [facility] [address] [address] [address] Pascual Pittman Basophils/100 WBC (Bld) 0.6 % Normal 0.2-2.0 [facility] Comment on above: Performed By: #### C BC #### [facility] [address] [place] [address] Dr. Pascual Pittman EO # 0.1 103/ul Normal 0.0-0.7 [facility] Comment on above: Performed By: #### C BC #### [facility] [address] [place] [address] Dr. Pascual Pittman Eosinophils/100 WBC (Bld) 1.1 % Normal 0.9-7.0 [facility] Comment on above: Performed By: #### C BC #### [facility] [address] [place] [address] Dr. Pascual Pittman Erythrocyte distribution width (RBC) [Ratio] 14.8 % Normal 11.0-15.0 [facility] Comment on above: Performed By: #### C BC #### [facility] [address] [place] [address] Dr. Pascual Pittman Hematocrit (Bld) [Volume fraction] 43.4 % Normal 36.0-48.0 [facility] Comment on above: Performed By: #### C BC #### [facility] [address] [place] [address] Dr. Pascual Pittman Hemoglobin (Bld) [Mass/Vol] 13.8 g/dL Normal 12.0-16.0 [facility] Comment on above: Performed By: #### C BC #### [facility] [address] [place] [address] Dr. Pascual Pittman IG # 0.02 10e3/ul Normal 0.00-0.03 [facility] Comment on above: Performed By: #### C BC #### [facility] [address] [place] [address] Dr. Pascual Pittman IG % 0.3 % Normal 0.0-0.5 [facility] Comment on above: Performed By: #### C BC #### [facility] [address] [place] [address] Dr. Pascual Pittman LYMPH # 2.1 103/ul Normal 1.2-3.8 [facility] Comment on above: Performed By: #### C BC #### [facility] [address] [place] [address] Dr. Pascual Pittman Lymphocytes/100 WBC (Bld) 32.3 % Normal 20.5-60.0 [facility] Comment on above: Performed By: #### C BC #### [facility] [address] [place] [address] Dr. Pascual Pittman MANUAL DIFF REQ NO Normal [facility] Comment on above: Performed By: #### C BC #### [facility] [address] [place] [address] Dr. Pascual Pittman MCH (RBC) [Entitic mass] 28.0 pg Normal 26.7-34.0 [facility] Comment on above: Performed By: #### C BC #### [facility] [address] [place] [address] Dr. Pascual Pittman MCHC (RBC) [Mass/Vol] 31.8 g/dL Normal 29.9-35.2 [facility] Comment on above: Performed By: #### C BC #### [facility] [address] [place] [address] Dr. Pascual Pittman MCV (RBC) [Entitic vol] 88.0 fL Normal 81.0-99.0 [facility] Comment on above: Performed By: #### C BC #### [facility] [address] [place] [address] Dr. Pascual Pittman MONO # 0.5 103/ul Normal 0.3-0.8 [facility] Comment on above: Performed By: #### C BC #### [facility] [address] [place] [address] Dr. Pascual Pittman Monocytes/100 WBC (Bld) 7.0 % Normal 1.7-12.0 [facility] Comment on above: Performed By: #### C BC #### [facility] [address] [place] [address] Dr. Pascual Pittman NEUT # 3.8 103/ul Normal 1.4-6.5 [facility] Comment on above: Performed By: #### C BC #### [facility] [address] [address] [address] Pascual Pittman Neutrophils/100 WBC (Bld) 58.7 % Normal 43.0-75.0 [facility] Comment on above: Performed By: #### C BC #### [facility] [address] [address] [address] Pascual Pittman Platelet mean volume (Bld) [Entitic vol] 9.5 fL Normal 9.5-13.5 [facility] Comment on above: Performed By: #### C BC #### [facility] [address] [address] [address] Pascual Pittman PLT 318 103/ul Normal 150-450 [facility] Comment on above: Performed By: #### C BC #### [facility] [address] [address] [address] Pascual Pittman RBC 4.93 106/ul Normal 4.20-5.40 [facility] Comment on above: Performed By: #### C BC #### [facility] [address] [address] [address] Pascual Pittman WBC 6.5 103/ul Normal 4.0-11.0 [facility] Comment on above: Performed By: #### C BC #### [facility] [address] [address] [address] Pascual Pittman FREE T3on 01-14-2023 FREE T3 2.78 pg/mlL Normal 2.18-3.98 [facility] Comment on above: Performed By: #### F T3, BNP, LIPID, TSH, T4, CMP ####[facility] [address] [address]Dr. Pascual Pittman GLYCOHEMOGLOBIN A1Con 2022 ADA RECOMMENDATION SEE BELOW Normal [facility] Comment on above: Result Comment: ADA RECOMMENDED LIMIT 4.0 - 6.0 ADA THERAPEUTIC TARGET < 7.0 ACTION SUGGESTED > 7.0 Performed By: #### A 1C ####[facility] [address] [address]Dr. Pascual Pittman Glucose [Mass/Vol] 123 mg/dL Normal [facility] Comment on above: Performed By: #### A 1C ####[facility] [address] [id number]. Pascual Pittman HbA1c (Bld) [Mass fraction] 5.9 % Normal 4.5-6.2 [facility] Comment on above: Performed By: #### A 1C ####[facility] [address] [id number]. Pascual Pittman LIPID PROFILEon 01-14-2023 CHOL-HDL RATIO NORM SEE BELOW Normal [facility] Comment on above: Result Comment: 3.3 - 4.4 LOW RISK 4.4 - 7.1 AVERAGE RISK 7.1 - 11.0 MODERATE RISK >11.0 HIGH RISK Performed By: #### F T3, BNP, LIPID, TSH, T4, CMP ####[facility] [address] [address]Dr. Pascual Pittman Cholesterol [Mass/Vol] 190 mg/dL Normal <=200 [facility] Comment on above: Performed By: #### F T3, BNP, LIPID, TSH, T4, CMP ####[facility] [address] [address]Dr. Pascual Pittman Cholesterol in HDL [Mass/Vol] 56 mg/dL Normal 40-60 [facility] Comment on above: Performed By: #### F T3, BNP, LIPID, TSH, T4, CMP ####[facility] [address] [id number]. Pascual Pittman Cholesterol in LDL [Mass/Vol] 97.8 mg/dL Normal [facility] Comment on above: Performed By: #### F T3, BNP, LIPID, TSH, T4, CMP ####[facility] [address] [id number]. Pascual Pittman Cholesterol.total/Cho lesterol in HDL [Mass ratio] 3.4 {ratio} Normal [facility] Comment on above: Performed By: #### F T3, BNP, LIPID, TSH, T4, CMP ####[facility] [address] [id number]. Pascual Pittman HDL NORMAL > or = 60 mg/dl - LO W CARDIOVASCULAR RISK <40 mg/dl - HIGH CARDIOVASCULAR RISK Normal [facility] Comment on above: Performed By: #### F T3, BNP, LIPID, TSH, T4, CMP ####[facility] [address] [address]DrSharonda Pittamn LDL CALC NORMAL SEE BELOW Normal [facility] Comment on above: Result Comment: <100 mg/dl OPTIMAL 100 - 129 mg/dl NEAR OR ABOVE OPTIMAL 130 - 159 mg/dl BORDERLINE HIGH 160 - 189 mg/dl HIGH >190 mg/dl VERY HIGH Performed By: #### F T3, BNP, LIPID, TSH, T4, CMP ####[facility] [address] [address]DrSharonda Pittman Triglyceride [Mass/Vol] 181 mg/dL Critically high <=150 [facility] Comment on above: Performed By: #### F T3, BNP, LIPID, TSH, T4, CMP ####[facility] [address] [address]DrSharonda Pittman VLDL CALC 36.2 mg/dL Normal [facility] Comment on above: Performed By: #### F T3, BNP, LIPID, TSH, T4, CMP ####[facility] [address] [address]Dr. Pascual Pittman PROF 14(COMP METB)on 023 Albumin [Mass/Vol] 3.8 g/dL Normal 3.4-5.0 [facility] Comment on above: Performed By: #### F T3, BNP, LIPID, TSH, T4, CMP #### [facility] [address] [place] [address] Dr. Pascual Pittman Albumin/Globulin [Mass ratio] 1.0 {ratio} Normal [facility] Comment on above: Performed By: #### F T3, BNP, LIPID, TSH, T4, CMP #### [facility] [address] [address] [address] Pascual Pittman ALP [Catalytic activity/Vol] 101 U/L Normal 46-116 [facility] Comment on above: Performed By: #### F T3, BNP, LIPID, TSH, T4, CMP #### [facility] [address] [place] [address] Dr. Pascual Pittman ALT [Catalytic activity/Vol] 28 U/L Normal 14-59 [facility] Comment on above: Performed By: #### F T3, BNP, LIPID, TSH, T4, CMP #### [facility] [address] [place] [address] Dr. Pascula Pittman Anion gap [Moles/Vol] 11.3 mmol/L Normal [facility] Comment on above: Performed By: #### F T3, BNP, LIPID, TSH, T4, CMP #### [facility] [address] [place] [address] Dr. Pascual Pittman AST [Catalytic activity/Vol] 19 U/L Normal 15-37 [facility] Comment on above: Performed By: #### F T3, BNP, LIPID, TSH, T4, CMP #### [facility] [address] [place] [address] Dr. Pascual Pittman Bilirubin [Mass/Vol] 0.3 mg/dL Normal 0.2-1.0 [facility] Comment on above: Performed By: #### F T3, BNP, LIPID, TSH, T4, CMP #### [facility] [address] [place] [address] Dr. Pascual Pittman Calcium [Mass/Vol] 10.0 mg/dL Normal 8.5-10.1 [facility] Comment on above: Performed By: #### F T3, BNP, LIPID, TSH, T4, CMP #### [facility] [address] [place] [address] Dr. Pascual Pittman Chloride [Moles/Vol] 102 mmol/L Normal 98-107 [facility] Comment on above: Performed By: #### F T3, BNP, LIPID, TSH, T4, CMP #### [facility] [address] [place] [address] Dr. Pascual Pittman CO2 [Moles/Vol] 30.0 mmol/L Normal 21.0-32.0 [facility] Comment on above: Performed By: #### F T3, BNP, LIPID, TSH, T4, CMP #### [facility] [address] [address] [address] Pascual Pittman Creatinine [Mass/Vol] 0.75 mg/dL Normal 0.55-1.02 [facility] Comment on above: Performed By: #### F T3, BNP, LIPID, TSH, T4, CMP #### [facility] [address] [address] [address] Pascual Pittman EGFR-AF NORTH [place]OREAN >60 Normal >=60 [facility] Comment on above: Performed By: #### F T3, BNP, LIPID, TSH, T4, CMP #### [facility] [address] [address] [address] Pascual Pittman EGFR-NON AF [place]TH [place]OREAN >60 Normal >=60 [facility] Comment on above: Performed By: #### F T3, BNP, LIPID, TSH, T4, CMP #### [facility] [address] [place] [address] Dr. Pascual Pittman Globulin (S) [Mass/Vol] 3.8 g/dL Normal [facility] Comment on above: Performed By: #### F T3, BNP, LIPID, TSH, T4, CMP #### [facility] [address] [place] [address] Dr. Pascual Pittman Glucose [Mass/Vol] 115 mg/dL Critically high 74-106 [facility] Comment on above: Performed By: #### F T3, BNP, LIPID, TSH, T4, CMP #### [facility] [address] [place] [address] Dr. Pascual Pittman Potassium [Moles/Vol] 4.3 mmol/L Normal 3.5-5.1 [facility] Comment on above: Performed By: #### F T3, BNP, LIPID, TSH, T4, CMP #### [facility] [address] [place] [address] Dr. Pascual Pittman Protein [Mass/Vol] 7.6 g/dL Normal 6.4-8.2 [facility] Comment on above: Performed By: #### F T3, BNP, LIPID, TSH, T4, CMP #### [facility] [address] [place] [address] Dr. Pascual Pittman Sodium [Moles/Vol] 139 mmol/L Normal 136-[address] [facility] Comment on above: Performed By: #### F T3, BNP, LIPID, TSH, T4, CMP #### [facility] [address] [id number] Pascual Pittman Urea nitrogen [Mass/Vol] 16.0 mg/dL Normal 7.0-18.0 [facility] Comment on above: Performed By: #### F T3, BNP, LIPID, TSH, T4, CMP #### [facility] [address] [address] [address] Pascual Pittman Urea nitrogen/Creatinine [Mass ratio] 21.3 mg/mg Normal [facility] Comment on above: Performed By: #### F T3, BNP, LIPID, TSH, T4, CMP #### [facility] [address] [address] [address] Pascual Pittman T4on 01-14-2023 T4 [Mass/Vol] 11.10 ug/dL Normal 4.80-13.90 [facility] Comment on above: Performed By: #### F T3, BNP, LIPID, TSH, T4, CMP #### [facility] [address] [id number] Pascual Pittman TSHon 01-14-2023 TSH 0.274 uIU/mL Critically low 0.358-3.740 [facility] Comment on above: Performed By: #### F T3, BNP, LIPID, TSH, T4, CMP ####[facility] [address] [place], [place] [address]IcDr. Pascual Pittman VITAMIN D 25 OHon 01-14-2023 VIT D 25-OH 44.5 ng/mL Normal [facility] Comment on above: Performed By: #### V ITAD #### [facility] [address] [id number] Pascual Pittman VIT D RANGES SEE BELOW Normal [facility] Comment on above: Result Comment: <20 ng/mL Vit D deficient 20 - <30 ng/mL Vit D insufficient 30 - 100 ng/mL Vit D sufficient >100 ng/mL Potential Toxicity Performed By: #### V ITAD #### [facility] [address] [address] [address] Pascual Pittman MG MAMM SCREEN 3D VALERIANO CADon 10-10-2022 MG MAMM SCREEN 3D VALERIANO CAD Patient: ALBANIA DURAN Exam Date: 10/10/2022 : 1950 Gender:F Ordering : DR MONTEZ SANDOVAL . Admission #: [id number] Family : Order #: [id number] CLICK HERE TO VIEW EXAM RADIOLOGY REPORT [...] throat cancer at age 56. LOCATION: [facility] BREAST COMPOSITION: Heterogeneously dense,which may obscure [...] MD on 10/10/2022 at 10:44 Normal [facility] XR DEXA BONE DENSITYon 10-10 XR [...] MJ PATTERSON Date: 2022-10-10 12:58 Normal [facility] Covid-19 PCR (CVDTBH)on 09-24 SARS-CoV-2 (COVID-19) RNA MILTON+probe Ql (Unsp spec) Not detected Normal NOT DETECTED [facility] Comment on above: Result Comment: This test is not yet approved or cleared by the [place] FDA. When there are no FDA-approved or cleared tests available, and other criteria are met, FDA can make tests available under an emergency access mechanism called an Emergency Use Authorization (EUA). The EUA for this test is supported by the Facilities Project Manager of Health and Human Service's (HHS's) declaration [...] SARS-CoV-2. Performed By: #### C VDTBH #### [facility] [address] [place] [address] Dr. Pascual Pittman INFLUENZA A AND B AGon 10-04 [facility] SEE BELOW Normal [facility] Comment on above: Result Comment: Nega tive for Flu A protein angiten. Infection due to Flu A cannot be ruled out. Flu A angiten in the sample may be below the detection limit of the test. Performed By: #### I NFLUAB #### [facility] [address] [place] [address] Dr. Pascual Pitt[facility] Normal [facility] Comment on above: Result Comment: Nega tive for Flu B protein antigen. Infection due to Flu B cannot be ruled out. Flu B antigen in the sample may be below the detection limit of the test. Performed By: #### I NFLUAB #### [facility] [address] [place] [address] Dr. Pascual Pittman INFLUENZA A AG Negative Normal NEGATIVE SEE COMMENT [facility] Comment on above: Performed By: #### I NFLUAB #### [facility] [address] [place] [address] Dr. Pascual Pittman INFLUENZA B AG Negative Normal NEGATIVE SEE COMMENT [facility] Comment on above: Performed By: #### I NFLUAB #### [facility] [address] [place] [address] Dr. Pascual Pittman INTERNAL CONTROLS Within Normal Limits Normal Wi thin Normal Limits [facility] Comment on above: Performed By: #### I NFLUAB #### [facility] [address] [place] [address] Dr. Pascual Pittman THYROIDon 05-14-2022 US THYROID [...] by: MJ PATTERSON Date: 2022-05-14 16:18 Normal [facility] Vital Signs Date Time Vital Sign Value Performing Clinician Faci lity 06-21-2025 11:20-0400 Diastolic blood pressure 60 mm[Hg] Bharat Fabian MD [facility] 06-21-2025 11:20-0400 Systolic blood pressure 89 mm[Hg] Bharat MARINOP [facility] Encounters Encounter Date Encounter Type Care Provider Facility Start: 06-21-2025 End: 06-21-2025 ambulatory Kade YOUNG Facility:[facility] Start: 06-21-2025 End: 06-21-2025 Patient encounter procedure Kade YOUNG [facility] General Surgery Al Start: 06-21-2025 End: 06-21-2025 Encounter identifier Bharat Al Shweiki Work Phone: [facility] Start: 06-21-2025 ambulatory Bharat Al Shweiki [facility] Start: 03-29-2025 End: 03-29-2025 Encounter identifier Bigg Steve Johnston Jr Work Phone: [facility] Start: 03-29-[address]25 [address] Bigg Johnston Jr [facility] Start: 12-28-2024 End: 12-28-2024 Encounter identifier Bharat Al Shweiki Work Phone: [facility] Start: 12-28-2024 ambulatory Bharat Al Shweiki [facility] Start: 10-19-2024 End: 10-19-2024 Encounter identifier Bharat Al Shweiki Work Phone: [facility] Start: 10-19-2024 ambulatory Bharat Al Shweiki [facility] Start: 10-12-2024 End: 10-12-2024 Office outpatient visit 15 minutes Bharat Al Shweiki Work Phone: [facility] Start: 10-12-2024 ambulatory Bharat Al Shweiki [facility] Start: 08-24-2024 End: 08-24-2024 Encounter identifier Bharat Al Shweiki Work Phone: [facility] Start: 08-24-2024 ambulatory Bharat Al Shweiki [facility] Start: 07-27-2024 End: 07-27-2024 Office outpatient visit 25 minutes Bharat Al Shweiki Work Phone: [facility] Start: 07-27-2024 ambulatory Bharat Al Shweiki [facility] Start: 05-18-2024 End: 05-18-2024 Office outpatient visit 25 minutes May El Rashedy Work Phone: [facility] Start: 05-06-2024 End: 05-06-2024 Office outpatient visit 25 minutes May El Rashedy Work Phone: [facility] Start: 03-18-2024 End: 03-18-2024 Encounter identifier May El Rashedy Work Phone: [facility] Start: 02-26-2024 End: 02-26-2024 Encounter identifier May El Rashedy Work Phone: [facility] Start: 01-22-2024 End: 01-22-2024 Encounter identifier May El Rashedy Work Phone: [facility] Start: 12-25-2023 End: 12-25-2023 Encounter identifier May El Rashedy Work Phone: [facility] Start: 11-27-2023 End: 11-27-2023 Encounter identifier May El Rashedy Work Phone: [facility] Start: 10-22-2023 End: 10-22-2023 Office outpatient visit 25 minutes Daxamed M Alkaliby Work Phone: [facility] Start: 09-24-2023 End: 09-24-2023 Encounter identifier Ahmed M Alkaliby Work Phone: [facility] Start: 08-27-2023 End: 08-27-2023 Encounter identifier Ahmed M Alkaliby Work Phone: [facility] Start: 07-30-2023 End: 07-30-2023 Encounter identifier Ahmed M Alkaliby Work Phone: [facility] Start: 07-02-2023 End: 07-02-2023 Office outpatient visit 25 minutes Ahmed M Alkaliby Work Phone: [facility] Start: 06-11-2023 End: 06-11-2023 Encounter identifier Ahmed M Alkaliby Work Phone: [facility] Start: 04-16-2023 End: 04-16-2023 Encounter identifier Kemar Carty Alkaliby Work Phone: [facility] [place] Start: 04-02-2023 End: 04-02-2023 Encounter identifier Kemar Carty Alkaliby Work Phone: [facility] [place] Start: 03-05-2023 End: 03-05-2023 Encounter identifier Kemar [...] Encounter identifier Kemar Ahmadiby Work Phone: [facility] [place] Start: 06-12-2022 End: 06-12-2022 Encounter identifier Kemar Leos Work Phone: [facility] Start: 05-14-2022 End: 05-15-[address] MONTEZ SANDOVAL . Facility: Start: 03-20-2022 End: 03-20-2022 Encounter identifier Kemar Leos Work Phone: [facility] [place] Start: 03-13-2022 End: 03-13-2022 Encounter identifier Kemar Ahmadiby Work Phone: [facility] [place] Start: 12-19-2021 End: 12-19-2021 Encounter identifier Kemar Leos Work Phone: [facility] [place] Start: 12-12-2021 End: 12-12-2021 Office outpatient visit 25 minutes Kemar Leos Work Phone: [facility] Start: 09-26-2021 End: 09-26-2021 Encounter identifier Jose Manuel Coreas Work Phone: [facility] [place] Start: 09-19-2021 End: 09-19-2021 Encounter identifier Jose Manuel Coreas Work Phone: [facility] Start: 06-20-2021 End: 06-20-2021 Encounter identifier Jose Manuel Moralesbs Work Phone: [facility] Start: 05-30-2021 End: 05-30-2021 Office outpatient visit 25 minutes Jose Manuel Coreas Work Phone: [facility] Start: 03-21-2021 End: 03-21-2021 Encounter identifier Jose Manuel Pizano Joss Work Phone: [facility] Start: 03-07-2021 End: 03-07-2021 Encounter identifier Jose Manuel Pizano Joss Work Phone: [facility] Start: 12-20-2020 End: 12-20-2020 Encounter identifier Jose Manuel Coreas Work Phone: [facility] [place] Start: 12-06-2020 End: 12-06-2020 Encounter identifier Jose Manuel Coreas Work Phone: [facility] [place] Start: 09-19-2020 End: 09-19-2020 Encounter identifier Jose Manuel Coreas Work Phone: [facility] [place] Start: 09-05-2020 End: 09-05-2020 Office outpatient visit 15 minutes Jose Manuel Coreas Work Phone: [facility] Start: 07-11-2020 End: 07-11-2020 Encounter identifier Jose Manuel Coreas Work Phone: [facility] [place] Start: 05-30-2020 End: 05-30-2020 Encounter identifier Jose Manuel Coreas Work Phone: [facility] [place] Start: 05-03-2020 End: 05-03-2020 Office outpatient visit 15 minutes Jose Manuel Coreas Work Phone: [facility] Start: 03-20-2020 End: 03-20-2020 Encounter identifier Jose Manuel Coreas Work Phone: [facility] [place] Start: 02-21-2020 End: 02-21-2020 Encounter identifier Jose Manuel Coreas Work Phone: [facility] [place] Start: 01-10-2020 End: 01-10-2020 Encounter identifier Valery Pizano Orgel Work Phone: [facility] [place] Start: 12-27-2019 End: 12-27-2019 Encounter identifier Valery Jerica Orgel Work Phone: [facility] Start: 11-08-2019 End: 11-08-2019 Encounter identifier Valery K Orgel Work Phone: [facility] Start: 11-01-2019 End: 11-01-2019 Encounter identifier Valery Jerica Orgel Work Phone: [facility] Start: 09-20-2019 End: 09-20-2019 Encounter identifier Valery K Orgel Work Phone: [facility] [place] Start: 09-13-2019 End: 09-13-2019 Encounter identifier Valery Jerica Orgel Work Phone: [facility] [place] Start: 08-09-2019 End: 08-09-2019 Encounter identifier Valery Jerica Orgel Work Phone: [facility] [place] Start: 07-12-2019 End: 07-12-2019 Encounter identifier Valery Jerica Orgel Work Phone: [facility] [place] Start: 06-21-2019 End: 06-21-2019 Encounter identifier Valery K Orgel Work Phone: [facility] [place] Start: 05-31-2019 End: 05-31-2019 Encounter identifier Valery Jerica Orgel Work Phone: [facility] [place] Start: 05-10-2019 End: 05-10-2019 Encounter identifier Valery Jerica Orgel Work Phone: [facility] [place] Start: 04-26-2019 End: 04-26-2019 Encounter identifier Valery Jerica Orgel Work Phone: [facility] [place] Start: 04-05-2019 End: 04-05-2019 Encounter identifier Valery Jerica Orgel Work Phone: [facility] [place] Start: 03-29-2019 End: 03-29-2019 Encounter identifier Valery Jerica Orgel Work Phone: [facility] [place] Start: 03-01-2019 End: 03-01-2019 Encounter identifier Valery Jerica Orgel Work Phone: [facility] [place] Start: 02-22-2019 End: 02-22-2019 Office outpatient new 45 minutes Valery Jerica Orgel Work Phone: [facility] [place] Procedures Date Procedure Procedure Detail Performing Clinician [...] 09-20-2019 End: 09-20-2019 Computerized ophthalmic imaging retina Bharatrbobi Fabian MD Start: 09-20-2019 End: 09-20-2019 Intravitreal [...] Vaginal hysterectomy Kade HANNAH Comment on above: [id number] Plan of Treatment Date Care Activity Detail [...] (COVID-19 ) Ad26 vaccine, recombinant Kade GERRIFatou [facility] [place] Payers Date Payer Category Payer Medicare [id number] 1960 Medicare [id number] 1960 Self-pay 1959 Unknown [id number] 1949 Unknown [id number] 2.16.84 0.1.507816.3.579.2.593 1949 Unknown [id number] 2.16.84 0.1.464433.3.579.2.593 1949 Unknown [id number] 2.16.84 0.1.248237.3.579.2.593 1949 Unknown [id number] 2.16.84 0.1.720424.3.579.2.593 1949 Unknown [id number] 2.16.84 0.1.688531.3.579.2.593 1949 Unknown [id number] 2.16.84 0.1.881445.3.579.2.593 1949 Unknown [id number] 2.16.8 40.1.364772.3.579.2.727 1949 Unknown [id number] 2.16.84 0.1.753129.3.579.2.1347 1949 Unknown [id number] 2.16.84 0.1.497005.3.579.2.1347 1949 Unknown [id number] 2.16.84 0.1.762307.3.579.2.1347 1949 Unknown [id number] 2.16.84 0.1.102238.3.579.2.1347 1949 Unknown [id number] 2.16.84 0.1.903873.3.579.2.1347 1949 Unknown [id number] 2.16.840 .1.868224.3.579.2.1347 1949 Unknown [id number] 2.16.840 .1.548618.3.579.2.1347 Private Health Insurance 6ed [id number] Social History Date Type Detail Facility Start: 06-21-2025 Tobacco smoking status Ex-smoker (finding) [facility] Comment on above: quit 09/23/2019, smo ked roughly 56 years Tobacco smoking status Never [facility] Comment on above: quit 09/23/2019, smo ked roughly 56 years Sexual Orientation [facility] Sex Assigned At Female [facility] Sex Female (finding) [facility] Start: 06-21-2025 Tobacco smoking status NHIS [...] of colon: Mother. (more content not included)... 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 Bilateral [facility] Work Phone: 1(348) 309-662707-29-2025 History of Present illness Narrative* Encounter Date [...] possible macular degeneration in the right eye. [facility] Work Phone: 1(173) 712-398807-29-2025 Instructions* Date Instruction Additional Infor matjatin Impression/Plan Related to Exuda tive age-rel mclr [...] note No data available for this section [facility] [place] History and physical note* Clinical Note Date No Information [facility] Work Phone: Hospital Discharge instructions No data available for this section [facility] [place] Progress note No data available for this section [facility] [place] Progress note* Clinical Note Date No Information [...] DATE CREATED AUTHOR AUTHOR'S ORGANIZ ATION 06/23/2025 [facility] DATE CREATED AUTHOR AUTHOR'S ORGANIZ ATION 06/26/2025 [facility] Patient Care team informatio n (unrecognized section [...] BE BASED ON THE PRIMARY CLINICAL RECORDS. [employer] [facility]. provides no warranty or guarantee of the accuracy or completeness of information in this document.
[2025-07-20 07:46] VITALS: BP 94/65; PULSE 74; TEMP 36.1; O2SAT 99; BMI 29.7
[2025-07-20 09:26] VITALS: BP 129/65; PULSE 74; TEMP 36.2; O2SAT 99
[2025-07-20 09:40] VITALS: BP 105/61; PULSE 72; O2SAT 99
[2025-07-20 09:56] VITALS: BP 136/78; PULSE 74; O2SAT 99
== END 2025-07-20 10:01 | disposition home or self-care (01) ==
LOC: SURGOUT 07:22
PROVIDERS: PCP Family Medicine; Visit Provider Surgery
PROC: (CPT 45385; principal; 2025-07-20 08:30)
DX: Z12.11 Encounter for screening for malignant neoplasm of colon (principal); Z86.0100 Personal history of colon polyps, unspecified; K57.30 Diverticulosis of large intestine without perforation or abscess without bleeding; Z80.0 Family history of malignant neoplasm of digestive organs; D12.5 Benign neoplasm of sigmoid colon; I10 Essential (primary) hypertension; J44.9 Chronic obstructive pulmonary disease, unspecified; E11.9 Type 2 diabetes mellitus without complications; Z87.891 Personal history of nicotine dependence; Z79.84 Long term (current) use of oral hypoglycemic drugs; Z90.710 Acquired absence of both cervix and uterus
CPT/HCPCS: 45385; 36415; 82948; 88305; J2704